=== PATIENT | male | born 1955 | race Caucasian/White ===

== ENCOUNTER 2020-11-16 10:09 | Outpatient (CLI) | payer OTHER, SELFPAY ==
--- NOTE | 2020-11-16 12:47 | ONC CON_ITS ---
Dr. Jane New Patient Note Patient: Jt Tate V Unit #: [id number]: 1955 Dicatated By: Andre Jane M.D.Date of Visit: Nov 16, 2020 Onc MED New Patient/Consult Referring Physician: YULIA Johnson Chief Complaint: Lymphoma. History of Present Illness: This is a 65 year-old man with low-grade non-Hodgkin's lymphoma. He had presented in February 2011 with a distal small bowel obstruction. He underwent exploratory laparotomy with segmental small bowel resection. Pathology showed follicular lymphoma which was involving the entire wall of the bowel and extending into the mesentery soft tissue and lymph nodes, but the margins were reported to be free. A PET CT at that time showed mild increased activity adjacent to the surgical site in the left lower abdomen which was felt to most likely represent postoperative change. There was slightly greater than usual activity at the anticipated level of the terminal ileum. There were just a few abdominal lymph nodes which showed no abnormal hypermetabolic activity. He received no further treatment. He had been seen here intermittently from June 2012 through January 2016. During that time, there have been no significant disease progression. He then continued his further follow-up with oncologist and [facility]. As of May 2019 there had been significant disease progression by CT scan, most significantly in a left iliac lymph node which had gradually increased to 8 cm. At that point he did complete a 4-week course of rituximab, which he tolerated well. His most recent follow-up CT scans, from 11/18/2019, showed indeterminant right paratracheal/precarinal lymph node measuring 15 x 12 mm. There is no other adenopathy in the chest. There is a 9 mm subpleural calcified granuloma in the posterior right lower lobe and a 1.5 mm lateral left lower lobe noncalcified nodule. The abdomen/pelvis showed 2 adjacent left upper mesenteric masses, one measuring 4.13 x 3.70 cm and the other located slightly anterior and inferior measuring 2.76 x 1.49 cm. A radha mass measuring 3.22 x 3.66 cm was noted slightly more inferior in the left paramedian mesentery. Scattered retroperitoneal lymph nodes were noted including a 1.6 x 1.0 cm aortocaval node and a 1.6 x 0.9 cm para-aortic node at the level of the renal chester. There were nodes at the left iliac bifurcation, the largest measuring 1.0 x 0.9 cm. A left external iliac node measured 2.50 x 1.63 cm and a left obturator/more proximal external iliac lymph node measured 2.06 x 1.65 cm. At that point he continued on observation/expectant management. His other medical illnesses include hypertension, type II diabetes, and obstructive sleep apnea. He has been able to manage the diabetes with diet. He has history of smoking 1 pack of cigarettes daily. INTERIM HISTORY: He is seen for a followup visit, as he had retired in June and he is now living back in the [facility]. He has been feeling good generally. He has good energy and activity tolerance. His ECOG score is 0. His appetite is good. He has had an intentional 30 pound weight loss for management of his diabetes. He does not have fever or night sweats. He has no shortness of breath, cough, or chest pain. Last year he underwent cholecystectomy for symptomatic cholelithiasis. He currently has no GI or complaints. He has developed some joint pain, mainly in the hands, right shoulder, and left knee. He sometimes has headache. He has no focal neurologic symptoms. Past Medical History: His medical history includes hypertension, low-grade lymphoma, obstructive sleep apnea, and type II diabetes. Past Surgical History: His surgical/procedural history includes arthroscopic right knee surgery x 2, tonsillectomy, cholecystectomy in 2019, Colonoscopy in 2011, and exploratory laparotomy with segmental small bowel resection in 2010. Medications: Sildenafil Citrate Tablet Oral Allergies: No Known Allergies. Social History: Mr. 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 He has a history of smoking 1 pack of cigarettes daily for 40 years. He currently does not drink alcohol. Family History: Father of lung cancer at age 68. Mother in her 70s of cancer, probably [employer] origin. A sister has lupus. Review Of Symptoms: Constitutional - He has been feeling good generally. He has good energy and activity tolerance. His appetite has been good. He has had an intentional weight loss of 30 pounds for management of diabetes. He does not have fever or night sweats. ECOG score is 0, Eyes - No change in vision, ENMT - No hearing loss or tinnitus. No sinus congestion/drainage. No mouth sores. No sore throat or difficulty swallowing, Hematologic/Lymphatic - No abnormal bruising or bleeding, Respiratory - No shortness of breath. He has nonproductive cough. No pleuritic pain or hemoptysis, Cardiovascular - No angina pain. No palpitations, Gastrointestinal - No nausea or vomiting. No heartburn or acid reflux. No diarrhea or constipation. No blood in the stool or black stools, Genitourinary (M) - No dysuria or hematuria. No urinary frequency. No urgency or incontinence, Musculoskeletal - He has little arthritis pain in his hands, and his left knee, and in his right shoulder, Integumentary - No skin rash or other skin problems, Neurologic - No headache or dizziness. No numbness or tingling. No other focal neurologic symptoms, Psychiatric - No anxiety or depression. No insomnia. Vital Signs: Performed on Nov 16, 2020 11:00: 0, 0, 30.38 (HIGH), 2.24 sq.m, 72.00 in, 98 %, 69 /min, 18 /min, 167/84 mm(hg) (HIGH), 98.6 F, and 224 lbs (LOW). Physical Examination: Constitutional - He appears to be in good general health, Eyes - Sclerae nonicteric. Conjunctivae clear, ENMT - No lesions noted in the oral cavity, Neck - No mass or thyromegaly, Hematologic/Lymphatic - No cervical, clavicular, or axillary adenopathy, Respiratory - Lungs are clear with some decrease in air movement bilaterally, Cardiovascular - Heart rhythm is regular. There is a II/ systolic murmur. There is no gallop or rub noted, Abdomen - Soft and non-tender. Liver and spleen are not enlarged. There is no abdominal mass or ascites noted and there is no inguinal adenopathy, Back/Spine - No spine or CVA tenderness noted, Extremities - No edema, Integumentary - No rashes. No suspicious skin lesions noted, Neurologic - No focal neurologic deficits noted. Lab/Imaging: His recent laboratory studies included comprehensive metabolic profile which showed BUN 14 and creatinine 1.28 mg/dL, total bilirubin 0.7 mg/dL, normal alkaline phosphatase and SGOT, and slightly elevated SGPT at 44/41 U/L. PSA was low at 0.4 ng/mL. His lipid profile showed total cholesterol 163 mg/dL, low HDL at 35 mg/dL, and calculated LDL 117 mg/dL. Problem List: 1. Low-grade non-Hodgkin's lymphoma (follicular B-cell lymphoma). 2. Hypertension. 3. Type 2 diabetes, diet controlled. 4. GERD. 5. Obstructive sleep apnea. Problems Addressed with this Encounter and Plan: Patient with low-grade non-Hodgkin's lymphoma (follicular B-cell lymphoma) involving the small intestine, for which he underwent exploratory laparotomy/segmental small bowel resection in February 2011. He was then followed expectantly. In May 2019 he began a 4-week course of rituximab for disease progression in the abdomen/pelvis region. He tolerated the treatment well, and he appears to have had a good response. His most recent CT scans, from October 2019, did show residual disease in the abdominal mesentery on the left side as well as some radha disease in the retroperitoneum and left iliac area. He has not been symptomatic with it. At this point I will review his October 2019 CT scans for comparison to prior studies done here, as he does have discs with him. It is my expectation that he will then be scheduled to have restaging CT scans done here, as it has been a year since his last studies. He will have further evaluation as indicated. However, in the absence of symptomatic disease progression, he will just remain on observation/expectant management. Signed By: Andre Jane M.D. <<Signature on File>>
== END 2020-11-16 10:10 | disposition home or self-care (01) ==
LOC: ONCMED 10:13
PROVIDERS: PCP Physician Assistant Medical; Visit Provider Internal Medicine Medical Oncology
DX: C82.88 Other types of follicular lymphoma, lymph nodes of multiple sites (principal); Z92.22 Personal history of monoclonal drug therapy
CPT/HCPCS: 99214

== ENCOUNTER 2020-12-17 15:53 | Outpatient (CLI) | payer OTHER, SELFPAY ==
--- NOTE | 2020-12-18 06:41 | ONC FU_ITS ---
Dr. Jane Patient Follow-Up Note Patient: Jt Tate V Unit #: [id number]: 1955 Dicatated By: Andre Jane M.D.Date of Visit:Dec 17, 2020 Onc Med Follow-up/Prog Note Chief Complaint: Lymphoma. History of Present Illness: This is a 65 year-old man with low-grade non-Hodgkin's lymphoma. He had presented in February 2011 with a distal small bowel obstruction. He underwent exploratory laparotomy with segmental small bowel resection. Pathology showed follicular lymphoma which was involving the entire wall of the bowel and extending into the mesentery soft tissue and lymph nodes, but the margins were reported to be free. A PET CT at that time showed mild increased activity adjacent to the surgical site in the left lower abdomen which was felt to most likely represent postoperative change. There was slightly greater than usual activity at the anticipated level of the terminal ileum. There were just a few abdominal lymph nodes which showed no abnormal hypermetabolic activity. He received no further treatment. He had been seen here intermittently from June 2012 through January 2016. During that time, there have been no significant disease progression. He then continued his further follow-up with oncologist and [place], [place]. As of May 2019 there had been significant disease progression by CT scan, most significantly in a left iliac lymph node which had gradually increased to 8 cm. At that point he did complete a 4-week course of rituximab, which he tolerated well. His most recent follow-up CT scans, from 11/18/2019, showed indeterminant right paratracheal/precarinal lymph node measuring 15 x 12 mm. There was no other adenopathy in the chest. There was a 9 mm subpleural calcified granuloma in the posterior right lower lobe and a 1.5 mm lateral left lower lobe noncalcified nodule. The abdomen/pelvis showed 2 adjacent left upper mesenteric masses, one measuring 4.13 x 3.70 cm and the other located slightly anterior and inferior measuring 2.76 x 1.49 cm. A radha mass measuring 3.22 x 3.66 cm was noted slightly more inferior in the left paramedian mesentery. Scattered retroperitoneal lymph nodes were noted including a 1.6 x 1.0 cm aortocaval node and a 1.6 x 0.9 cm para-aortic node at the level of the renal chester. There were nodes at the left iliac bifurcation, the largest measuring 1.0 x 0.9 cm. A left external iliac node measured 2.50 x 1.63 cm and a left obturator/more proximal external iliac lymph node measured 2.06 x 1.65 cm. At that point he continued on observation/expectant management. His other medical illnesses include hypertension, type II diabetes, and obstructive sleep apnea. He has been able to manage the diabetes with diet. He has history of smoking 1 pack of cigarettes daily. INTERIM HISTORY: He returned here for a follow-up visit on 11/16/2020. At that time he was not overtly symptomatic. He had a restaging CT scans of the chest, abdomen, and pelvis on 11/25/2020. There was no evidence for lymphadenopathy in the chest area. There was noted to be a calcified right hilar lymph node and calcified granulomas in the right lung. A noncalcified nodule in the left lower lobe measure 2 mm. The abdomen/pelvis showed multiple enlarged periaortic and aortocaval lymph nodes ranging from 1 to 2.5 cm. There were bilateral enlarged iliac lymph nodes ranging from 1 to 5 cm, more prominent on the left. A left mesenteric mass measuring 7.8 x 7.8 x 6.8 cm was noted to encase the mesenteric vessels that appeared contiguous with surrounding small bowel loops. A second irregular mass contiguous with the adjacent small bowel within the left lower hemiabdomen measured 5 cm. There was an additional mid lower mesentery mass or enlarged lymph nodes measuring 4.5 cm. There were multilevel level lumbar discogenic and facet degenerative changes contributing to severe spinal canal stenosis at L3/4. I reviewed those studies with the radiologist, and in comparison to the prior CT scans from 11/18/2019, there was significant disease progression. He is seen for a follow-up visit. He still feels good generally, though he notes that he does gets worn out quickly. His ECOG score is 1. He has good appetite. He has not had fever. He sometimes has sweating at night. He has had some cough. He does not complain of shortness of breath or chest pain. He occasionally has pain in his abdomen/left side. He has no other GI complaints with the exception that he has been passing smaller caliber stools. Bladder function has been okay. He has pain in his right shoulder and left knee. He has not been having any significant back pain, and he has no focal neurologic symptoms. Medications: Sildenafil Citrate Tablet Oral Allergies: No Known Allergies. Vital Signs: Performed on Dec 17, 2020 16:05 Height - 72.00 in Weight - 203.2 lbs (LOW) BSA - 2.14 sq.m BMI - 27.56 Temperature - 99.2 F (HIGH) Pulse - 75 /min Respiration - 18 /min BP - 171/86 mm(hg) (HIGH) O2 Sat - 97 % Pain - 0 Fatigue - 4 Physical Examination: Constitutional - He looks good generally, Eyes - Sclerae nonicteric. Conjunctivae clear, ENMT - No lesions noted in the oral cavity, Hematologic/Lymphatic - No cervical, clavicular, or axillary adenopathy noted, Respiratory - Lungs are clear with some decrease in air movement bilaterally, Cardiovascular - Heart rhythm is regular. There is a II/ systolic murmur. There is no gallop or rub noted, Abdomen - Soft. Liver and spleen are not enlarged. There is no abdominal mass or ascites noted and there is no inguinal adenopathy, Extremities - No edema, Neurologic - No focal neurologic deficits noted. Problem List: 1. Low-grade non-Hodgkin's lymphoma (follicular B-cell lymphoma). 2. Hypertension. 3. Type 2 diabetes, diet controlled. 4. GERD. 5. Obstructive sleep apnea. Problems Addressed with this Encounter and Plan: Patient with low-grade non-Hodgkin's lymphoma (follicular B-cell lymphoma) involving the small intestine, for which he underwent exploratory laparotomy/segmental small bowel resection in February 2011. He was then followed expectantly. In May 2019 he began a 4-week course of rituximab for disease progression in the abdomen/pelvis region. He tolerated the treatment well, and he appeared to have a good response. His repeat CT scans from October 2019 did show residual disease in the abdominal mesentery on the left side as well as some radha disease in the retroperitoneum and left iliac area. His restaging CT scans from 11/25/2020 showed significant disease progression including a left mesenteric mass measuring 7.8 x 7.8 x 6.8 cm. He appears to be only minimally symptomatic. However, with fairly rapid disease progression and with relatively bulky disease, he is recommended to proceed with second line treatment. I do have some concern about the possibility of transformation to high-grade lymphoma. As such, I am first going to schedule him for restaging PET/CT, subject to verification of insurance coverage. I will consider further evaluation with biopsy if there are areas of higher level FDG avidity. Otherwise, he will proceed to second line treatment with bendamustine a combination with obinutuzumab. Again, will be subject to verification of insurance coverage. Signed By: Andre Jane M.D. <<Signature on File>>
== END 2020-12-17 15:54 | disposition home or self-care (01) ==
LOC: ONCMED 15:56
PROVIDERS: PCP Physician Assistant Medical; Visit Provider Internal Medicine Medical Oncology
DX: C82.88 Other types of follicular lymphoma, lymph nodes of multiple sites (principal); I10 Essential (primary) hypertension; G47.33 Obstructive sleep apnea (adult) (pediatric); N52.9 Male erectile dysfunction, unspecified; E11.9 Type 2 diabetes mellitus without complications; K21.9 Gastro-esophageal reflux disease without esophagitis; Z79.899 Other long term (current) drug therapy
CPT/HCPCS: 99214

== ENCOUNTER 2021-01-19 06:56 | Outpatient (CLI) | payer OTHER, SELFPAY ==
--- NOTE | 2021-01-19 | US_ITS ---
WS: [id number] INDICATION: Ultrasound biopsy left obturator lymph node TECHNIQUE: The procedure including risks, benefits, and complications were discussed with the patient who agreed to proceed. Timeout was performed. Patient was prepped and draped in usual sterile fashio n. After 1% lidocaine, using ultrasound guidance, 5 18-gauge cores were obtained of the left obturato r lymph node. Patient remained in the ultrasound Suite 10 minutes postprocedure to assess for bleedin g with ultrasound guidance. No immediate complications. Patient was discharged in stable condition. US/US biopsy lymph node [id number] IMPRESSION: Uncomplicated biopsy left obturator lymph node.
[2021-01-22 09:35] LABS: Miscellaneous Test See Scanned Lab Rpt
== END 2021-01-19 06:57 | disposition home or self-care (01) ==
LOC: RAD 06:56
PROVIDERS: PCP Physician Assistant Medical; Visit Provider Internal Medicine Medical Oncology
DX: C85.90 Non-Hodgkin lymphoma, unspecified, unspecified site (principal)
CPT/HCPCS: 38505; 76942; 88184; 88185; 88271; 88275; 88305

== ENCOUNTER 2021-02-23 08:33 | Outpatient (CLI) | payer OTHER, SELFPAY ==
--- NOTE | 2021-02-23 19:53 | ONC FU_ITS ---
Dr. Jane Patient Follow-Up Note Patient: Jt Tate V Unit #: [id number]: 1955 Dicatated By: Andre Jane M.D.Date of Visit:Feb 23, 2021 Onc Med Follow-up/Prog Note Chief Complaint: Lymphoma. History of Present Illness: This is a 65 year-old man with low-grade non-Hodgkin's lymphoma. He had presented in February 2011 with a distal small bowel obstruction. He underwent exploratory laparotomy with segmental small bowel resection. Pathology showed follicular lymphoma which was involving the entire wall of the bowel and extending into the mesentery soft tissue and lymph nodes, but the margins were reported to be free. A PET CT at that time showed mild increased activity adjacent to the surgical site in the left lower abdomen which was felt to most likely represent postoperative change. There was slightly greater than usual activity at the anticipated level of the terminal ileum. There were just a few abdominal lymph nodes which showed no abnormal hypermetabolic activity. He received no further treatment. He had been seen here intermittently from June 2012 through January 2016. During that time, there have been no significant disease progression. He then continued his further follow-up with oncologist and [place], [place]. As of May 2019 there had been significant disease progression by CT scan, most significantly in a left iliac lymph node which had gradually increased to 8 cm. At that point he did complete a 4-week course of rituximab, which he tolerated well. His most recent follow-up CT scans, from 11/18/2019, showed indeterminant right paratracheal/precarinal lymph node measuring 15 x 12 mm. There was no other adenopathy in the chest. There was a 9 mm subpleural calcified granuloma in the posterior right lower lobe and a 1.5 mm lateral left lower lobe noncalcified nodule. The abdomen/pelvis showed 2 adjacent left upper mesenteric masses, one measuring 4.13 x 3.70 cm and the other located slightly anterior and inferior measuring 2.76 x 1.49 cm. A radha mass measuring 3.22 x 3.66 cm was noted slightly more inferior in the left paramedian mesentery. Scattered retroperitoneal lymph nodes were noted including a 1.6 x 1.0 cm aortocaval node and a 1.6 x 0.9 cm para-aortic node at the level of the renal chester. There were nodes at the left iliac bifurcation, the largest measuring 1.0 x 0.9 cm. A left external iliac node measured 2.50 x 1.63 cm and a left obturator/more proximal external iliac lymph node measured 2.06 x 1.65 cm. At that point he continued on observation/expectant management. His other medical illnesses include hypertension, type II diabetes, and obstructive sleep apnea. He has been able to manage the diabetes with diet. He has history of smoking 1 pack of cigarettes daily. INTERIM HISTORY: He returned here for a follow-up visit on 11/16/2020. At that time he was not overtly symptomatic. He had a restaging CT scans of the chest, abdomen, and pelvis on 11/25/2020. There was no evidence for lymphadenopathy in the chest area. There was noted to be a calcified right hilar lymph node and calcified granulomas in the right lung. A noncalcified nodule in the left lower lobe measure 2 mm. The abdomen/pelvis showed multiple enlarged periaortic and aortocaval lymph nodes ranging from 1 to 2.5 cm. There were bilateral enlarged iliac lymph nodes ranging from 1 to 5 cm, more prominent on the left. A left mesenteric mass measuring 7.8 x 7.8 x 6.8 cm was noted to encase the mesenteric vessels that appeared contiguous with surrounding small bowel loops. A second irregular mass contiguous with the adjacent small bowel within the left lower hemiabdomen measured 5 cm. There was an additional mid lower mesentery mass or enlarged lymph nodes measuring 4.5 cm. There were multilevel level lumbar discogenic and facet degenerative changes contributing to severe spinal canal stenosis at L3/4. I reviewed those studies with the radiologist, and in comparison to the prior CT scans from 11/18/2019, there was significant disease progression. Restaging PET/CT on 01/02/2021 showed small FDG positive left supraclavicular, posterior triangle, jugulodigastric, and thoracic inlet lymph nodes, likely involved with lymphoma. A left upper quadrant mesenteric mass measured 10.1 x 7.3 cm with SUV 12.3 and a secondary mesenteric mass measured 4.1 x 3.2 cm with SUV 11.6. Other smaller mesenteric nodes were also FDG positive and consistent with recurrent lymphoma. Also noted were bilateral retroperitoneal nodes, left common iliac node, and left pelvic nodes, consistent with lymphoma. An index left obturator node measured 4.1 x 3.7 cm with SUV 27.2. A superficial left inguinal node was also FDG positive. With the relatively high SUV in the left obturator lymph node I felt that biopsy was indicated to assess for possible transition to high-grade lymphoma. He then underwent ultrasound directed biopsy on 01/19/2021. Pathology was suspicious for involvement by follicular lymphoma, grade 1-2 of 3. With that finding, I had recommended that he proceed to 2nd line treatment with bendamustine in combination with obinutuzumab, and he is seen here today to initiate that treatment. He is still feeling good generally. He has good energy and is still has normal activity. ECOG score is 0. Appetite is good. He has no fever or night sweats. He does have some cough which he attributes to smoking, and he does have some shortness of breath with activity. He does not complain of chest pain. He reports that he belches a lot, his acid reflux symptoms actually have improved. He sometimes has pain in the abdominal area. He has no problems with bowel or bladder function. He has some joint pain, mainly in the knees and hands. He has just occasional headache. He has no focal neurologic symptoms. Medications: Sildenafil Citrate Tablet Oral Allergies: No Known Allergies. Vital Signs: Performed on Feb 23, 2021 11:58 Height - 72.00 in Weight - 222.6 lbs (HIGH) BSA - 2.23 sq.m BMI - 30.19 (HIGH) Temperature - 97.8 F (LOW) Pulse - 71 /min Respiration - 18 /min BP - 166/86 mm(hg) (HIGH) O2 Sat - 94 % (LOW) Pain - 0 Physical Examination: Constitutional - He looks good generally, Eyes - Sclerae nonicteric. Conjunctivae clear, ENMT - No lesions noted in the oral cavity, Hematologic/Lymphatic - No cervical, clavicular, or axillary adenopathy noted, Respiratory - Lungs are clear with some decrease in air movement bilaterally, Cardiovascular - Heart rhythm is regular. There is a II/ systolic murmur. There is no gallop or rub noted, Abdomen - Soft. Liver and spleen are not enlarged. There is no abdominal mass or ascites noted. There is a palpable left inguinal lymph node measuring the range of 1 to 2 cm, Extremities - No edema, Neurologic - No focal neurologic deficits noted. Lab/Imaging: Test performed on Feb 18, 2021 11:30 Glucose 127 mg/dL BUN 12 mg/dL Creatinine 1.02 mg/dL Cr Clearance (Est) 96.64 mL/min Sodium 139 mmol/L Potassium 4.3 mmol/L Chloride 106 mmol/L CO2 25 mmol/L Calcium 9.3 mg/dL Protein, Total 6.7 g/dL Albumin 4.0 g/dL Globulin 2.7 g/dL Bilirubin, Total 0.5 mg/dL Alkaline Phosphatase 56 IU/L AST (SGOT) 22 IU/L ALT (SGPT) 25 IU/L WBC 6.8 10^9/L RBC 5.05 10^12/L HGB 15.2 g/dL HCT 44.6 % MCV 88.3 fl MCH 30.1 pg MCHC 34.1 g/dL RDW 12.0 % Platelet Count 295 10^9/L MPV 10.4 fL Neutrophils (Gran) 4413 10^9/L Lymphocytes 1421 10^9/L Monocytes 653 10^9/L Eosinophils 211 10^9/L Basophils 102 10^9/L Manual Lymphocytes 20.9 % Manual Monocytes 9.6 % Manual Eosinophils 3.1 % Manual Basophils 1.5 % Problem List: 1. Low-grade non-Hodgkin's lymphoma (follicular B-cell lymphoma). 2. Hypertension. 3. Type 2 diabetes, diet controlled. 4. GERD. 5. Obstructive sleep apnea. Problems Addressed with this Encounter and Plan: Patient with low-grade non-Hodgkin's lymphoma (follicular B-cell lymphoma) involving the small intestine, for which he underwent exploratory laparotomy/segmental small bowel resection in February 2011. He was then followed expectantly. In May 2019 he began a 4-week course of rituximab for disease progression in the abdomen/pelvis region. He tolerated the treatment well, and he appeared to have a good response. His repeat CT scans from October 2019 did show residual disease in the abdominal mesentery on the left side as well as some radha disease in the retroperitoneum and left iliac area. His restaging CT scans from 11/25/2020 showed significant disease progression including a left mesenteric mass measuring 7.8 x 7.8 x 6.8 cm. He appears to be only minimally symptomatic. However, with fairly rapid disease progression I was concerned about the possibility of transformation to high-grade lymphoma. His restaging PET/CT on 01/02/2021 did show extensive involvement in the abdomen and pelvis, including a left obturator lymph node with a relatively high SUV at 27.2. With that finding, he underwent ultrasound directed biopsy of the left obturator lymph node on 01/19/2021. Pathology was suspicious for involvement by follicular lymphoma, grade 1-2 of 3. With significant progression of low-grade lymphoma, he was recommended to proceed to second line treatment with bendamustine and combination with obinutuzumab, and he has been scheduled to begin that treatment today. However, he had opted not to be vaccinated for the COVID-19 virus. As such, this treatment would increase his risk of having severe illness if he were to contract the COVID-19 virus infection and it would also impair his ability to respond to the Covid 19 virus vaccination for at least 6 to 12 months. Because of that I am going to confer with one of the lymphoma specialist at [facility] before initiating any treatment. Signed By: Andre Jane M.D. <<Signature on File>>
== END 2021-02-23 08:34 | disposition home or self-care (01) ==
LOC: ONCMED 08:35
PROVIDERS: PCP Physician Assistant Medical; Visit Provider Internal Medicine Medical Oncology
DX: C82.93 Follicular lymphoma, unspecified, intra-abdominal lymph nodes (principal); I10 Essential (primary) hypertension; E11.9 Type 2 diabetes mellitus without complications; K21.9 Gastro-esophageal reflux disease without esophagitis; G47.33 Obstructive sleep apnea (adult) (pediatric); Z79.899 Other long term (current) drug therapy
CPT/HCPCS: 99214

== ENCOUNTER 2021-04-19 05:33 | Outpatient (RCR) | payer OTHER, SELFPAY ==
[2021-04-05 08:58] LABS: Basophils # 0.1 10^3/uL (0.0-0.1); Basophils % 1.4 %; Eosinophils # 0.3 10^3/uL (0.0-0.8); Eosinophils % 3.7 %; Hematocrit 45.9 % (42.0-52.0); Hemoglobin 15.4 g/dL (11.7-16.6); Lymphocytes # 1.1 10^3/uL (0.8-4.8); Lymphocytes % 14.9 %; Mean Corpuscular HGB Conc 33.6 g/dL (30.0-36.0); Mean Corpuscular Hemoglobin 29.6 pg (28.0-34.0); Mean Corpuscular Volume 88.3 fl (80-94); Mean Platelet Volume 10.1 fL (7.4-10.4); Monocytes # 0.7 10^3/uL (0.2-0.9); Monocytes % 9.2 %; Neutrophils # 5.14 10^3/uL (1.8-7.7); Neutrophils % 70.4 %; Nucleated Red Blood Cells % 0 %; Platelet Count 255 10^3/cmm (130-400); Red Cell Distribution Width 12.6 % (12.1-15.1); White Blood Count 7.3 10^3/uL (4.0-10.0)
[2021-04-05 09:27] LABS: Alanine Aminotransferase 22 U/L (0-41); Albumin Level 3.9 g/dL (3.5-5.2); Alkaline Phosphatase 60 IU/L (40-130); Anion Gap 13.4 (5-19); Aspartate Amino Transferase 17 U/L (0-40); Blood Urea Nitrogen 13 mg/dL (8-23); Carbon Dioxide 24 mmol/L (22-29); Chloride 105 mmol/L (98-107); Globulin 2.7 g/dL (1.3-4.6); Glomerular Filtration Rate 85.2 mL/min (90-130); Glucose 159 mg/dL (65-115); Osmolality Calculated 289 mOsm/kg (285-295); Potassium 4.4 mmol/L (3.5-5.1); Sodium 138 mmol/L (136-145); Total Bilirubin 0.7 mg/dL (0.15-1.2); Total Protein 6.6 g/dL (6.6-8.7)
[2021-04-05] MEDS: sodium chloride 0.9% 500 ML 999 ML IV (10:05)
[2021-04-05] MEDS: acetaminophen 325 mg Tablet 650 MG PO (10:05)
[2021-04-05] MEDS: diphenhydrAMINE 50 mg/mL SDV 1mL IVP (10:05)
[2021-04-05 10:30] LABS: Lactate Dehydrogenase 225 U/L (135-225)
[2021-04-05] MEDS: dexamethasone 20 MG in sodium chloride 0.9% 50 ML 187 MG IV (10:50)
[2021-04-05] MEDS: diphenhydrAMINE 50 mg/mL SDV 1mL 25 MG IVP (13:20)
--- NOTE | 2021-04-05 17:15 | ONC FU_ITS ---
Dr. Jane Patient Follow-Up Note Patient: Jt Tate V Unit #: [id number]: 1955 Dicatated By: Andre Jane M.D.Date of Visit:Apr 05, 2021 Onc Med Follow-up/Prog Note Chief Complaint: Lymphoma. History of Present Illness: This is a 65 year-old man with low-grade non-Hodgkin's lymphoma. He had presented in February 2011 with a distal small bowel obstruction. He underwent exploratory laparotomy with segmental small bowel resection. Pathology showed follicular lymphoma which was involving the entire wall of the bowel and extending into the mesentery soft tissue and lymph nodes, but the margins were reported to be free. A PET CT at that time showed mild increased activity adjacent to the surgical site in the left lower abdomen which was felt to most likely represent postoperative change. There was slightly greater than usual activity at the anticipated level of the terminal ileum. There were just a few abdominal lymph nodes which showed no abnormal hypermetabolic activity. He received no further treatment. He had been seen here intermittently from June 2012 through January 2016. During that time, there have been no significant disease progression. He then continued his further follow-up with oncologist and [place], [place]. As of May 2019 there had been significant disease progression by CT scan, most significantly in a left iliac lymph node which had gradually increased to 8 cm. At that point he did complete a 4-week course of rituximab, which he tolerated well. His most recent follow-up CT scans, from 11/18/2019, showed indeterminant right paratracheal/precarinal lymph node measuring 15 x 12 mm. There was no other adenopathy in the chest. There was a 9 mm subpleural calcified granuloma in the posterior right lower lobe and a 1.5 mm lateral left lower lobe noncalcified nodule. The abdomen/pelvis showed 2 adjacent left upper mesenteric masses, one measuring 4.13 x 3.70 cm and the other located slightly anterior and inferior measuring 2.76 x 1.49 cm. A radha mass measuring 3.22 x 3.66 cm was noted slightly more inferior in the left paramedian mesentery. Scattered retroperitoneal lymph nodes were noted including a 1.6 x 1.0 cm aortocaval node and a 1.6 x 0.9 cm para-aortic node at the level of the renal chester. There were nodes at the left iliac bifurcation, the largest measuring 1.0 x 0.9 cm. A left external iliac node measured 2.50 x 1.63 cm and a left obturator/more proximal external iliac lymph node measured 2.06 x 1.65 cm. At that point he continued on observation/expectant management. His other medical illnesses include hypertension, type II diabetes, and obstructive sleep apnea. He has been able to manage the diabetes with diet. He has history of smoking 1 pack of cigarettes daily. INTERIM HISTORY: He returned here for a follow-up visit on 11/16/2020. At that time he was not overtly symptomatic. He had a restaging CT scans of the chest, abdomen, and pelvis on 11/25/2020. There was no evidence for lymphadenopathy in the chest area. There was noted to be a calcified right hilar lymph node and calcified granulomas in the right lung. A noncalcified nodule in the left lower lobe measure 2 mm. The abdomen/pelvis showed multiple enlarged periaortic and aortocaval lymph nodes ranging from 1 to 2.5 cm. There were bilateral enlarged iliac lymph nodes ranging from 1 to 5 cm, more prominent on the left. A left mesenteric mass measuring 7.8 x 7.8 x 6.8 cm was noted to encase the mesenteric vessels that appeared contiguous with surrounding small bowel loops. A second irregular mass contiguous with the adjacent small bowel within the left lower hemiabdomen measured 5 cm. There was an additional mid lower mesentery mass or enlarged lymph nodes measuring 4.5 cm. There were multilevel level lumbar discogenic and facet degenerative changes contributing to severe spinal canal stenosis at L3/4. I reviewed those studies with the radiologist, and in comparison to the prior CT scans from 11/18/2019, there was significant disease progression. Restaging PET/CT on 01/02/2021 showed small FDG positive left supraclavicular, posterior triangle, jugulodigastric, and thoracic inlet lymph nodes, likely involved with lymphoma. A left upper quadrant mesenteric mass measured 10.1 x 7.3 cm with SUV 12.3 and a secondary mesenteric mass measured 4.1 x 3.2 cm with SUV 11.6. Other smaller mesenteric nodes were also FDG positive and consistent with recurrent lymphoma. Also noted were bilateral retroperitoneal nodes, left common iliac node, and left pelvic nodes, consistent with lymphoma. An index left obturator node measured 4.1 x 3.7 cm with SUV 27.2. A superficial left inguinal node was also FDG positive. With the relatively high SUV in the left obturator lymph node I felt that biopsy was indicated to assess for possible transition to high-grade lymphoma. He then underwent ultrasound directed biopsy on 01/19/2021. Pathology was suspicious for involvement by follicular lymphoma, grade 1-2 of 3. With that finding, I had recommended that he proceed to 2nd line treatment with bendamustine in combination with obinutuzumab. I had seen him for initiation of treatment on 02/23/2021. At that point he had not been vaccinated for COVID-19 and given the potential immunosuppression that would be associated anti-CD20 therapy and also with bendamustine, I had strongly recommended that he be vaccinated prior to starting treatment. He did agree, and he is now 6 weeks out from receiving the [employer] Covid vaccine. He is still feeling good generally. Energy is pretty good. He is able to do light work. ECOG score is 1. Appetite is also good. He has not had fever. He has a little bit of night sweating. He does not complain of shortness of breath, cough, or chest pain. He has no GI or complaints. He has some joint pain, which is chronic. He does not complain of headache or dizziness, and he has no focal neurologic symptoms. Medications: Sildenafil Citrate Tablet Oral Allergies: No Known Allergies. Vital Signs: Performed on Apr 05, 2021 15:53 Height - 72.00 in Temperature - 98.8 F Pulse - 94 /min Respiration - 18 /min BP - 136/86 mm(hg) O2 Sat - 94 % (LOW) Performed on Apr 05, 2021 10:05 Height - 72.00 in Weight - 226.4 lbs (HIGH) BSA - 2.25 sq.m BMI - 30.71 (HIGH) Temperature - 98.6 F Pulse - 74 /min Respiration - 18 /min BP - 154/87 mm(hg) (HIGH) O2 Sat - 96 % Pain - 0 Fatigue - 0 Physical Examination: Constitutional - He looks good generally, Eyes - Sclerae nonicteric. Conjunctivae clear, ENMT - No lesions noted in the oral cavity, Hematologic/Lymphatic - No cervical, clavicular, or axillary adenopathy noted, Respiratory - Lungs are clear with some decrease in air movement bilaterally, Cardiovascular - Heart rhythm is regular. There is a II/ systolic murmur. There is no gallop or rub noted, Abdomen - Soft. Liver and spleen are not enlarged. There is no abdominal mass or ascites noted. There is a palpable left inguinal lymph node measuring the range of 2 cm, Extremities - No edema, Neurologic - No focal neurologic deficits noted. Lab/Imaging: Test performed on Apr 05, 2021 08:15 LDH (Total) 225 U/L Sodium 138 mmol/L Potassium 4.4 mmol/L Chloride 105 mmol/L CO2 24 mmol/L Anion Gap 13.4 BUN 13 mg/dL Creatinine 0.9 mg/dL Cr Clearance (Est) 122.03 mL/min eGFR 85.2 mL/min Glucose 159 mg/dL Osmolality - Calculated 289 mOsm/kg Calcium 9.0 mg/dL Protein, Total 6.6 g/dL Albumin 3.9 g/dL Globulin 2.7 g/dL Bilirubin, Total 0.7 mg/dL ALT (SGPT) 22 U/L AST (SGOT) 17 U/L Alkaline Phosphatase 60 IU/L WBC 7.3 10 3/uL RBC 5.20 10 6/uL HGB 15.4 g/dL HCT 45.9 % MCV 88.3 fl MCH 29.6 pg MCHC 33.6 g/dL RDW 12.6 % Platelet Count 255 10 3/cmm MPV 10.1 fL Neutrophils 5.14 10 3/uL Lymphocytes 1.1 10 3/uL Monocytes 0.7 10 3/uL Eosinophils 0.3 10 3/uL Basophils 0.1 10 3/uL Neutrophil % 70.4 % Lymphocyte % 14.9 % Monocyte % 9.2 % Eosinophil % 3.7 % Basophils % 1.4 % NRBC % 0 % Problem List: 1. Low-grade non-Hodgkin's lymphoma (follicular B-cell lymphoma). 2. Hypertension. 3. Type 2 diabetes, diet controlled. 4. GERD. 5. Obstructive sleep apnea. Problems Addressed with this Encounter and Plan: Patient with low-grade non-Hodgkin's lymphoma (follicular B-cell lymphoma) involving the small intestine, for which he underwent exploratory laparotomy/segmental small bowel resection in February 2011. He was then followed expectantly. In May 2019 he began a 4-week course of rituximab for disease progression in the abdomen/pelvis region. He tolerated the treatment well, and he appeared to have a good response. His repeat CT scans from October 2019 did show residual disease in the abdominal mesentery on the left side as well as some radha disease in the retroperitoneum and left iliac area. His restaging CT scans from 11/25/2020 showed significant disease progression including a left mesenteric mass measuring 7.8 x 7.8 x 6.8 cm. He appears to be only minimally symptomatic. However, with fairly rapid disease progression I was concerned about the possibility of transformation to high-grade lymphoma. His restaging PET/CT on 01/02/2021 did show extensive involvement in the abdomen and pelvis, including a left obturator lymph node with a relatively high SUV at 27.2. With that finding, he underwent ultrasound directed biopsy of the left obturator lymph node on 01/19/2021. Pathology was suspicious for involvement by follicular lymphoma, grade 1-2 of 3. With significant progression of low-grade lymphoma, he was recommended to proceed to second line treatment with bendamustine and combination with obinutuzumab. His treatment was initially deferred pending completion of his COVID-19 vaccination. He will now begin cycle 1 of bendamustine/obinutuzumab with the bendamustine administered on days 1 and 2 and with the obinutuzumab administered on days 1, 8, and 15 with the first cycle. His blood counts will be monitored weekly. He will be scheduled for a follow-up visit in 4 weeks. Signed By: Andre Jane M.D. <<Signature on File>>
[2021-04-06] MEDS: sodium chloride 0.9% 500 ML 999 ML IV (08:52)
[2021-04-06] MEDS: dexamethasone 20 MG in sodium chloride 0.9% 50 ML 187 MG IV (08:52)
[2021-04-06] MEDS: acetaminophen 325 mg Tablet 650 MG PO (08:52)
[2021-04-06] MEDS: diphenhydrAMINE 50 mg/mL SDV 1mL IVP (09:24)
[2021-04-06] MEDS: sodium chloride 0.9% (100 ml) 100 ML 500 ML (09:24)
[2021-04-12 08:52] LABS: Basophils # 0.1 10^3/uL (0.0-0.1); Basophils % 0.9 %; Eosinophils # 0.4 10^3/uL (0.0-0.8); Eosinophils % 5.8 %; Hematocrit 44.7 % (42.0-52.0); Hemoglobin 15.2 g/dL (11.7-16.6); Lymphocytes # 0.2 10^3/uL (0.8-4.8); Mean Corpuscular Hemoglobin 29.7 pg (28.0-34.0); Mean Corpuscular Volume 87.5 fl (80-94); Mean Platelet Volume 10.5 fL (7.4-10.4); Monocytes % 12.9 %; Neutrophils # 5.89 10^3/uL (1.8-7.7); Nucleated Red Blood Cells % 0 %; Platelet Count 257 10^3/cmm (130-400); Red Blood Count 5.11 10^6/uL (4.1-5.3); Red Cell Distribution Width 12.5 % (12.1-15.1); White Blood Count 7.7 10^3/uL (4.0-10.0)
[2021-04-12 09:13] LABS: Alanine Aminotransferase 28 U/L (0-41); Albumin Level 3.8 g/dL (3.5-5.2); Alkaline Phosphatase 59 IU/L (40-130); Anion Gap 14.2 (5-19); Aspartate Amino Transferase 17 U/L (0-40); Blood Urea Nitrogen 14 mg/dL (8-23); Calcium 8.8 mg/dL (8.5-10.5); Carbon Dioxide 24 mmol/L (22-29); Chloride 104 mmol/L (98-107); Globulin 2.6 g/dL (1.3-4.6); Glomerular Filtration Rate 97.6 mL/min (90-130); Glucose 128 mg/dL (65-115); Osmolality Calculated 288 mOsm/kg (285-295); Potassium 4.2 mmol/L (3.5-5.1); Sodium 138 mmol/L (136-145); Total Bilirubin 0.9 mg/dL (0.15-1.2); Total Protein 6.4 g/dL (6.6-8.7)
[2021-04-12] MEDS: acetaminophen 325 mg Tablet 650 MG PO (09:30)
[2021-04-12] MEDS: diphenhydrAMINE 50 mg/mL SDV 1mL 25 MG IV (09:32)
[2021-04-12] MEDS: dexamethasone 20 MG in sodium chloride 0.9% 50 ML 187 MG IV (09:35)
[2021-04-12] MEDS: sodium chloride 0.9% 500 ML 999 ML IV (10:00)
[2021-04-19 10:46] LABS: Basophils # 0.1 10^3/uL (0.0-0.1); Basophils % 1.3 %; Eosinophils # 0.2 10^3/uL (0.0-0.8); Eosinophils % 3.2 %; Hematocrit 44.5 % (42.0-52.0); Hemoglobin 14.8 g/dL (11.7-16.6); Lymphocytes # 0.6 10^3/uL (0.8-4.8); Lymphocytes % 7.7 %; Mean Corpuscular HGB Conc 33.3 g/dL (30.0-36.0); Mean Corpuscular Hemoglobin 29.5 pg (28.0-34.0); Mean Corpuscular Volume 88.8 fl (80-94); Mean Platelet Volume 10.2 fL (7.4-10.4); Monocytes # 1.3 10^3/uL (0.2-0.9); Monocytes % 16.9 %; Neutrophils # 5.22 10^3/uL (1.8-7.7); Neutrophils % 70.2 %; Nucleated Red Blood Cells % 0 %; Platelet Count 255 10^3/cmm (130-400); Red Blood Count 5.01 10^6/uL (4.1-5.3); Red Cell Distribution Width 12.8 % (12.1-15.1); White Blood Count 7.4 10^3/uL (4.0-10.0)
[2021-04-19] MEDS: sodium chloride 0.9% (100 ml) 100 ML 300 ML (11:18)
[2021-04-19] MEDS: acetaminophen 325 mg Tablet 650 MG PO (11:18)
[2021-04-19] MEDS: diphenhydrAMINE 50 mg/mL SDV 1mL IVP (11:18)
[2021-04-19] MEDS: sodium chloride 0.9% 500 ML 999 ML IV (11:18)
[2021-04-19] MEDS: dexamethasone 20 MG in sodium chloride 0.9% 50 ML 187 MG IV (11:39)
== END 2021-04-20 23:59 | disposition home or self-care (01) ==
LOC: ONCMED 05:33
PROVIDERS: PCP Physician Assistant Medical; Visit Provider Internal Medicine Medical Oncology
DX: Z51.11 Encounter for antineoplastic chemotherapy (principal); C81.70 Other Hodgkin lymphoma, unspecified site; I10 Essential (primary) hypertension; E11.9 Type 2 diabetes mellitus without complications; K21.9 Gastro-esophageal reflux disease without esophagitis; G47.33 Obstructive sleep apnea (adult) (pediatric); Z79.899 Other long term (current) drug therapy
CPT/HCPCS: 36415; 80053; 83615; 85025; 96367; 96375; 96413; 96415; 96417; 99214; J1100; J1200; J7040; J7050; J9034; J9301

== ENCOUNTER 2021-05-04 08:45 | Outpatient (RCR) | payer OTHER, SELFPAY ==
[2021-04-27 16:42] LABS: Basophils # 0.1 10^3/uL (0.0-0.1); Basophils % 1.6 %; Eosinophils # 0.2 10^3/uL (0.0-0.8); Eosinophils % 2.9 %; Hematocrit 43.6 % (42.0-52.0); Hemoglobin 14.3 g/dL (11.7-16.6); Lymphocytes # 0.9 10^3/uL (0.8-4.8); Lymphocytes % 12.3 %; Mean Corpuscular HGB Conc 32.8 g/dL (30.0-36.0); Mean Corpuscular Hemoglobin 29.2 pg (28.0-34.0); Mean Platelet Volume 9.9 fL (7.4-10.4); Monocytes # 1.5 10^3/uL (0.2-0.9); Monocytes % 19.6 %; Neutrophils # 4.78 10^3/uL (1.8-7.7); Neutrophils % 62.6 %; Nucleated Red Blood Cells % 0 %; Platelet Count 264 10^3/cmm (130-400); Red Cell Distribution Width 12.8 % (12.1-15.1); White Blood Count 7.6 10^3/uL (4.0-10.0)
[2021-05-03 09:42] LABS: Basophils # 0.1 10^3/uL (0.0-0.1); Basophils % 1.3 %; Eosinophils # 0.2 10^3/uL (0.0-0.8); Eosinophils % 2.9 %; Hemoglobin 14.6 g/dL (11.7-16.6); Lymphocytes # 0.6 10^3/uL (0.8-4.8); Lymphocytes % 9.5 %; Mean Corpuscular Hemoglobin 30.4 pg (28.0-34.0); Mean Corpuscular Volume 89.6 fl (80-94); Mean Platelet Volume 10.2 fL (7.4-10.4); Monocytes # 0.8 10^3/uL (0.2-0.9); Monocytes % 12.7 %; Neutrophils # 4.54 10^3/uL (1.8-7.7); Neutrophils % 73.3 %; Nucleated Red Blood Cells % 0 %; Platelet Count 196 10^3/cmm (130-400); Red Cell Distribution Width 12.7 % (12.1-15.1); White Blood Count 6.2 10^3/uL (4.0-10.0)
[2021-05-03 10:28] LABS: Alanine Aminotransferase 34 U/L (0-41); Albumin Level 3.7 g/dL (3.5-5.2); Alkaline Phosphatase 58 IU/L (40-130); Aspartate Amino Transferase 30 U/L (0-40); Blood Urea Nitrogen 10 mg/dL (8-23); Calcium 8.7 mg/dL (8.5-10.5); Carbon Dioxide 24 mmol/L (22-29); Chloride 105 mmol/L (98-107); Globulin 2.6 g/dL (1.3-4.6); Glomerular Filtration Rate 97.6 mL/min (90-130); Glucose 156 mg/dL (65-115); Osmolality Calculated 292 mOsm/kg (285-295); Sodium 140 mmol/L (136-145); Total Bilirubin 0.6 mg/dL (0.15-1.2); Total Protein 6.3 g/dL (6.6-8.7)
[2021-05-03 10:29] LABS: Anion Gap 15.5 (5-19); Potassium 4.5 mmol/L (3.5-5.1)
[2021-05-03] MEDS: sodium chloride 0.9% 500 ML 999 ML IV (10:40)
[2021-05-03] MEDS: acetaminophen 325 mg Tablet 650 MG PO (10:40)
[2021-05-03] MEDS: diphenhydrAMINE 50 mg/mL SDV 1mL IVP (10:40)
[2021-05-03] MEDS: dexamethasone 20 MG in sodium chloride 0.9% 50 ML 187 MG IV (10:45)
--- NOTE | 2021-05-03 16:06 | ONC FU_ITS ---
Dr. Jane Patient Follow-Up Note Patient: Jt Tate V Unit #: [id number]: 1955 Dicatated By: Andre Jane M.D.Date of Visit:May 03, 2021 Onc Med Follow-up/Prog Note Chief Complaint: Lymphoma. History of Present Illness: This is a 65 year-old man with low-grade non-Hodgkin's lymphoma. He had presented in February 2011 with a distal small bowel obstruction. He underwent exploratory laparotomy with segmental small bowel resection. Pathology showed follicular lymphoma which was involving the entire wall of the bowel and extending into the mesentery soft tissue and lymph nodes, but the margins were reported to be free. A PET CT at that time showed mild increased activity adjacent to the surgical site in the left lower abdomen which was felt to most likely represent postoperative change. There was slightly greater than usual activity at the anticipated level of the terminal ileum. There were just a few abdominal lymph nodes which showed no abnormal hypermetabolic activity. He received no further treatment. He had been seen here intermittently from June 2012 through January 2016. During that time, there have been no significant disease progression. He then continued his further follow-up with oncologist and [place], [place]. As of May 2019 there had been significant disease progression by CT scan, most significantly in a left iliac lymph node which had gradually increased to 8 cm. At that point he did complete a 4-week course of rituximab, which he tolerated well. His most recent follow-up CT scans, from 11/18/2019, showed indeterminant right paratracheal/precarinal lymph node measuring 15 x 12 mm. There was no other adenopathy in the chest. There was a 9 mm subpleural calcified granuloma in the posterior right lower lobe and a 1.5 mm lateral left lower lobe noncalcified nodule. The abdomen/pelvis showed 2 adjacent left upper mesenteric masses, one measuring 4.13 x 3.70 cm and the other located slightly anterior and inferior measuring 2.76 x 1.49 cm. A radha mass measuring 3.22 x 3.66 cm was noted slightly more inferior in the left paramedian mesentery. Scattered retroperitoneal lymph nodes were noted including a 1.6 x 1.0 cm aortocaval node and a 1.6 x 0.9 cm para-aortic node at the level of the renal chester. There were nodes at the left iliac bifurcation, the largest measuring 1.0 x 0.9 cm. A left external iliac node measured 2.50 x 1.63 cm and a left obturator/more proximal external iliac lymph node measured 2.06 x 1.65 cm. At that point he continued on observation/expectant management. He returned here for a follow-up visit on 11/16/2020. At that time he was not overtly symptomatic. He had a restaging CT scans of the chest, abdomen, and pelvis on 11/25/2020. There was no evidence for lymphadenopathy in the chest area. There was noted to be a calcified right hilar lymph node and calcified granulomas in the right lung. A noncalcified nodule in the left lower lobe measure 2 mm. The abdomen/pelvis showed multiple enlarged periaortic and aortocaval lymph nodes ranging from 1 to 2.5 cm. There were bilateral enlarged iliac lymph nodes ranging from 1 to 5 cm, more prominent on the left. A left mesenteric mass measuring 7.8 x 7.8 x 6.8 cm was noted to encase the mesenteric vessels that appeared contiguous with surrounding small bowel loops. A second irregular mass contiguous with the adjacent small bowel within the left lower hemiabdomen measured 5 cm. There was an additional mid lower mesentery mass or enlarged lymph nodes measuring 4.5 cm. There were multilevel level lumbar discogenic and facet degenerative changes contributing to severe spinal canal stenosis at L3/4. I reviewed those studies with the radiologist, and in comparison to the prior CT scans from 11/18/2019, there was significant disease progression. Restaging PET/CT on 01/02/2021 showed small FDG positive left supraclavicular, posterior triangle, jugulodigastric, and thoracic inlet lymph nodes, likely involved with lymphoma. A left upper quadrant mesenteric mass measured 10.1 x 7.3 cm with SUV 12.3 and a secondary mesenteric mass measured 4.1 x 3.2 cm with SUV 11.6. Other smaller mesenteric nodes were also FDG positive and consistent with recurrent lymphoma. Also noted were bilateral retroperitoneal nodes, left common iliac node, and left pelvic nodes, consistent with lymphoma. An index left obturator node measured 4.1 x 3.7 cm with SUV 27.2. A superficial left inguinal node was also FDG positive. With the relatively high SUV in the left obturator lymph node I felt that biopsy was indicated to assess for possible transition to high-grade lymphoma. He then underwent ultrasound directed biopsy on 01/19/2021. Pathology was suspicious for involvement by follicular lymphoma, grade 1-2 of 3. With those findings he was recommended to proceed with a course of chemotherapy with bendamustine and combination with obinutuzumab. His treatment was delayed pending completion of COVID-19 vaccination. His other medical illnesses include hypertension, type II diabetes, and obstructive sleep apnea. He has been able to manage the diabetes with diet. He has history of smoking 1 pack of cigarettes daily. INTERIM HISTORY: He began cycle 1 of bendamustine/obinutuzumab on 04/05/2021. The obinutuzumab was administered in a dose escalating fashion with bendamustine on days 1 and 2 of a 28-day cycle. He had just mild symptoms of infusion reaction with the initial infusion of obinutuzumab. He tolerated it well thereafter. He is seen for a follow-up visit. He has been feeling pretty good generally previous has energy was down during the first week of his treatment cycle, and since then it has been up and down. He has normal activity, though. ECOG score is 0. He has good appetite. He has no fever or night sweats. He has not had sore mouth or throat. He had a little bit of cough last night, but he thinks it was just due to dust. He does not complain of shortness of breath or chest pain. He has no GI/ complaints other than occasional acid reflux. He has no significant joint or bone pain. He does not complain of headache or dizziness. He has no focal neurologic symptoms. Medications: Sildenafil Citrate Tablet Oral Allergies: No Known Allergies. Vital Signs: Performed on May 03, 2021 10:23 Height - 72.00 in Weight - 221.2 lbs (HIGH) BSA - 2.22 sq.m BMI - 30.00 Temperature - 97.5 F (LOW) Pulse - 68 /min Respiration - 18 /min BP - 160/85 mm(hg) (HIGH) O2 Sat - 98 % Pain - 0 Fatigue - 3 Physical Examination: Constitutional - He looks good generally, Eyes - Sclerae nonicteric. Conjunctivae clear, ENMT - No lesions noted in the oral cavity, Hematologic/Lymphatic - No cervical, clavicular, or axillary adenopathy noted, Respiratory - Lungs are clear with some decrease in air movement bilaterally, Cardiovascular - Heart rhythm is regular. There is a II/ systolic murmur. There is no gallop or rub noted, Abdomen - Soft. Liver and spleen are not enlarged. There is no abdominal mass or ascites noted. The left inguinal adenopathy appears to have resolved, Extremities - No edema, Neurologic - No focal neurologic deficits noted. Lab/Imaging: Test performed on May 03, 2021 09:00 Sodium 140 mmol/L Potassium 4.5 mmol/L Chloride 105 mmol/L CO2 24 mmol/L Anion Gap 15.5 BUN 10 mg/dL Creatinine 0.8 mg/dL Cr Clearance (Est) 137.2800 mL/min eGFR 97.6 mL/min Glucose 156 mg/dL Osmolality - Calculated 292 mOsm/kg Calcium 8.7 mg/dL Protein, Total 6.3 g/dL Albumin 3.7 g/dL Globulin 2.6 g/dL Bilirubin, Total 0.6 mg/dL ALT (SGPT) 34 U/L AST (SGOT) 30 U/L Alkaline Phosphatase 58 IU/L WBC 6.2 10 3/uL RBC 4.80 10 6/uL HGB 14.6 g/dL HCT 43.0 % MCV 89.6 fl MCH 30.4 pg MCHC 34.0 g/dL RDW 12.7 % Platelet Count 196 10 3/cmm MPV 10.2 fL Neutrophils 4.54 10 3/uL Lymphocytes 0.6 10 3/uL Monocytes 0.8 10 3/uL Eosinophils 0.2 10 3/uL Basophils 0.1 10 3/uL Neutrophil % 73.3 % Lymphocyte % 9.5 % Monocyte % 12.7 % Eosinophil % 2.9 % Basophils % 1.3 % NRBC % 0 % Problem List: 1. Low-grade non-Hodgkin's lymphoma (follicular B-cell lymphoma). 2. Hypertension. 3. Type 2 diabetes, diet controlled. 4. GERD. 5. Obstructive sleep apnea. Problems Addressed with this Encounter and Plan: Patient with low-grade non-Hodgkin's lymphoma (follicular B-cell lymphoma) involving the small intestine, for which he underwent exploratory laparotomy/segmental small bowel resection in February 2011. He was then followed expectantly. In May 2019 he began a 4-week course of rituximab for disease progression in the abdomen/pelvis region. He tolerated the treatment well, and he appeared to have a good response. His repeat CT scans from October 2019 did show residual disease in the abdominal mesentery on the left side as well as some radha disease in the retroperitoneum and left iliac area. His restaging CT scans from 11/25/2020 showed significant disease progression including a left mesenteric mass measuring 7.8 x 7.8 x 6.8 cm. He appears to be only minimally symptomatic. However, with fairly rapid disease progression I was concerned about the possibility of transformation to high-grade lymphoma. His restaging PET/CT on 01/02/2021 did show extensive involvement in the abdomen and pelvis, including a left obturator lymph node with a relatively high SUV at 27.2. With that finding, he underwent ultrasound directed biopsy of the left obturator lymph node on 01/19/2021. Pathology was suspicious for involvement by follicular lymphoma, grade 1-2 of 3. With significant progression of low-grade lymphoma, he was recommended to proceed to 2nd line treatment with bendamustine in combination with obinutuzumab. His treatment was initially deferred pending completion of his COVID-19 vaccination. He then began cycle 1 of bendamustine/obinutuzumab on 04/05/2021. He has tolerated the treatment very well, and he does appear to be showing evidence of response with resolution of palpable left inguinal lymphadenopathy. He will proceed now with cycle 2 of bendamustine/obinutuzumab. The bendamustine dosage remains the same. The obinutuzumab will now be administered at 4-week intervals. He will have a follow-up visit in 4 weeks. Signed By: Andre Jane M.D. <<Signature on File>>
[2021-05-04] MEDS: sodium chloride 0.9% 250 ML 75 ML IV (09:41)
== END 2021-05-20 23:59 | disposition home or self-care (01) ==
LOC: ONCMED 08:45
PROVIDERS: PCP Physician Assistant Medical; Visit Provider Internal Medicine Medical Oncology
DX: Z51.11 Encounter for antineoplastic chemotherapy (principal); C82.50 Diffuse follicle center lymphoma, unspecified site; I10 Essential (primary) hypertension; E11.9 Type 2 diabetes mellitus without complications; K21.9 Gastro-esophageal reflux disease without esophagitis; G47.33 Obstructive sleep apnea (adult) (pediatric); Z79.899 Other long term (current) drug therapy
CPT/HCPCS: 36415; 80053; 85025; 96367; 96375; 96411; 96413; 96415; 99215; J1100; J1200; J7040; J7050; J9034; J9301

== ENCOUNTER 2021-06-01 07:41 | Outpatient (RCR) | payer OTHER, SELFPAY ==
[2021-05-31 09:49] LABS: Basophils # 0.1 10^3/uL (0.0-0.1); Basophils % 1.6 %; Eosinophils # 0.3 10^3/uL (0.0-0.8); Eosinophils % 3.7 %; Hematocrit 43.6 % (42.0-52.0); Hemoglobin 14.4 g/dL (11.7-16.6); Lymphocytes # 0.5 10^3/uL (0.8-4.8); Lymphocytes % 7.7 %; Mean Corpuscular Hemoglobin 29.4 pg (28.0-34.0); Mean Platelet Volume 9.8 fL (7.4-10.4); Monocytes # 1.1 10^3/uL (0.2-0.9); Neutrophils # 5.02 10^3/uL (1.8-7.7); Neutrophils % 71.4 %; Nucleated Red Blood Cells % 0 %; Platelet Count 241 10^3/cmm (130-400); Red Cell Distribution Width 12.8 % (12.1-15.1)
[2021-05-31 10:19] LABS: Alanine Aminotransferase 25 U/L (0-41); Albumin Level 3.9 g/dL (3.5-5.2); Alkaline Phosphatase 58 IU/L (40-130); Aspartate Amino Transferase 18 U/L (0-40); Blood Urea Nitrogen 10 mg/dL (8-23); Calcium 9.1 mg/dL (8.5-10.5); Carbon Dioxide 24 mmol/L (22-29); Chloride 104 mmol/L (98-107); Globulin 2.7 g/dL (1.3-4.6); Glomerular Filtration Rate 97.6 mL/min (90-130); Glucose 131 mg/dL (65-115); Lactate Dehydrogenase 167 U/L (135-225); Osmolality Calculated 289 mOsm/kg (285-295); Sodium 139 mmol/L (136-145); Total Bilirubin 0.5 mg/dL (0.15-1.2); Total Protein 6.6 g/dL (6.6-8.7)
[2021-05-31] MEDS: acetaminophen 325 mg Tablet 650 MG PO (12:05)
[2021-05-31] MEDS: sodium chloride 0.9% 250 ML 75 ML IV (12:05)
[2021-05-31] MEDS: dexamethasone 20 MG in sodium chloride 0.9% 50 ML 300 MG IV (12:05)
[2021-05-31] MEDS: sodium chloride 0.9% 500 ML 999 ML IV (12:05)
[2021-05-31] MEDS: diphenhydrAMINE 50 mg/mL SDV 1mL IVP (12:25)
--- NOTE | 2021-05-31 15:01 | ONC FU_ITS ---
[facility] Patient Note Patient: Jt Tate V Unit #: [id number]: 1955 Dictated By: Michoacano AcevedoDate of Visit: May 31, 2021 Onc MED Follow-Up/Prog Note Chief Complaint: Lymphoma. History of Present Illness: Mr Campuzano is a 65 year-old man with low-grade non-Hodgkin's lymphoma. He had presented in February 2011 with a distal small bowel obstruction. He underwent exploratory laparotomy with segmental small bowel resection. Pathology showed follicular lymphoma which was involving the entire wall of the bowel and extending into the mesentery soft tissue and lymph nodes, but the margins were reported to be free. A PET CT at that time showed mild increased activity adjacent to the surgical site in the left lower abdomen which was felt to most likely represent postoperative change. There was slightly greater than usual activity at the anticipated level of the terminal ileum. There were just a few abdominal lymph nodes which showed no abnormal hypermetabolic activity. He received no further treatment. He had been seen here intermittently from June 2012 through January 2016. During that time, there have been no significant disease progression. He then continued his further follow-up with oncologist and [place], [place]. As of May 2019 there had been significant disease progression by CT scan, most significantly in a left iliac lymph node which had gradually increased to 8 cm. At that point he did complete a 4-week course of rituximab, which he tolerated well. His most recent follow-up CT scans, from 11/18/2019, showed indeterminant right paratracheal/precarinal lymph node measuring 15 x 12 mm. There was no other adenopathy in the chest. There was a 9 mm subpleural calcified granuloma in the posterior right lower lobe and a 1.5 mm lateral left lower lobe noncalcified nodule. The abdomen/pelvis showed 2 adjacent left upper mesenteric masses, one measuring 4.13 x 3.70 cm and the other located slightly anterior and inferior measuring 2.76 x 1.49 cm. A radha mass measuring 3.22 x 3.66 cm was noted slightly more inferior in the left paramedian mesentery. Scattered retroperitoneal lymph nodes were noted including a 1.6 x 1.0 cm aortocaval node and a 1.6 x 0.9 cm para-aortic node at the level of the renal chester. There were nodes at the left iliac bifurcation, the largest measuring 1.0 x 0.9 cm. A left external iliac node measured 2.50 x 1.63 cm and a left obturator/more proximal external iliac lymph node measured 2.06 x 1.65 cm. At that point he continued on observation/expectant management. He returned here for a follow-up visit on 11/16/2020. At that time he was not overtly symptomatic. He had a restaging CT scans of the chest, abdomen, and pelvis on 11/25/2020. There was no evidence for lymphadenopathy in the chest area. There was noted to be a calcified right hilar lymph node and calcified granulomas in the right lung. A noncalcified nodule in the left lower lobe measure 2 mm. The abdomen/pelvis showed multiple enlarged periaortic and aortocaval lymph nodes ranging from 1 to 2.5 cm. There were bilateral enlarged iliac lymph nodes ranging from 1 to 5 cm, more prominent on the left. A left mesenteric mass measuring 7.8 x 7.8 x 6.8 cm was noted to encase the mesenteric vessels that appeared contiguous with surrounding small bowel loops. A second irregular mass contiguous with the adjacent small bowel within the left lower hemiabdomen measured 5 cm. There was an additional mid lower mesentery mass or enlarged lymph nodes measuring 4.5 cm. There were multilevel level lumbar discogenic and facet degenerative changes contributing to severe spinal canal stenosis at L3/4. Dr Jane reviewed those studies with the radiologist, and in comparison to the prior CT scans from 11/18/2019, there was significant disease progression. Restaging PET/CT on 01/02/2021 showed small FDG positive left supraclavicular, posterior triangle, jugulodigastric, and thoracic inlet lymph nodes, likely involved with lymphoma. A left upper quadrant mesenteric mass measured 10.1 x 7.3 cm with SUV 12.3 and a secondary mesenteric mass measured 4.1 x 3.2 cm with SUV 11.6. Other smaller mesenteric nodes were also FDG positive and consistent with recurrent lymphoma. Also noted were bilateral retroperitoneal nodes, left common iliac node, and left pelvic nodes, consistent with lymphoma. An index left obturator node measured 4.1 x 3.7 cm with SUV 27.2. A superficial left inguinal node was also FDG positive. With the relatively high SUV in the left obturator lymph node Dr Jane felt that biopsy was indicated to assess for possible transition to high-grade lymphoma. He then underwent ultrasound directed biopsy on 01/19/2021. Pathology was suspicious for involvement by follicular lymphoma, grade 1-2 of 3. With those findings he was recommended to proceed with a course of chemotherapy with bendamustine and combination with obinutuzumab. His treatment was delayed pending completion of COVID-19 vaccination. His other medical illnesses include hypertension, type II diabetes, and obstructive sleep apnea. He has been able to manage the diabetes with diet. He has history of smoking 1 pack of cigarettes daily. INTERIM HISTORY: He began cycle 1 of bendamustine/obinutuzumab on 04/05/2021. The obinutuzumab was administered in a dose escalating fashion with bendamustine on days 1 and 2 of a 28-day cycle. He had just mild symptoms of infusion reaction with the initial infusion of obinutuzumab. He tolerated it well thereafter. Mr Campuzano is here today for followup. Overall he is doing well. He denies any nausea or vomiting. He does states he has not had any fever or chills. His activity is to really good. His ECOG is 0. 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 He states he has had a little bit of nausea but not enough to even speak of . He states that he sleeps really good some months as he does not sleep at all. He has not tried anything for sleep assistance at this point. We did discuss that he has lorazepam that he could try as needed for insomnia. I did tell him that it may make him very drowsy and to make sure he does not need to be anywhere the next day to in case it causes oversedation. I did advise him to start with a half a tablet to try and then can work up to 1 tablet at bedtime if needed. He was encouraged last office not working. He denies any diarrhea or constipation. He denies any neuropathy symptoms. He states overall he feels that he is doing well. He states his whole little bit more cough however it is been unproductive. He denies any orthopnea. He denies any chest pain or palpitations. He states overall he thinks that the nodules are better . He denies any lower extremity edema. He has had no urinary symptoms or problems. He is due for cycle 3 treatment today. CHEMO TREATMENT HISTORY: 1. February 2011 distal small bowel obstruction pathology showed follicular lymphoma???he underwent exploratory lap with segmental small bowel resection no further treatment at that time. 2. June 2012 through January 2016 observation with no significant disease progression. He had follow-up from January 2016 to May 2019 in [place], [place]. 3. May [address] with a left iliac node measuring 8 cm. He completed a 4-week course of rituximab and tolerated it well. 4. November 18, 2019 follow-up CT scan revealed further disease progression with multiple lymph nodes noted that he elected to remain on observation expectant management at that time. 5. March 18, 2021 he returned here for follow-up and was not overtly symptomatic but did have follow-up CT of the chest abdomen pelvis on November 25, 2020 there is no evidence for lymphadenopathy in chest area but calcified right hilar lymph node and calcified granulomas in the right lung however there was bilateral enlarged iliac lymph nodes ranging from 1 to 5 cm more prominent on the left. He has a mesenteric mass of 7.8 x 7.8 x 6.8 cm which encased the mesenteric vessels that appeared continuous with surrounding small bowel loops. There was a second irregular mass adjacent to the small bowel within the left lower samantha abdomen measuring 5 cm. He also had mid lower mesenteric enlarged lymph nodes measuring 4.5 cm he had multilevel lumbar discogenic and facet degenerative changes contributing to severe spinal cord stenosis at L3-L4. Follow-up PET CT imaging revealed elevated SUVs and was recommended that he pursue treatment at that time however he was delayed pending COVID-19 vaccines. He finally started his first cycle of bendamustine obinutuzumab on 04/05/2021. Past Medical History: Hypertension Low-grade lymphoma Obstructive sleep apnea Type II diabetes Past Surgical History: Arthroscopic right knee surgery x 2 Tonsillectomy Covid vaccine [employer] and minerva in 2020 Cholecystectomy in 2019 Colonoscopy in 2011 Exploratory laparotomy with segmental small bowel resection in 2010 Allergies: No Known Allergies. Medications: Sildenafil Citrate Tablet Oral Family History: Mr. Tate's mother at age 73: cancer history consists of cancer (cause of ). Mr. Tate's father at age 68: Lung Cancer. Mr. Tate has 1 brother who is alive. He has 1 sister who is alive: medical history includes Lupus. Father of lung cancer at age 68. Mother in her 70s of cancer, probably [employer] origin. A sister has lupus. 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 He is an active drinker.He consumes 2 days/week. He has indicated exposure to the following products: cigarettes. He retired in June 2020. He has a history of smoking 1 pack of cigarettes daily for 40 years. He currently does not drink alcohol. Review Of Symptoms: <See Above> Vital Signs: Performed on May 31, 2021 11:19 Height - 72.00 in Weight - 224.6 lbs (HIGH) BSA - 2.24 sq.m BMI - 30.46 (HIGH) Temperature - 97.4 F (LOW) Pulse - 72 /min Respiration - 18 /min BP - 165/88 mm(hg) (HIGH) O2 Sat - 98 % Pain - 0 Fatigue - 6,0 - Fully active, able to carry on all predisease activities without restrictions. (ECOG) Physical Examination: Constitutional Alert, oriented, no acute distress. Skin pink, warm and dry. Head Normocephalic; atraumatic. Eyes Conjunctivae and sclerae are clear and without icterus. Pupils are reactive and equal. ENMT Sinuses are nontender. No oral exudates, ulcers, masses, thrush or mucositis. Oropharynx clear. Tongue normal. Neck Supple without masses or thyromegaly. No jugular venous distension. Hematologic/Lymphatic No petechiae or purpura. No tender or palpable lymph nodes in the cervical, supraclavicular, or axillary area. Respiratory Lungs are clear to auscultation without rhonchi or wheezing. Cardiovascular Regular rate and rhythm of heart without murmurs,clicks, gallops or rubs. Abdomen Non-tender, non-distended, no masses, ascites. Good bowel sounds noted in all quads. No guarding or rebound tenderness. No pulsatile masses. Back/Spine Non-tender to palpation. Extremities No visible deformities, no cyanosis, clubbing or edema. Musculoskeletal No tenderness or swelling, normal range of motion without obvious weakness. Integumentary No rashes or lesions. Neurologic No sensory or motor deficits, normal cerebellar function, normal gait. Psychiatric Alert and oriented times three. Coherent speech. Verbalizes understanding of our discussions today. Laboratory:Test performed on May 31, 2021 09:20 LDH (Total) 167 U/L Sodium 139 mmol/L Potassium 4.0 mmol/L Chloride 104 mmol/L CO2 24 mmol/L Anion Gap 15.0 BUN 10 mg/dL Creatinine 0.8 mg/dL Cr Clearance (Est) 137.2800 mL/min eGFR 97.6 mL/min Glucose 131 mg/dL Osmolality - Calculated 289 mOsm/kg Calcium 9.1 mg/dL Protein, Total 6.6 g/dL Albumin 3.9 g/dL Globulin 2.7 g/dL Bilirubin, Total 0.5 mg/dL ALT (SGPT) 25 U/L AST (SGOT) 18 U/L Alkaline Phosphatase 58 IU/L WBC 7.0 10 3/uL RBC 4.90 10 6/uL HGB 14.4 g/dL HCT 43.6 % MCV 89.0 fl MCH 29.4 pg MCHC 33.0 g/dL RDW 12.8 % Platelet Count 241 10 3/cmm MPV 9.8 fL Neutrophils 5.02 10 3/uL Lymphocytes 0.5 10 3/uL Monocytes 1.1 10 3/uL Eosinophils 0.3 10 3/uL Basophils 0.1 10 3/uL Neutrophil % 71.4 % Lymphocyte % 7.7 % Monocyte % 15.0 % Eosinophil % 3.7 % Basophils % 1.6 % NRBC % 0 % Impression: 1. Low-grade non-Hodgkin's lymphoma (follicular B-cell lymphoma). 2. Hypertension. 3. Type 2 diabetes, diet controlled. 4. GERD. 5. Obstructive sleep apnea. Plan/Problems Addressed at this Visit: Patient with low-grade non-Hodgkin's lymphoma (follicular B-cell lymphoma) involving the small intestine, for which he underwent exploratory laparotomy/segmental small bowel resection in February 2011. He was then followed expectantly. In May 2019 he began a 4-week course of rituximab for disease progression in the abdomen/pelvis region. He tolerated the treatment well, and he appeared to have a good response. His repeat CT scans from October 2019 did show residual disease in the abdominal mesentery on the left side as well as some radha disease in the retroperitoneum and left iliac area. His restaging CT scans from 11/25/2020 showed significant disease progression including a left mesenteric mass measuring 7.8 x 7.8 x 6.8 cm. He appears to be only minimally symptomatic. However, with fairly rapid disease progression I was concerned about the possibility of transformation to high-grade lymphoma. His restaging PET/CT on 01/02/2021 did show extensive involvement in the abdomen and pelvis, including a left obturator lymph node with a relatively high SUV at 27.2. With that finding, he underwent ultrasound directed biopsy of the left obturator lymph node on 01/19/2021. Pathology was suspicious for involvement by follicular lymphoma, grade 1-2 of 3. With significant progression of low-grade lymphoma, he was recommended to proceed to 2nd line treatment with bendamustine in combination with obinutuzumab. His treatment was initially deferred pending completion of his COVID-19 vaccination. He then began cycle 1 of bendamustine/obinutuzumab on 04/05/2021. He has tolerated the treatment very well, and he does appear to be showing evidence of response with resolution of palpable left inguinal lymphadenopathy. He completed cycle 2 of bendamustine/obinutuzumab on 05-04-2021. 1. Proceed with cycle 3 obinutuzumab bendamustine. This is day 1 of cycle 3. He is due for the obinutuzumab today. He will receive the bendamustine today and tomorrow. 2. Continue current antiemetics as they are are working well for him. 3. Today's labs reviewed in detail discussed with Mr. Tate and a copy was given to him. WBC 7.0, hemoglobin 14.4, platelets 241,000 ANC is 5000. Potassium 4.0 creatinine 0.8 and LFTs are normal. His LDH is 167 today. His weight is stable to 24.6. A copy of the flow sheet was given to him. 4. Continue prophylactic meds with famcyclovir and Bactrim DS. 5. We will plan to see him back again in 4 weeks with CBC CMP, LDH. 6. Mr. Tate was instructed to contact us in the interim if questions or problems arise or if his lorazepam is not helping his insomnia. 7. His last PET/CT imaging was on January 02, 2021 per [facility]. His last CT of the chest abdomen with contrast was November 25, 2020. Signed By: Michoacano Acevedo-, [facility] Andre Jane MD <<Signature on File>>
[2021-06-01] MEDS: sodium chloride 0.9% 250 ML 75 ML IV (10:41)
== END 2021-06-20 23:59 | disposition home or self-care (01) ==
LOC: ONCMED 07:41
PROVIDERS: Nurse Practitioner; PCP Physician Assistant Medical; Visit Provider Internal Medicine Medical Oncology
DX: Z51.11 Encounter for antineoplastic chemotherapy (principal); C82.00 Follicular lymphoma grade I, unspecified site; I10 Essential (primary) hypertension; E11.9 Type 2 diabetes mellitus without complications; K21.9 Gastro-esophageal reflux disease without esophagitis; G47.33 Obstructive sleep apnea (adult) (pediatric); Z79.899 Other long term (current) drug therapy
CPT/HCPCS: 80053; 83615; 85025; 96367; 96375; 96413; 96415; 96417; 99215; J1100; J1200; J7040; J7050; J9034; J9301

== ENCOUNTER 2021-06-29 08:51 | Outpatient (RCR) | payer OTHER, SELFPAY ==
[2021-06-28 09:28] LABS: Basophils # 0.1 10^3/uL (0.0-0.1); Eosinophils # 0.2 10^3/uL (0.0-0.8); Eosinophils % 3.6 %; Hematocrit 43.8 % (42.0-52.0); Hemoglobin 14.7 g/dL (11.7-16.6); Lymphocytes # 0.4 10^3/uL (0.8-4.8); Lymphocytes % 5.9 %; Mean Corpuscular HGB Conc 33.6 g/dL (30.0-36.0); Mean Corpuscular Hemoglobin 30.5 pg (28.0-34.0); Mean Corpuscular Volume 90.9 fl (80-94); Mean Platelet Volume 9.9 fL (7.4-10.4); Monocytes % 16.3 %; Neutrophils # 4.36 10^3/uL (1.8-7.7); Neutrophils % 71.5 %; Nucleated Red Blood Cells % 0 %; Platelet Count 223 10^3/cmm (130-400); Red Blood Count 4.82 10^6/uL (4.1-5.3); Red Cell Distribution Width 12.7 % (12.1-15.1); White Blood Count 6.1 10^3/uL (4.0-10.0)
[2021-06-28 12:35] LABS: Alanine Aminotransferase 24 U/L (0-41); Alkaline Phosphatase 57 IU/L (40-130); Anion Gap 14.4 (5-19); Aspartate Amino Transferase 20 U/L (0-40); Blood Urea Nitrogen 10 mg/dL (8-23); Calcium 9.2 mg/dL (8.5-10.5); Carbon Dioxide 26 mmol/L (22-29); Chloride 104 mmol/L (98-107); Globulin 2.8 g/dL (1.3-4.6); Glomerular Filtration Rate 85.2 mL/min (90-130); Glucose 89 mg/dL (65-115); Osmolality Calculated 289 mOsm/kg (285-295); Potassium 4.4 mmol/L (3.5-5.1); Sodium 140 mmol/L (136-145); Total Bilirubin 0.7 mg/dL (0.15-1.2); Total Protein 6.8 g/dL (6.6-8.7)
[2021-06-29] MEDS: sodium chloride 0.9% (100 ml) 100 ML 75 ML (10:18)
== END 2021-07-20 23:59 | disposition home or self-care (01) ==
LOC: ONCMED 08:51
PROVIDERS: PCP Physician Assistant Medical; Visit Provider Internal Medicine Medical Oncology
DX: Z51.11 Encounter for antineoplastic chemotherapy (principal); C82.88 Other types of follicular lymphoma, lymph nodes of multiple sites; I10 Essential (primary) hypertension; G47.33 Obstructive sleep apnea (adult) (pediatric); Z79.899 Other long term (current) drug therapy
CPT/HCPCS: 80053; 85025; 96367; 96375; 96409; 96413; 96415; 96417; J9034

== ENCOUNTER → 2021-07-26 11:33 | Outpatient (BNVA) | payer OTHER, SELFPAY | PROVIDERS: PCP Physician Assistant Medical; Visit Provider Internal Medicine Medical Oncology | DX: C82.88 Other types of follicular lymphoma, lymph nodes of multiple sites (principal); C82.89 Other types of follicular lymphoma, extranodal and solid organ sites; G47.33 Obstructive sleep apnea (adult) (pediatric); I10 Essential (primary) hypertension; N52.9 Male erectile dysfunction, unspecified | CPT/HCPCS: 80053; 83615; 85025 ==

== ENCOUNTER 2021-07-27 06:28 | Outpatient (RCR) | payer OTHER, SELFPAY ==
[2021-07-27 10:09] LABS: Estmated Average Glucose 128; Hemoglobin A1C 6.1 % (4.0-6.0)
--- NOTE | 2021-07-28 07:44 | ONC FU_ITS ---
Dr. Jane Patient Follow-Up Note Patient: Jt Tate V Unit #: [id number]: 1955 Dicatated By: Andre Jane M.D.Date of Visit:Jul 27, 2021 Onc Med Follow-up/Prog Note Chief Complaint: Lymphoma. History of Present Illness: This is a 65 year-old man with low-grade non-Hodgkin's lymphoma. He had presented in February 2011 with a distal small bowel obstruction. He underwent exploratory laparotomy with segmental small bowel resection. Pathology showed follicular lymphoma which was involving the entire wall of the bowel and extending into the mesentery soft tissue and lymph nodes, but the margins were reported to be free. A PET CT at that time showed mild increased activity adjacent to the surgical site in the left lower abdomen which was felt to most likely represent postoperative change. There was slightly greater than usual activity at the anticipated level of the terminal ileum. There were just a few abdominal lymph nodes which showed no abnormal hypermetabolic activity. He received no further treatment. He had been seen here intermittently from June 2012 through January 2016. During that time, there have been no significant disease progression. He then continued his further follow-up with oncologist and [place], [place]. As of May 2019 there had been significant disease progression by CT scan, most significantly in a left iliac lymph node which had gradually increased to 8 cm. At that point he did complete a 4-week course of rituximab, which he tolerated well. His most recent follow-up CT scans, from 11/18/2019, showed indeterminant right paratracheal/precarinal lymph node measuring 15 x 12 mm. There was no other adenopathy in the chest. There was a 9 mm subpleural calcified granuloma in the posterior right lower lobe and a 1.5 mm lateral left lower lobe noncalcified nodule. The abdomen/pelvis showed 2 adjacent left upper mesenteric masses, one measuring 4.13 x 3.70 cm and the other located slightly anterior and inferior measuring 2.76 x 1.49 cm. A radha mass measuring 3.22 x 3.66 cm was noted slightly more inferior in the left paramedian mesentery. Scattered retroperitoneal lymph nodes were noted including a 1.6 x 1.0 cm aortocaval node and a 1.6 x 0.9 cm para-aortic node at the level of the renal chester. There were nodes at the left iliac bifurcation, the largest measuring 1.0 x 0.9 cm. A left external iliac node measured 2.50 x 1.63 cm and a left obturator/more proximal external iliac lymph node measured 2.06 x 1.65 cm. At that point he continued on observation/expectant management. He returned here for a follow-up visit on 11/16/2020. At that time he was not overtly symptomatic. He had a restaging CT scans of the chest, abdomen, and pelvis on 11/25/2020. There was no evidence for lymphadenopathy in the chest area. There was noted to be a calcified right hilar lymph node and calcified granulomas in the right lung. A noncalcified nodule in the left lower lobe measure 2 mm. The abdomen/pelvis showed multiple enlarged periaortic and aortocaval lymph nodes ranging from 1 to 2.5 cm. There were bilateral enlarged iliac lymph nodes ranging from 1 to 5 cm, more prominent on the left. A left mesenteric mass measuring 7.8 x 7.8 x 6.8 cm was noted to encase the mesenteric vessels that appeared contiguous with surrounding small bowel loops. A second irregular mass contiguous with the adjacent small bowel within the left lower hemiabdomen measured 5 cm. There was an additional mid lower mesentery mass or enlarged lymph nodes measuring 4.5 cm. There were multilevel level lumbar discogenic and facet degenerative changes contributing to severe spinal canal stenosis at L3/4. I reviewed those studies with the radiologist, and in comparison to the prior CT scans from 11/18/2019, there was significant disease progression. Restaging PET/CT on 01/02/2021 showed small FDG positive left supraclavicular, posterior triangle, jugulodigastric, and thoracic inlet lymph nodes, likely involved with lymphoma. A left upper quadrant mesenteric mass measured 10.1 x 7.3 cm with SUV 12.3 and a secondary mesenteric mass measured 4.1 x 3.2 cm with SUV 11.6. Other smaller mesenteric nodes were also FDG positive and consistent with recurrent lymphoma. Also noted were bilateral retroperitoneal nodes, left common iliac node, and left pelvic nodes, consistent with lymphoma. An index left obturator node measured 4.1 x 3.7 cm with SUV 27.2. A superficial left inguinal node was also FDG positive. With the relatively high SUV in the left obturator lymph node I felt that biopsy was indicated to assess for possible transition to high-grade lymphoma. He then underwent ultrasound directed biopsy on 01/19/2021. Pathology was suspicious for involvement by follicular lymphoma, grade 1-2 of 3. With those findings he was recommended to proceed with a course of chemotherapy with bendamustine and combination with obinutuzumab. His treatment was delayed pending completion of COVID-19 vaccination. His other medical illnesses include hypertension, type II diabetes, and obstructive sleep apnea. He has been able to manage the diabetes with diet. He has history of smoking 1 pack of cigarettes daily. INTERIM HISTORY: He began cycle 1 of bendamustine/obinutuzumab on 04/05/2021. The obinutuzumab was administered in a dose escalating fashion with bendamustine on days 1 and 2 of a 28-day cycle. He had just mild symptoms of infusion reaction with the initial infusion of obinutuzumab. He tolerated it well thereafter. He then continued with cycle 2 on 05/03/2021, with cycle 3 on 05/31/2021, and was cycle 4 on 06/28/2021. Restaging CT scan of the chest on 07/23/2021 showed no hilar, mediastinal, axillary or supraclavicular adenopathy. The abdomen/pelvis CT showed changes of distal pancreatectomy. The previously noted mesenteric mass decreased in size to 4.7 x 4.3 cm compared to 6.7 x 7.7 cm. Adjacent mesenteric fat stranding was noted to persist. The smaller mass just to the right of the midline near the level of the umbilicus had decreased from 4.4 cm to 2.9 x 2.2 cm. Also noted was diminished periaortic and pericaval retroperitoneal adenopathy and significantly diminished left iliac chain adenopathy. There was no evidence of new or progressed adenopathy. He is seen for a follow-up visit. He says he has been feeling okay, though he says his energy is lousy. He does normal activities, but less of them. His ECOG score is 1. He has good appetite. He has not had fever or night sweats. He says that last week was pretty rough, in part due to dental infection, for which he has been on antibiotic therapy with amoxicillin. He also developed chest congestion and cough. He has been bringing up some brownish sputum with it. His breathing has been a little worse. He sometimes has chest pain with more strenuous activity. He has noticed a significant decrease in his visual acuity since he started this treatment. He has not yet seen an eye doctor. He had some nausea and diarrhea after his CT scans, but that has resolved. He has no other GI or complaints. He has some joint pain, which is the same. He has had some headaches. He does not complain of dizziness. He has no numbness/paresthesia or other focal neurologic symptoms. Medications: Sildenafil Citrate Tablet Oral Allergies: No Known Allergies. Vital Signs: Performed on Jul 27, 2021 08:23 Height - 72.00 in Weight - 226.4 lbs (HIGH) BSA - 2.25 sq.m BMI - 30.71 (HIGH) Temperature - 97.0 F (LOW) Pulse - 79 /min Respiration - 18 /min BP - 164/88 mm(hg) (HIGH) O2 Sat - 99 % Pain - 0 Fatigue - 5 Physical Examination: Constitutional - He looks good generally, Eyes - Sclerae nonicteric. Conjunctivae clear, ENMT - No lesions noted in the oral cavity, Hematologic/Lymphatic - No cervical, clavicular, or axillary adenopathy noted, Respiratory - Lungs are clear with some decrease in air movement bilaterally, Cardiovascular - Heart rhythm is regular. There is a II/ systolic murmur. There is no gallop or rub noted, Abdomen - Soft. Liver and spleen are not enlarged. There is no abdominal mass or ascites noted. The left inguinal adenopathy has resolved, Extremities - No edema, Neurologic - No focal neurologic deficits noted. Lab/Imaging: CBC shows hemoglobin 14.4 g, white blood cell count 4700, and platelet count 209,000. Comprehensive metabolic profile shows normal renal function with BUN 9 and creatinine 0.8 mg/dL. Bilirubin and liver enzymes are normal. LDH is normal 164 U/L. Hemoglobin A1c is 6.1%. Problem List: 1. Low-grade non-Hodgkin's lymphoma (follicular B-cell lymphoma). 2. Hypertension. 3. Type 2 diabetes, diet controlled. 4. GERD. 5. Obstructive sleep apnea. Problems Addressed with this Encounter and Plan: Patient with low-grade non-Hodgkin's lymphoma (follicular B-cell lymphoma) involving the small intestine, for which he underwent exploratory laparotomy/segmental small bowel resection in February 2011. He was then followed expectantly. In May 2019 he began a 4-week course of rituximab for disease progression in the abdomen/pelvis region. He tolerated the treatment well, and he appeared to have a good response. His repeat CT scans from October 2019 did show residual disease in the abdominal mesentery on the left side as well as some radha disease in the retroperitoneum and left iliac area. His restaging CT scans from 11/25/2020 showed significant disease progression including a left mesenteric mass measuring 7.8 x 7.8 x 6.8 cm. He appears to be only minimally symptomatic. However, with fairly rapid disease progression I was concerned about the possibility of transformation to high-grade lymphoma. His restaging PET/CT on 01/02/2021 did show extensive involvement in the abdomen and pelvis, including a left obturator lymph node with a relatively high SUV at 27.2. With that finding, he underwent ultrasound directed biopsy of the left obturator lymph node on 01/19/2021. Pathology was suspicious for involvement by follicular lymphoma, grade 1-2 of 3. With significant progression of low-grade lymphoma, he was recommended to proceed to 2nd line treatment with bendamustine in combination with obinutuzumab. His treatment was initially deferred pending completion of his COVID-19 vaccination. He then began cycle 1 of bendamustine/obinutuzumab on 04/05/2021. He has tolerated the treatment very well, and he does appear to be showing evidence of response with resolution of palpable left inguinal lymphadenopathy. He will proceed now with cycle 2 of bendamustine/obinutuzumab. The bendamustine dosage remains the same. The obinutuzumab will now be administered at 4-week intervals. He will have a follow-up visit in 4 weeks. He had a mild infusion reaction with the initial dose of obinutuzumab, but he tolerated it well thereafter. He then continued his treatments at 4-week intervals. He began cycle 4 on 06/28/2021. His restaging CT scans on 07/23/2021 showed significant improvement, but there were residual mesenteric masses measuring 4.7 x 4.3 cm and 2.9 x 2.2 cm. At this point he still has significant residual fatigue following the chemotherapy. He also has reported a significant decrease in visual acuity, though it is uncertain to what extent the latter may be treatment related. I discussed options for further management, one of which would be to complete 2 additional cycles of chemotherapy deceiving get some additional shrinkage in the residual disease. Another option is to proceed now to maintenance therapy with obinutuzumab infusions at 2-month intervals, but with some associated risk of immunosuppression. The third option, which is his preference, is to stop treatment and just follow with expectant management. As he is quite adamant that he does not want any additional treatment now, he will be scheduled for a follow-up visit in 3 months, and I will plan to recheck CT scans at a 6-month interval. In the meantime, he is strongly encouraged to see an nuclear plant construction worker or an psychiatry resident to evaluate his visual changes. Signed By: Andre Jane M.D. <<Signature on File>>
== END 2021-08-20 23:59 | disposition home or self-care (01) ==
LOC: ONCMED 06:28
PROVIDERS: PCP Physician Assistant Medical; Visit Provider Internal Medicine Medical Oncology
DX: Z08 Encounter for follow-up examination after completed treatment for malignant neoplasm (principal); Z85.72 Personal history of non-Hodgkin lymphomas; I10 Essential (primary) hypertension; E11.9 Type 2 diabetes mellitus without complications; K21.9 Gastro-esophageal reflux disease without esophagitis; G47.33 Obstructive sleep apnea (adult) (pediatric); Z92.25 Personal history of immunosuppression therapy; Z92.21 Personal history of antineoplastic chemotherapy
CPT/HCPCS: 83036; 99214

== ENCOUNTER 2021-09-06 11:31 | Emergency (ER) | payer SELFPAY ==
[2021-09-06 11:52] VITALS: BP 152/80; PULSE 81; RESP 16; TEMP 37.2; O2SAT 98
--- NOTE | 2021-09-06 12:06 | XR_ITS ---
WS: [id number] Exam: XR chest 1V portable [id number] Date/Time of Exam: 09/06/2021 12:06 PM Reason For Exam: cough Comparison 08/10/2015. Findings: The lungs are clear and fully expanded. Costophrenic angles are sharp. No infiltrates. Bronchovascula r relief appears normal. Cardiac silhouette is unremarkable. Bony elements are intact. XR/XR chest 1V portable [id number] IMPRESSION: Unremarkable chest radiograph.
--- NOTE | 2021-09-06 12:45 | ED_ITS ---
Documented by User: [email or web address] Balderas 09/07/21 07:15 HPI - COVID General: Chief Complaint: COVID symptoms Stated Complaint: Flu like symptoms Time Seen by Provider: 09/06/21 12:43 Triage information: Has fever, cough or shortness of breath . No known COVID + exposure last 14 days History of Present Illness: HPI Narrative: Patient presents with COVID-like symptoms. Was seen last week Dr. Jane and placed on antibiotics. Patient states that is having drainage, cough, muscle aches, nasal congestion and headache sometimes symptom onset was more than a week ago. Patient has completed a round of antibiotics MD complaint: has COVID symptoms COVID 19 common symptoms: positive non-productive cough, body aches, headache(s), nasal congestion and diarrhea Onset (ago): day(s) Severity: mild COVID Results: No Data to Display Review of Systems Const: Reports: body aches ENMT: Reports: nasal congestion Resp: Reports: non-productive cough GI: Reports: diarrhea Neuro: Reports: headache(s) Physical Exam Narrative: EXAM NARRATIVE: Appears stable- does not have any shortness of breath. Patient appears well Const: COMMON NORMALS: no acute distress, average body habitus and patient oriented x3 HENMT: COMMON NORMALS: normocephalic HEAD & SCALP: normal to inspection and normocephalic FACE & SINUS: normal facial exam Eye: COMMON NORMALS: conjunctivae normal GENERAL EYE: appearance normal, both eyes and all related structures CONJUNCTIVA: Yes conjunctivae normal Neck/C-Spine: COMMON NORMALS: no JVD Chest: COMMONS NORMALS: normal inspection of the chest Resp: COMMON NORMALS: normal respiratory effort EFFORT & INSPECTION: Yes able to speak in complete sentences Cardio: COMMON NORMALS: no JVD GI: INSPECTION: Yes normal to inspection Extremity: COMMON NORMALS: normal to inspection and full ROM Neuro: COMMON NORMALS: patient oriented x3 Course Vital Signs: Vital signs: Vital Signs Temperature 99 F 09/06/21 11:52 Pulse Rate 81 09/06/21 11:52 Respiratory Rate 16 09/06/21 11:52 Blood Pressure 152/80 09/06/21 11:52 Pulse Oximetry 98 09/06/21 11:52 MDM - COVID MDM Narrative: Medical decision making narrative: Patient sent here by Dr. Jane's office. Patient just finished antibiotics as per his provider. Patient started with COVID symptoms but more than a week ago. Was tested for flu but not COVID. Flu is negative. Patient finished chemotherapy in July. Patient denies fevers does have other COVID symptoms consistent with recent omicron variant. Patient sent here for chest x-ray and COVID test. Chest x-ray was clear -COVID swab was ordered and patient will be notified results later patient was asked to quarantine until he finds out test results. I visit with the patient and his multiple times and reassessed patient frequently .patient chose to leave the waiting room and not wait for test to be done due to extended wait. Patient was encouraged to go down a local clinic and get testing done. Patient encouraged to follow-up primary care provider tomorrow. Also encouraged to come to the ER if any worsening symptoms. COVID Results: No Data to Display Discharge Plan Discharge Patient Disposition: Home Clinical Impression: Suspected severe acute respiratory syndrome coronavirus 2 (SARS-CoV-2) infection Condition: Stable Discharge Orders: Discharge ED (Routine); Ordered 09/06/21 Ordered By: Michael Bee Referrals: Rohan Shin [Primary Care Provider] - Discharge Diet: Usual diet Discharge Activity: Increase activity as tolerated Patient Instructions: COVID-19 (Coronavirus Disease 2019) (ED) Activity Restrictions/Additional Instructions: Quarantine at home. Hospital will contact you with lab results. Follow-up Dr. Jane as needed. Coding Level of Care Code ED Nursing Specialist for [facility] Fwd Exam Comprehensive Documented by User: Alejandro Faust DO 09/08/21 05:32 HPI - COVID General: Chief Complaint: COVID symptoms Stated Complaint: Flu like symptoms Time Seen by Provider: 09/06/21 12:43 COVID Results: No Data to Display Course Vital Signs: Vital signs: Vital Signs Temperature 99 F 09/06/21 11:52 Pulse Rate 81 09/06/21 11:52 Respiratory Rate 16 09/06/21 11:52 Blood Pressure 152/80 09/06/21 11:52 Pulse Oximetry 98 09/06/21 11:52 MDM - COVID MDM Narrative: Medical decision making narrative: Chart reviewed and patient discussed with midlevel. Agree with assessment and plan. COVID Results: No Data to Display Discharge Plan Discharge Patient Disposition: Home Clinical Impression: Suspected severe acute respiratory syndrome coronavirus 2 (SARS-CoV-2) infection Condition: Stable Discharge Orders: Discharge ED (Routine); Ordered 09/06/21 Ordered By: Michael Bee Referrals: Rohan Shin [Primary Care Provider] - Discharge Diet: Usual diet Discharge Activity: Increase activity as tolerated Patient Instructions: COVID-19 (Coronavirus Disease 2019) (ED) Activity Restrictions/Additional Instructions: Quarantine at home. Hospital will contact you with lab results. Follow-up Dr. Jane as needed. Coding Level of Care Code ED Nursing Specialist for [facility] Exam Comprehensive
== END 2021-09-06 15:20 | disposition home or self-care (01) ==
PROVIDERS: Emergency Provider Nurse Practitioner Family; PCP Physician Assistant Medical
DX: Z20.822 Contact with and (suspected) exposure to COVID-19 (principal)
CPT/HCPCS: 71045

== ENCOUNTER 2021-10-28 14:29 | Outpatient (CLI) | payer OTHER, SELFPAY ==
[2021-10-28 15:45] LABS: Erythrocyte Sedimentation Rate 7 mm/hr (0-10)
[2021-10-28 16:19] LABS: C Reactive Protein 15.3 mg/L (0.0-4.9); Thyroid Stimulating Hormone 3.38 uIU/mL (0.27-4.20); Vitamin B12 623 pg/mL (232-1245)
[2021-10-28 16:38] LABS: Hepatitis A Antibody IgM Non-Reactive (Nonreactive); Hepatitis B Core AB, Total Non-Reactive (Nonreactive); Hepatitis B Surface AB 26.5 (11.5-1000); Hepatitis B Surface Antigen Non-Reactive (Nonreactive); Hepatitis C Virus Antibody Non-Reactive (Nonreactive)
--- NOTE | 2021-11-01 07:35 | ONC FU_ITS ---
Dr. Jane Patient Follow-Up Note Patient: Jt Tate V Unit #: [id number]: 1955 Dicatated By: Andre Jane M.D.Date of Visit:Oct 28, 2021 Onc Med Follow-up/Prog Note Chief Complaint: Lymphoma. History of Present Illness: This is a 65 year-old man with low-grade non-Hodgkin's lymphoma. He had presented in February 2011 with a distal small bowel obstruction. He underwent exploratory laparotomy with segmental small bowel resection. Pathology showed follicular lymphoma which was involving the entire wall of the bowel and extending into the mesentery soft tissue and lymph nodes, but the margins were reported to be free. A PET CT at that time showed mild increased activity adjacent to the surgical site in the left lower abdomen which was felt to most likely represent postoperative change. There was slightly greater than usual activity at the anticipated level of the terminal ileum. There were just a few abdominal lymph nodes which showed no abnormal hypermetabolic activity. He received no further treatment. He had been seen here intermittently from June 2012 through January 2016. During that time, there have been no significant disease progression. He then continued his further follow-up with oncologist and [place], [place]. As of May 2019 there had been significant disease progression by CT scan, most significantly in a left iliac lymph node which had gradually increased to 8 cm. At that point he did complete a 4-week course of rituximab, which he tolerated well. His most recent follow-up CT scans, from 11/18/2019, showed indeterminant right paratracheal/precarinal lymph node measuring 15 x 12 mm. There was no other adenopathy in the chest. There was a 9 mm subpleural calcified granuloma in the posterior right lower lobe and a 1.5 mm lateral left lower lobe noncalcified nodule. The abdomen/pelvis showed 2 adjacent left upper mesenteric masses, one measuring 4.13 x 3.70 cm and the other located slightly anterior and inferior measuring 2.76 x 1.49 cm. A radha mass measuring 3.22 x 3.66 cm was noted slightly more inferior in the left paramedian mesentery. Scattered retroperitoneal lymph nodes were noted including a 1.6 x 1.0 cm aortocaval node and a 1.6 x 0.9 cm para-aortic node at the level of the renal chester. There were nodes at the left iliac bifurcation, the largest measuring 1.0 x 0.9 cm. A left external iliac node measured 2.50 x 1.63 cm and a left obturator/more proximal external iliac lymph node measured 2.06 x 1.65 cm. At that point he continued on observation/expectant management. He returned here for a follow-up visit on 11/16/2020. At that time he was not overtly symptomatic. He had a restaging CT scans of the chest, abdomen, and pelvis on 11/25/2020. There was no evidence for lymphadenopathy in the chest area. There was noted to be a calcified right hilar lymph node and calcified granulomas in the right lung. A noncalcified nodule in the left lower lobe measure 2 mm. The abdomen/pelvis showed multiple enlarged periaortic and aortocaval lymph nodes ranging from 1 to 2.5 cm. There were bilateral enlarged iliac lymph nodes ranging from 1 to 5 cm, more prominent on the left. A left mesenteric mass measuring 7.8 x 7.8 x 6.8 cm was noted to encase the mesenteric vessels that appeared contiguous with surrounding small bowel loops. A second irregular mass contiguous with the adjacent small bowel within the left lower hemiabdomen measured 5 cm. There was an additional mid lower mesentery mass or enlarged lymph nodes measuring 4.5 cm. There were multilevel level lumbar discogenic and facet degenerative changes contributing to severe spinal canal stenosis at L3/4. I reviewed those studies with the radiologist, and in comparison to the prior CT scans from 11/18/2019, there was significant disease progression. Restaging PET/CT on 01/02/2021 showed small FDG positive left supraclavicular, posterior triangle, jugulodigastric, and thoracic inlet lymph nodes, likely involved with lymphoma. A left upper quadrant mesenteric mass measured 10.1 x 7.3 cm with SUV 12.3 and a secondary mesenteric mass measured 4.1 x 3.2 cm with SUV 11.6. Other smaller mesenteric nodes were also FDG positive and consistent with recurrent lymphoma. Also noted were bilateral retroperitoneal nodes, left common iliac node, and left pelvic nodes, consistent with lymphoma. An index left obturator node measured 4.1 x 3.7 cm with SUV 27.2. A superficial left inguinal node was also FDG positive. With the relatively high SUV in the left obturator lymph node I felt that biopsy was indicated to assess for possible transition to high-grade lymphoma. He then underwent ultrasound directed biopsy on 01/19/2021. Pathology was suspicious for involvement by follicular lymphoma, grade 1-2 of 3. With those findings he was recommended to proceed with a course of chemotherapy with bendamustine and combination with obinutuzumab. His treatment was delayed pending completion of COVID-19 vaccination. His other medical illnesses include hypertension, type II diabetes, and obstructive sleep apnea. He has been able to manage the diabetes with diet. He has history of smoking 1 pack of cigarettes daily. INTERIM HISTORY: He began cycle 1 of bendamustine/obinutuzumab on 04/05/2021. The obinutuzumab was administered in a dose escalating fashion with bendamustine on days 1 and 2 of a 28-day cycle. He had just mild symptoms of infusion reaction with the initial infusion of obinutuzumab. He tolerated it well thereafter. He then continued with cycle 2 on 05/03/2021, with cycle 3 on 05/31/2021, and was cycle 4 on 06/28/2021. Restaging CT scan of the chest on 07/23/2021 showed no hilar, mediastinal, axillary or supraclavicular adenopathy. The abdomen/pelvis CT showed changes of distal pancreatectomy. The previously noted mesenteric mass decreased in size to 4.7 x 4.3 cm compared to 6.7 x 7.7 cm. Adjacent mesenteric fat stranding was noted to persist. The smaller mass just to the right of the midline near the level of the umbilicus had decreased from 4.4 cm to 2.9 x 2.2 cm. Also noted was diminished periaortic and pericaval retroperitoneal adenopathy and significantly diminished left iliac chain adenopathy. There was no evidence of new or progressed adenopathy. He was seen for a follow-up visit on 07/27/2021. At that point he was still having significant fatigue. He opted not to have maintenance obinutuzumab. He is seen for a follow-up visit. He continues to complain that he feels wore out. He describes his last 2 weeks as pitiful. He is still able to do some light work. ECOG score is 1. His appetite has diminished. Weight is down just a couple of pounds. He does not have fever. He occasionally has sweating at night. He mostly feels cold. He had developed an itchy rash on his back, but he says it is calming down now. He complains that he has an infected tooth. He has some nonproductive cough, mainly in the evening. He is short of breath with activity. He does not complain of chest pain. Few weeks ago he developed pain on his right side which lasted for about a week. He has had no other associated GI or complaints. He complains that his back hurts a lot. He does not complain of headache or dizziness, and he has no focal neurologic symptoms. Medications: He is currently not on any prescription medication. Allergies: No Known Allergies. Vital Signs: Performed on Oct 28, 2021 14:55 Height - 72.00 in Weight - 223.4 lbs (LOW) BSA - 2.23 sq.m BMI - 30.30 (HIGH) Temperature - 99.2 F (HIGH) Pulse - 89 /min Respiration - 16 /min BP - 161/93 mm(hg) (HIGH) O2 Sat - 97 % Pain - 5 Fatigue - 5 Physical Examination: Constitutional - He looks pretty good generally, Eyes - Sclerae nonicteric. Conjunctivae clear, ENMT - No lesions noted in the oral cavity, Hematologic/Lymphatic - No cervical, clavicular, or axillary adenopathy noted, Respiratory - Lungs are clear with some decrease in air movement bilaterally, Cardiovascular - Heart rhythm is regular. There is a III/ systolic murmur. There is no gallop or rub noted, Abdomen - Mildly distended but soft. Liver and spleen are not enlarged. There is no abdominal mass or ascites noted and there is no inguinal adenopathy, Extremities - No edema, Neurologic - No focal neurologic deficits noted. Lab/Imaging: CBC shows hemoglobin 14.4 g, white blood cell count 4700, and platelet count 209,000. Sed rate is normal at 7 mm/h. CRP is mildly elevated at 15.3 mg/L. Comprehensive metabolic profile shows normal renal function with BUN 9 and creatinine 0.8 mg/dL. The bilirubin and liver enzymes are normal. LDH is normal at 164 U/L. TSH is normal at 3.38 IUl/mL. Problem List: 1. Low-grade non-Hodgkin's lymphoma (follicular B-cell lymphoma). 2. Hypertension. 3. Type 2 diabetes, diet controlled. 4. GERD. 5. Obstructive sleep apnea. Problems Addressed with this Encounter and Plan: Patient with low-grade non-Hodgkin's lymphoma (follicular B-cell lymphoma) involving the small intestine, for which he underwent exploratory laparotomy/segmental small bowel resection in February 2011. He was then followed expectantly. In May 2019 he began a 4-week course of rituximab for disease progression in the abdomen/pelvis region. He tolerated the treatment well, and he appeared to have a good response. His repeat CT scans from October 2019 did show residual disease in the abdominal mesentery on the left side as well as some radha disease in the retroperitoneum and left iliac area. His restaging CT scans from 11/25/2020 showed significant disease progression including a left mesenteric mass measuring 7.8 x 7.8 x 6.8 cm. He appears to be only minimally symptomatic. However, with fairly rapid disease progression I was concerned about the possibility of transformation to high-grade lymphoma. His restaging PET/CT on 01/02/2021 did show extensive involvement in the abdomen and pelvis, including a left obturator lymph node with a relatively high SUV at 27.2. With that finding, he underwent ultrasound directed biopsy of the left obturator lymph node on 01/19/2021. Pathology was suspicious for involvement by follicular lymphoma, grade 1-2 of 3. With significant progression of low-grade lymphoma, he was recommended to proceed to 2nd line treatment with bendamustine in combination with obinutuzumab. His treatment was initially deferred pending completion of his COVID-19 vaccination. He then began cycle 1 of bendamustine/obinutuzumab on 04/05/2021. He had a mild infusion reaction with the initial dose of obinutuzumab, but he tolerated it well thereafter. He then continued his treatments at 4-week intervals. He began cycle 4 on 06/28/2021. His restaging CT scans on 07/23/2021 showed significant improvement, but there were residual mesenteric masses measuring 4.7 x 4.3 cm and 2.9 x 2.2 cm. At that point he still had significant residual fatigue following the chemotherapy. He also has reported a significant decrease in visual acuity. He opted not to take adjuvant obinutuzumab. Since then he has continued to complain of profound fatigue. He recently developed an itchy skin eruption on his back, though it does appear to be resolving. The cause for this is uncertain, but I would ordinarily not expect this to be treatment related at this interval from completion of his chemotherapy. As such, I will schedule him for restaging CT scans, I also want to check an echocardiogram. In the meantime, he will be given a prescription for Augmentin for his infected tooth. Signed By: Andre Jane M.D. <<Signature on File>>
== END 2021-10-28 14:30 | disposition home or self-care (01) ==
PROVIDERS: Visit Provider Internal Medicine Medical Oncology
DX: C82.88 Other types of follicular lymphoma, lymph nodes of multiple sites (principal); I10 Essential (primary) hypertension; E11.9 Type 2 diabetes mellitus without complications; K21.9 Gastro-esophageal reflux disease without esophagitis; G47.33 Obstructive sleep apnea (adult) (pediatric); R53.83 Other fatigue
CPT/HCPCS: 36415; 82607; 84443; 85651; 86140; 86705; 86706; 86709; 86803; 87340; 99214

== ENCOUNTER 2022-01-25 07:53 | Emergency (ER) | payer OTHER, SELFPAY ==
[2022-01-25 08:22] VITALS: BP 164/91; PULSE 89; RESP 18; TEMP 37.1; O2SAT 96; BMI 27.8
[2022-01-25 08:26] VITALS: BP 158/90; PULSE 89; RESP 18; TEMP 37.2; O2SAT 95
--- NOTE | 2022-01-25 08:26 | XRR_ITS ---
PROCEDURE INFORMATION: Exam: XR Chest Exam date and time: 01/25/2022 8:35 AM Age: 66 years old Clinical indication: Cough and fever and shortness of breath; Prior surgery; Surgery type: Gallbladder, intestines; Additional info: Fever, cough TECHNIQUE: Imaging protocol: XR of the chest. Views: 1 view. COMPARISON: CT chest abd pel w con* 11/18/2021 8:34 AM FINDINGS: Lungs: Unremarkable. No consolidation. Pleural spaces: Unremarkable. No pleural effusion. No pneumothorax. Heart/Mediastinum: Unremarkable. No cardiomegaly. Bones/joints: Degenerative change of the spine. XR/XR chest 1V portable [id number] IMPRESSION: No acute findings.
--- NOTE | 2022-01-25 08:51 | W.ED.GENADLT ---
Documented by User: CAITY Hagan 01/25/22 11:03 HPI - General Adult General: Chief complaint: Fever Stated complaint: fever x 1 week, cough Time Seen by Provider: 01/25/22 08:03 Source: patient and family () Mode of arrival: ambulatory Limitations: no limitations History of Present Illness: Patient is a nice 66-year-old male with a history of non-Hodgkin's lymphoma here along with his for concerns of fatigue, fevers, shortness of breath, cough/congestion, and diarrhea. Patient has underwent chemotherapy for his lymphoma with bendamustine in Mar-Jul 2021. Following that he did have restaging CT which showed significant improvement but still had a few residual mesenteric masses. Patient follows up with Dr. Jane for this. He is not undergoing any form of chemo/radiation. His next follow up appointment with Dr. Jane is scheduled for 02/16. Patient states many of his complaints today have been present over the past 3 months or so. He states he continually runs low-grade fevers (roughly 100.0) but states last night it was higher than normal at 102. Patient states he continually feels short of breath worse with any form of exertion. He states he will cough up some brown-colored sputum in the mornings but does feel sputum production increases during the day. He is an every day smoker. Patient states he is very fatigued requiring him to nap frequently throughout the day. He is reporting continued weight loss and a decreased appetite. Patient states diarrhea has been an intermittent chronic issue for several months. He is not complaining of bloody or melanotic stools. He does not complain of pain anywhere currently. Onset (ago): month(s) Associated symptoms: Reports dyspnea; Deny chest pain, headache(s), nausea, rash, palpitations, syncope or vomiting Review of Systems Const: Reports: fever(s), chills, change in appetite, change in weight and fatigue; Denies: body aches Eyes: Denies: change in vision ENMT: Denies: throat pain, odynophagia, ear or mastoid pain, nasal discharge, nasal congestion, post nasal drip or sinus pain Card: Reports: dyspnea on exertion; Denies: chest pain, palpitations, irregular heart rhythm, edema, swelling of feet/ankles, lightheadedness, syncope, pre-syncope, orthopnea, leg pain with exertion or acrocyanosis Resp: Reports: dyspnea, productive cough and chest congestion; Denies: wheezing, stridor or pain on inspiration GI: Reports: diarrhea; Denies: abdominal pain, nausea, vomiting, hematochezia or melena : Denies: flank pain, dysuria or hematuria Musc: Denies: neck pain, back pain, extremity pain or joint pain Skin/Breast: Denies: rash Neuro: Denies: headache(s), numbness in extremities, weakness in extremities, sensory changes or dizziness PFSH ED PFSH: Social History Smoking and tobacco status: current every day smoker Physical Exam Const: COMMON NORMALS: no acute distress, average body habitus, patient oriented x3, no limitations, healthy appearing, alert and well nourished HENMT: COMMON NORMALS: normocephalic and atraumatic HEAD & SCALP: normocephalic and atraumatic Chest: COMMONS NORMALS: normal inspection of the chest and normal palpation of entire chest wall Resp: COMMON NORMALS: normal respiratory effort and clear to auscultation bilaterally AUSCULTATION: clear to auscultation bilaterally Cardio: COMMON NORMALS: regular rate and regular rhythm RATE: regular rate RHYTHM: regular rhythm GI: COMMON NORMALS: Normal to inspection, nondistended, normoactive bowel sounds present, Soft to palpation and non-tender PALPATION: Yes Soft to palpation Extremity: COMMON NORMALS: normal to inspection, capillary refill normal, no joint enlargement, no clubbing, cyanosis or edema, no calf tenderness and no pedal edema GENERAL: Yes normal exam except as noted Neuro: GHISLAINE COMA SCALE: document GCS findings Ghislaine coma scale eye opening: Spontaneous Ghislaine coma scale verbal response: Orientated Ghislaine coma scale motor response: Obey commands Ghislaine coma scale total score: 15 COMMON NORMALS: patient oriented x3, moves all extremities, no focal motor deficits, no sensory deficits noted and gait normal SENSORIUM/ORIENTATION: Yes alert Skin: COMMON NORMALS: no rashes or lesions noted GENERAL SKIN EXAM: no rashes or lesions noted Course Vital Signs: Vital signs: Vital Signs Temperature 98.9 F 01/25/22 08:26 Pulse Rate 84 01/25/22 09:46 Respiratory Rate 18 01/25/22 09:46 Blood Pressure 130/80 01/25/22 09:46 Pulse Oximetry 94 01/25/22 09:46 MDM - General Adult Medical Decision Making Patient is a very nice 66-year-old male here with his for concerns of fatigue, shortness of breath, cough/congestion, intermittent fevers, weight loss, and diarrhea. He states his symptoms have been present at least over the past 3 months concerned as they do not seem to be improving. Patient's vitals have been stable throughout his stay. He is not tachycardic or febrile here. He clinically appears well. Work-up here shows fairly normal CBC, chemistry shows a magnesium of 1.5, potassium of 3.0, calcium of 6.9 (corrected to 7.9), and minor elevations to his LFTs. He was given magnesium and potassium prior to discharge. He does not complain of muscle spasms or seizures. EKG showing no prolonged QT. Patient's procalcitonin, lactate, and D-dimer were all within normal limits. His CXR was normal. Coronavirus PCR pending. He did have an appointment scheduled with Dr. Jane for 02/16. Case management was able to call over and get him an appointment for this at 10:30 for further evaluation. Discussed case with Dr. Faust who felt this was an appropriate plan for this patient. Of note he is a 50-year smoker. There certainly could be a COPD baseline component to his shortness of breath/cough/congestion. I did place a referral to pulmonology for PFTs and evaluation/treatment for COPD based on these results. Lab Data : 01/25/22 09:00 01/25/22 09:00 Radiology Impressions Chest X-Ray 01/25/22 08:26 IMPRESSION: No acute findings. Laboratory Results WBC 4.3 10^3/uL (4.0-10.0) 01/25/22 09:00 Corrected WBC Cancelled 01/25/22 08:30 RBC 5.17 10^6/uL (4.1-5.3) 01/25/22 09:00 Hgb 15.0 g/dL (11.7-16.6) 01/25/22 09:00 Hct 44.9 % (42.0-52.0) 01/25/22 09:00 MCV 86.8 fl (80-94) 01/25/22 09:00 MCH 29.0 pg (28.0-34.0) 01/25/22 09:00 MCHC 33.4 g/dL (30.0-36.0) 01/25/22 09:00 RDW 13.3 % (12.1-15.1) 01/25/22 09:00 Plt Count 217 10^3/cmm (130-400) 01/25/22 09:00 MPV 10.3 fL (7.4-10.4) 01/25/22 09:00 Gran % Cancelled 01/25/22 08:30 Neut % (Auto) 69.8 % 01/25/22 09:00 Lymph % (Auto) 9.0 % 01/25/22 09:00 [place] % (Auto) 17.1 % 01/25/22 09:00 Eos % (Auto) 2.5 % 01/25/22 09:00 Baso % (Auto) 0.7 % 01/25/22 09:00 Neut # (Auto) 3.02 10^3/uL (1.8-7.7) 01/25/22 09:00 Lymph # (Auto) 0.4 10^3/uL (0.8-4.8) L 01/25/22 09:00 [place] # (Auto) 0.7 10^3/uL (0.2-0.9) 01/25/22 09:00 Eos # (Auto) 0.1 10^3/uL (0.0-0.8) 01/25/22 09:00 Baso # (Auto) 0.0 10^3/uL (0.0-0.1) 01/25/22 09:00 Absolute Gran (auto) Cancelled 01/25/22 08:30 Nucleated RBC % (auto) 0 % 01/25/22 09:00 Nucleated RBCs # 0.0 /100WBC 01/25/22 09:00 D-Dimer 0.41 ug/mIFEU (0-0.59) 01/25/22 09:00 Sodium 138 mmol/L (136-145) 01/25/22 09:00 Potassium 3.0 mmol/L (3.5-5.1) L 01/25/22 09:00 Chloride 110 mmol/L (98-107) H 01/25/22 09:00 Carbon Dioxide 19 mmol/L (22-29) L 01/25/22 09:00 Anion Gap 12.0 (5-19) 01/25/22 09:00 BUN 8 mg/dL (8-23) 01/25/22 09:00 Creatinine 0.6 mg/dL (0.7-1.2) L 01/25/22 09:00 GFR Calculation 135.6 mL/min (90-130) H 01/25/22 09:00 Glucose 120 mg/dL (65-115) H 01/25/22 09:00 Calculated Osmolality 286 mOsm/kg (285-295) 01/25/22 09:00 Lactic Acid 1.8 mmol/L (0.5-2.2) 01/25/22 09:00 Calcium 6.9 mg/dL (8.5-10.5) L 01/25/22 09:00 Magnesium 1.5 mg/dL (1.7-2.3) L 01/25/22 09:00 Total Bilirubin 0.4 mg/dL (0.15-1.2) 01/25/22 09:00 AST 41 U/L (0-40) H 01/25/22 09:00 ALT 58 U/L (0-41) H 01/25/22 09:00 Alkaline Phosphatase 62 IU/L (40-130) 01/25/22 09:00 Total Protein 5.1 g/dL (6.6-8.7) L 01/25/22 09:00 Albumin 2.7 g/dL (3.5-5.2) L 01/25/22 09:00 Globulin 2.4 g/dL (1.3-4.6) 01/25/22 09:00 Procalcitonin 0.07 ng/mL (0-0.5) 01/25/22 09:00 Coronavirus 229E (PCR) Not detected (NOT DETECT) 01/25/22 09:15 SARS-CoV-2 (PCR) Not detected (NOT DETECT) 01/25/22 09:15 Discharge Plan Discharge Patient Disposition: Home Clinical Impression: Fatigue, Hypocalcemia, Dyspnea Condition: Stable Prescriptions: No Action sildenafil (pulm.hypertension) 20 mg tablet 20 mg PO TID 0RF Rx Instructions: administer doses at least 4-6 hours apart Take 2 or 3 tabs 30-60 min prior to activity Discharge Orders: Discharge ED (Routine); Ordered 01/25/22 Ordered By: Marianne Christopher Activity Restrictions/Additional Instructions: As we discussed you have an appointment to see Dr. Jane on 01/27 at 10:30. Coding Level of Care Code ED Primary Grade Teacher for Chg Fwd Exam Comprehensive Documented by User: Alejandro Faust DO 01/26/22 21:39 HPI - General Adult General: Chief complaint: Fever Stated complaint: fever x 1 week, cough Time Seen by Provider: 01/25/22 08:03 [facility] ED PFSH: Social History Smoking and tobacco status: current every day smoker Physical Exam Neuro: GHISLAINE COMA SCALE: document GCS findings Ghislaine coma scale total score: 15 Course Vital Signs: Vital signs: Vital Signs Temperature 98.9 F 01/25/22 08:26 Pulse Rate 84 01/25/22 09:46 Respiratory Rate 18 01/25/22 09:46 Blood Pressure 130/80 01/25/22 09:46 Pulse Oximetry 94 01/25/22 09:46 MDM - General Adult Medical Decision Making Patient is a very nice 66-year-old male here with his for concerns of fatigue, shortness of breath, cough/congestion, intermittent fevers, weight loss, and diarrhea. He states his symptoms have been present at least over the past 3 months concerned as they do not seem to be improving. Patient's vitals have been stable throughout his stay. He is not tachycardic or febrile here. He clinically appears well. Work-up here shows fairly normal CBC, chemistry shows a magnesium of 1.5, potassium of 3.0, calcium of 6.9 (corrected to 7.9), and minor elevations to his LFTs. He was given magnesium and potassium prior to discharge. He does not complain of muscle spasms or seizures. EKG showing no prolonged QT. Patient's procalcitonin, lactate, and D-dimer were all within normal limits. His CXR was normal. Coronavirus PCR pending. He did have an appointment scheduled with Dr. Jane for 02/16. Case management was able to call over and get him an appointment for this at 10:30 for further evaluation. Discussed case with Dr. Faust who felt this was an appropriate plan for this patient. Of note he is a 50-year smoker. There certainly could be a COPD baseline component to his shortness of breath/cough/congestion. I did place a referral to pulmonology for PFTs and evaluation/treatment for COPD based on these results. Chart reviewed and patient discussed with midlevel. Agree with assessment and plan. Lab Data : 01/25/22 09:00 01/25/22 09:00 Radiology Impressions Chest X-Ray 01/25/22 08:26 IMPRESSION: No acute findings. Laboratory Results WBC 4.3 10^3/uL (4.0-10.0) 01/25/22 09:00 Corrected WBC Cancelled 01/25/22 08:30 RBC 5.17 10^6/uL (4.1-5.3) 01/25/22 09:00 Hgb 15.0 g/dL (11.7-16.6) 01/25/22 09:00 Hct 44.9 % (42.0-52.0) 01/25/22 09:00 MCV 86.8 fl (80-94) 01/25/22 09:00 MCH 29.0 pg (28.0-34.0) 01/25/22 09:00 MCHC 33.4 g/dL (30.0-36.0) 01/25/22 09:00 RDW 13.3 % (12.1-15.1) 01/25/22 09:00 Plt Count 217 10^3/cmm (130-400) 01/25/22 09:00 MPV 10.3 fL (7.4-10.4) 01/25/22 09:00 Gran % Cancelled 01/25/22 08:30 Neut % (Auto) 69.8 % 01/25/22 09:00 Lymph % (Auto) 9.0 % 01/25/22 09:00 [place] % (Auto) 17.1 % 01/25/22 09:00 Eos % (Auto) 2.5 % 01/25/22 09:00 Baso % (Auto) 0.7 % 01/25/22 09:00 Neut # (Auto) 3.02 10^3/uL (1.8-7.7) 01/25/22 09:00 Lymph # (Auto) 0.4 10^3/uL (0.8-4.8) L 01/25/22 09:00 [place] # (Auto) 0.7 10^3/uL (0.2-0.9) 01/25/22 09:00 Eos # (Auto) 0.1 10^3/uL (0.0-0.8) 01/25/22 09:00 Baso # (Auto) 0.0 10^3/uL (0.0-0.1) 01/25/22 09:00 Absolute Gran (auto) Cancelled 01/25/22 08:30 Nucleated RBC % (auto) 0 % 01/25/22 09:00 Nucleated RBCs # 0.0 /100WBC 01/25/22 09:00 D-Dimer 0.41 ug/mIFEU (0-0.59) 01/25/22 09:00 Sodium 138 mmol/L (136-145) 01/25/22 09:00 Potassium 3.0 mmol/L (3.5-5.1) L 01/25/22 09:00 Chloride 110 mmol/L (98-107) H 01/25/22 09:00 Carbon Dioxide 19 mmol/L (22-29) L 01/25/22 09:00 Anion Gap 12.0 (5-19) 01/25/22 09:00 BUN 8 mg/dL (8-23) 01/25/22 09:00 Creatinine 0.6 mg/dL (0.7-1.2) L 01/25/22 09:00 GFR Calculation 135.6 mL/min (90-130) H 01/25/22 09:00 Glucose 120 mg/dL (65-115) H 01/25/22 09:00 Calculated Osmolality 286 mOsm/kg (285-295) 01/25/22 09:00 Lactic Acid 1.8 mmol/L (0.5-2.2) 01/25/22 09:00 Calcium 6.9 mg/dL (8.5-10.5) L 01/25/22 09:00 Magnesium 1.5 mg/dL (1.7-2.3) L 01/25/22 09:00 Total Bilirubin 0.4 mg/dL (0.15-1.2) 01/25/22 09:00 AST 41 U/L (0-40) H 01/25/22 09:00 ALT 58 U/L (0-41) H 01/25/22 09:00 Alkaline Phosphatase 62 IU/L (40-130) 01/25/22 09:00 Total Protein 5.1 g/dL (6.6-8.7) L 01/25/22 09:00 Albumin 2.7 g/dL (3.5-5.2) L 01/25/22 09:00 Globulin 2.4 g/dL (1.3-4.6) 01/25/22 09:00 Procalcitonin 0.07 ng/mL (0-0.5) 01/25/22 09:00 Coronavirus 229E (PCR) Not detected (NOT DETECT) 01/25/22 09:15 SARS-CoV-2 (PCR) Not detected (NOT DETECT) 01/25/22 09:15 Discharge Plan Discharge Patient Disposition: Home Clinical Impression: Fatigue, Hypocalcemia, Dyspnea Condition: Stable Prescriptions: No Action sildenafil (pulm.hypertension) 20 mg tablet 20 mg PO TID 0RF Rx Instructions: administer doses at least 4-6 hours apart Take 2 or 3 tabs 30-60 min prior to activity Discharge Orders: Discharge ED (Routine); Ordered 01/25/22 Ordered By: Marianne Christopher Activity Restrictions/Additional Instructions: As we discussed you have an appointment to see Dr. Jane on 01/27 at 10:30. Coding Level of Care Code ED Primary Grade Teacher for Grace Fwd Exam Comprehensive
[2022-01-25 09:15] LABS: Basophils % 0.7 %; Eosinophils # 0.1 10^3/uL (0.0-0.8); Eosinophils % 2.5 %; Hematocrit 44.9 % (42.0-52.0); Lymphocytes # 0.4 10^3/uL (0.8-4.8); Mean Corpuscular HGB Conc 33.4 g/dL (30.0-36.0); Mean Corpuscular Volume 86.8 fl (80-94); Mean Platelet Volume 10.3 fL (7.4-10.4); Monocytes # 0.7 10^3/uL (0.2-0.9); Monocytes % 17.1 %; Neutrophils # 3.02 10^3/uL (1.8-7.7); Neutrophils % 69.8 %; Nucleated Red Blood Cells % 0 %; Platelet Count 217 10^3/cmm (130-400); Red Blood Count 5.17 10^6/uL (4.1-5.3); Red Cell Distribution Width 13.3 % (12.1-15.1); White Blood Count 4.3 10^3/uL (4.0-10.0)
[2022-01-25 09:26] LABS: D Dimer 0.41 ug/mIFEU (0-0.59)
[2022-01-25 09:27] LABS: Lactic Sepsis W/Reflex 1.8 mmol/L (0.5-2.2)
[2022-01-25 09:29] LABS: Alanine Aminotransferase 58 U/L (0-41); Albumin Level 2.7 g/dL (3.5-5.2); Alkaline Phosphatase 62 IU/L (40-130); Aspartate Amino Transferase 41 U/L (0-40); Blood Urea Nitrogen 8 mg/dL (8-23); Calcium 6.9 mg/dL (8.5-10.5); Carbon Dioxide 19 mmol/L (22-29); Chloride 110 mmol/L (98-107); Globulin 2.4 g/dL (1.3-4.6); Glomerular Filtration Rate 135.6 mL/min (90-130); Glucose 120 mg/dL (65-115); Osmolality Calculated 286 mOsm/kg (285-295); Sodium 138 mmol/L (136-145); Total Bilirubin 0.4 mg/dL (0.15-1.2); Total Protein 5.1 g/dL (6.6-8.7)
[2022-01-25 09:36] LABS: Procalcitonin 0.07 ng/mL (0-0.5)
--- NOTE | 2022-01-25 09:41 | ECG_ITS ---
[facility] Test Date: 2022-01-25 Pat Name: Jt Tate Department: Room: Gender: Male Industrial Engineer: : 1955 Requested By: Marianne Chritsopher Order Number: [id number] Tammy MD: Mynor Donaldson M.D. Measurements Intervals [place] Rate: 75 P: 66 MS: 185 QRS: -63 QRSD: 109 T: 61 QT: 379 QTc: 425 Interpretive Statements SINUS RHYTHM INCOMPLETE RIGHT BUNDLE BRANCH BLOCK [90+ ms QRS DURATION, TERMINAL R IN V1/V2, 40+ ms S IN I/aVL/V4/V5/V6] LEFT ANTERIOR FASCICULAR BLOCK [QRS AXIS <= -45, QR IN I, RS IN II] SEPTAL MYOCARDIAL INFARCTION , PROBABLY OLD [40+ ms Q WAVE IN V1/V2] No previous ECG available for comparison Electronically Signed On 01-25-2022 17:59:22 CDT by Mynor Donaldson M.D. [id number]
[2022-01-25] MEDS: potassium chloride ER 20 mEq Tablet 40 MEQ PO (09:44)
[2022-01-25 09:46] VITALS: BP 130/80; PULSE 84; RESP 18; O2SAT 94
[2022-01-25 09:59] LABS: Magnesium 1.5 mg/dL (1.7-2.3)
--- NOTE | 2022-01-25 10:49 | DCPLANNER ---
Addendum entered by Amira Thornton 04/12/22 17:07: patient had a follow up appointment scheduled with Dr. Jane - patient did attend appointment. Original Note: social work manager was asked to see if patients appointment with Dr. Jane could be moved up any sooner. social work manager [facility], patients appointment was rescheduled for , January 27, 2022 at 10:30. social work manager informed ER physician, and patient of the appointment.
[2022-01-25 11:22] LABS: Adenovirus Not Detected (NOT DETECT); Chlamydia Pneumoniae Not Detected (NOT DETECT); Coronavirus 229E,HKU1,NL63,OC4 Not Detected (NOT DETECT); Human Metapneumovirus Not Detected (NOT DETECT); Human Rhinovirus/Enterovirus Not Detected (NOT DETECT); Influenza A Not Detected (NOT DETECT); Influenza A H1 Not Detected (NOT DETECT); Influenza A H1-2009 Not Detected (NOT DETECT); Influenza A H3 Not Detected (NOT DETECT); Influenza B Not Detected (NOT DETECT); Mycoplasma Pneumoniae Not Detected (NOT DETECT); Parainfluenza Virus Type 1 Not Detected (NOT DETECT); Parainfluenza Virus Type 2 Not Detected (NOT DETECT); Parainfluenza Virus Type 3 Not Detected (NOT DETECT); Parainfluenza Virus Type 4 Not Detected (NOT DETECT); Respiratory Syncytial Virus A Not Detected (NOT DETECT); Respiratory Syncytial Virus B Not Detected (NOT DETECT); SARS-COV-2 Not Detected (NOT DETECT)
[2022-01-26 06:51] LABS: Bacillus cereus group Not Detected (NOT DETECT); Bacillus subtillis group Not Detected (NOT DETECT); Corynebacterium Not Detected (NOT DETECT); Cutibacterium acnes (P.acnes) Not Detected (NOT DETECT); Enterococcus Not Detected (NOT DETECT); Enterococcus faecalis Not Detected (NOT DETECT); Enterococcus faecium Not Detected (NOT DETECT); Lactobacillus species Not Detected (NOT DETECT); Listeria Not Detected (NOT DETECT); Listeria monocytogenes Not Detected (NOT DETECT); Micrococcus Not Detected (NOT DETECT); Pan Candida Not Detected (NOT DETECT); Pan Gram-Negative Not Detected (NOT DETECT); Staphylococcus epidermidis Detected (NOT DETECT); Staphylococcus lugdunensis Not Detected (NOT DETECT); Staphylococcus species Detected (NOT DETECT); Streptococcus agalactiae Not Detected (NOT DETECT); Streptococcus anginosus group Not Detected (NOT DETECT); Streptococcus pneumoniae Not Detected (NOT DETECT); Streptococcus pyogenes Not Detected (NOT DETECT); Streptococcus species Not Detected (NOT DETECT); mecA Detected (NOT DETECT); mecC Not Detected (NOT DETECT)
--- NOTE | 2022-01-26 09:27 | DCPLANNER ---
Addendum entered by Amira Thornton 04/13/22 12:27: Patients appointment was cancelled Addendum entered by Amira Thornton 01/27/22 14:05: Patient has a follow up appointment scheduled for January at 2:[address] Omalley at [facility]. Clinic will call patient with appointment information. Original Note: manager package had message to schedule a follow up appointment for patient with pulmonology. manager package sent patients information to the front office staff at [facility]. Patients information will be printed and reviewed. Clinic will call patient with appointment information.
== END 2022-01-25 11:21 | disposition home or self-care (01) ==
PROVIDERS: Emergency Provider Physician Assistant
DX: R53.83 Other fatigue (principal); E83.51 Hypocalcemia; R06.00 Dyspnea, unspecified; F17.200 Nicotine dependence, unspecified, uncomplicated
CPT/HCPCS: 71045; 80053; 83605; 83735; 84145; 85025; 85378; 87040; 87150; 87205; 87635; 93005; 96365; 99284; J3475

== ENCOUNTER 2022-02-16 15:48 | Oncology outpatient (recurring) (ONCR) | payer OTHER, SELFPAY | END 2022-02-17 23:59 | disposition home or self-care (01) | PROVIDERS: Visit Provider Internal Medicine Medical Oncology | DX: C82.19 Follicular lymphoma grade II, extranodal and solid organ sites (principal); R53.82 Chronic fatigue, unspecified; R61 Generalized hyperhidrosis; R63.4 Abnormal weight loss; Z68.28 Body mass index [BMI] 28.0-28.9, adult; R19.7 Diarrhea, unspecified; Z79.52 Long term (current) use of systemic steroids; Z79.899 Other long term (current) drug therapy; Z92.21 Personal history of antineoplastic chemotherapy | CPT/HCPCS: 80053; 83615; 85025; 85651; 86038; 86140; 86431; 87040; 87493 ==

== ENCOUNTER 2022-07-19 14:30 | Oncology outpatient (recurring) (ONCR) | payer MEDICARE, OTHER, SELFPAY ==
[2022-07-11 08:49] LABS: Basophils # 0.1 10^3/uL (0.0-0.1); Basophils % 1.5 %; Eosinophils # 0.2 10^3/uL (0.0-0.8); Eosinophils % 3.7 %; Hematocrit 47.7 % (42.0-52.0); Hemoglobin 15.5 g/dL (11.7-16.6); Lymphocytes % 19.4 %; Mean Corpuscular HGB Conc 32.5 g/dL (30.0-36.0); Mean Corpuscular Hemoglobin 29.3 pg (28.0-34.0); Mean Corpuscular Volume 90.2 fl (80-94); Mean Platelet Volume 9.9 fL (7.4-10.4); Monocytes # 0.7 10^3/uL (0.2-0.9); Monocytes % 12.9 %; Neutrophils # 3.34 10^3/uL (1.8-7.7); Neutrophils % 62.3 %; Nucleated Red Blood Cells % 0 %; Platelet Count 220 10^3/cmm (130-400); Red Blood Count 5.29 10^6/uL (4.1-5.3); Red Cell Distribution Width 13.2 % (12.1-15.1); White Blood Count 5.4 10^3/uL (4.0-10.0)
[2022-07-11 09:25] LABS: Alanine Aminotransferase 199 U/L (0-41); Albumin Level 4.2 g/dL (3.5-5.2); Alkaline Phosphatase 84 U/L (40-130); Anion Gap 15.6 (5-19); Aspartate Amino Transferase 88 U/L (0-40); Blood Urea Nitrogen 12 mg/dL (8-23); Calcium 9.9 mg/dL (8.5-10.5); Carbon Dioxide 24 mmol/L (22-29); Chloride 102 mmol/L (98-107); Chol HDL Ratio 3.88 mg/dL (1.0-5.00); Cholesterol 163 mg/dL (0-200); Globulin 2.9 g/dL (1.3-4.6); Glomerular Filtration Rate 113.2 mL/min (90-130); Glucose 104 mg/dL (65-115); HDL Cholesterol 42 mg/dL (60-100); LDL Cholesterol Calculated 107 mg/dL (50-129); LDL HDL Ratio 2.55 RATIO (0.00-3.22); Lactate Dehydrogenase 191 U/L (135-225); Osmolality Calculated 284 mOsm/kg (285-295); Potassium 4.6 mmol/L (3.5-5.1); Sodium 137 mmol/L (136-145); Total Bilirubin 0.5 mg/dL (0.15-1.2); Total Protein 7.1 g/dL (6.6-8.7); Triglycerides 70 mg/dL (0-150)
[2022-07-11 15:55] LABS: Estmated Average Glucose 146; Hemoglobin A1C 6.7 % (4.0-6.0)
[2022-07-13 02:57] LABS: C-Peptide 2.46 ng/mL (0.80-3.85)
[2022-07-21 18:20] LABS: GAD 65 IA-2 Antibody <5.4 U/mL (<5.4); GAD Insulin Autoantibody <0.4 U/mL (<0.4); Glutamic Acid Decarboxylase 65 <5 IU/mL (<5)
== END 2022-07-20 23:59 | disposition home or self-care (01) ==
PROVIDERS: Internal Medicine; Visit Provider Internal Medicine Medical Oncology
DX: C82.18 Follicular lymphoma grade II, lymph nodes of multiple sites; R53.0 Neoplastic (malignant) related fatigue; R63.0 Anorexia; Z68.25 Body mass index [BMI] 25.0-25.9, adult; F17.210 Nicotine dependence, cigarettes, uncomplicated; E11.9 Type 2 diabetes mellitus without complications; I10 Essential (primary) hypertension; Z79.899 Other long term (current) drug therapy
CPT/HCPCS: 36415; 80053; 80061; 83036; 83615; 84681; 85025; 86337; 86341; 99214

== ENCOUNTER → 2022-08-09 13:00 | Outpatient (BNVA) | payer MEDICARE, OTHER, SELFPAY | PROVIDERS: Visit Provider Internal Medicine | DX: E11.9 Type 2 diabetes mellitus without complications (principal); E78.2 Mixed hyperlipidemia; Z79.84 Long term (current) use of oral hypoglycemic drugs | CPT/HCPCS: 99214 ==

== ENCOUNTER 2022-09-10 10:30 | Outpatient (CLI) | payer MEDICARE, OTHER, SELFPAY ==
--- NOTE | 2022-09-10 | PETR_ITS ---
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 . In May 2019 he began a 4-week course of rituximab for disease progression in the abdomen/pelvis region. . His restaging CT scans from 11/25/2020 showed significant disease progression including a left mesenteric mass measuring 7.8 x 7.8 x 6.8 cm. . He then began cycle 1 of bendamustine/obinutuzumab on 04/05/2021. he had a mild infusion reaction with the initial dose of obinutuzumab, but he tolerated it well thereafter. ; Additional info: Follicular lymphoma grade ii, ln multiple sites LABS AND CLINICAL REPORTS: Glucose: 97 mg/dl Treatment strategy for malignancy (PET staging): Restaging (PS) TECHNIQUE: Imaging protocol: Following at least four-hour fasting and following the injection of F-18-FDG, low dose CT images were obtained. Then, PET images were obtained. Attenuation corrected images were constructed using the CT scan. Fused images of PET and CT were reviewed. The standardized uptake values (SUV) reported below are maximum values within a region of interest, expressed in gm/ml. Exam includes orbital meatal line to mid-thigh. Radiopharmaceutical: 13.8 mCi F-18 FDG (Fluorodeoxyglucose), IV. Time of imaging post radiopharmaceutical administration: 1 hour Injection site: Right AC COMPARISON: PT PET Scan 01/02/2021 12:[address] chest abdomen pelvis from 11/18/2021 FINDINGS: Brain: Visualized brain has normal physiologic uptake. Pharynx: No abnormal uptake. Larynx: No abnormal uptake. Lungs, pleura and trachea: No abnormal uptake. Heart: Normal physiologic uptake. Mediastinal space: No abnormal uptake. Liver: No abnormal uptake. Gallbladder and bile ducts: No abnormal uptake. Pancreas: No abnormal uptake. Spleen: No abnormal uptake. Adrenal glands: No abnormal uptake. Kidneys and ureters: Tiny nonobstructing left renal calculus. Stomach and bowel: No abnormal uptake. Appendix: Similar mild enlargement and thickening of the appendix, which appears unchanged since at least 11/25/2020. There is no associated increased FDG uptake. Intraperitoneal and retroperitoneal spaces: Increased FDG uptake within a solid ovoid mesenteric mass with SUV max 12.8. This measures 2.3 x 3.1 cm. A smaller adjacent mesenteric nodule measures 1.9 x 2.5 cm with SUV max 4.6. These appear more masslike and have increased in bulk compared to CT from 11/18/2021 but have decreased in size compared to PET from 01/02/2021. Some more ill-defined stranding and soft tissue density in the mesentery does not have increased FDG uptake. Vasculature: No abnormal uptake. Lymph nodes: No abnormal uptake. No lymphadenopathy in the head, neck, chest, abdomen, pelvis, and extremities. Bones/joints: No abnormal uptake in the visualized axial and appendicular skeleton. Soft tissues: No abnormal uptake in the visualized head, neck, chest, abdomen, pelvis, and extremities. [id number] IMPRESSION: Ovoid hypermetabolic mesenteric mass appears increased in size compared to CT from 11/18/2021 but decreased in size from PET dated 01/02/2021.
== END 2022-09-10 10:31 | disposition home or self-care (01) ==
LOC: RAD 09-12 06:02
PROVIDERS: Visit Provider Internal Medicine Medical Oncology
DX: C82.18 Follicular lymphoma grade II, lymph nodes of multiple sites (principal)
CPT/HCPCS: 78815; A9552

== ENCOUNTER 2022-10-14 08:55 | Oncology outpatient (recurring) (ONCR) | payer MEDICARE, OTHER, SELFPAY ==
[2022-10-14 09:23] LABS: Basophils # 0.1 10^3/uL (0.0-0.1); Basophils % 1.7 %; Eosinophils # 0.1 10^3/uL (0.0-0.8); Eosinophils % 2.2 %; Hematocrit 49.8 % (42.0-52.0); Hemoglobin 16.2 g/dL (11.7-16.6); Lymphocytes # 1.1 10^3/uL (0.8-4.8); Lymphocytes % 17.3 %; Mean Corpuscular HGB Conc 32.5 g/dL (30.0-36.0); Mean Corpuscular Hemoglobin 29.3 pg (28.0-34.0); Mean Corpuscular Volume 90.1 fl (80-94); Mean Platelet Volume 9.4 fL (7.4-10.4); Monocytes # 0.6 10^3/uL (0.2-0.9); Monocytes % 8.8 %; Neutrophils # 4.53 10^3/uL (1.8-7.7); Neutrophils % 69.7 %; Nucleated Red Blood Cells % 0 %; Platelet Count 196 10^3/cmm (130-400); Red Blood Count 5.53 10^6/uL (4.1-5.3); Red Cell Distribution Width 13.2 % (12.1-15.1); White Blood Count 6.5 10^3/uL (4.0-10.0)
[2022-10-14 09:45] LABS: Alanine Aminotransferase 40 U/L (0-41); Albumin Level 4.2 g/dL (3.5-5.2); Alkaline Phosphatase 79 U/L (40-130); Anion Gap 12.6 (5-19); Aspartate Amino Transferase 32 U/L (0-40); Blood Urea Nitrogen 13 mg/dL (8-23); Calcium 9.9 mg/dL (8.5-10.5); Carbon Dioxide 27 mmol/L (22-29); Chloride 104 mmol/L (98-107); Globulin 2.7 g/dL (1.3-4.6); Glomerular Filtration Rate 84.7 mL/min (90-130); Glucose 109 mg/dL (65-115); Lactate Dehydrogenase 233 U/L (135-225); Osmolality Calculated 289 mOsm/kg (285-295); Potassium 4.6 mmol/L (3.5-5.1); Sodium 139 mmol/L (136-145); Total Bilirubin 0.7 mg/dL (0.15-1.2); Total Protein 6.9 g/dL (6.6-8.7)
== END 2022-10-18 23:59 | disposition home or self-care (01) ==
PROVIDERS: Visit Provider Internal Medicine Medical Oncology
DX: C82.18 Follicular lymphoma grade II, lymph nodes of multiple sites (principal); Z90.49 Acquired absence of other specified parts of digestive tract; E11.9 Type 2 diabetes mellitus without complications; Z92.21 Personal history of antineoplastic chemotherapy
CPT/HCPCS: 36415; 80053; 83615; 85025; 99214

== ENCOUNTER → 2022-12-05 13:24 | Outpatient (BNVA) | payer MEDICARE, OTHER, SELFPAY | PROVIDERS: Visit Provider Internal Medicine | DX: E11.9 Type 2 diabetes mellitus without complications (principal); E78.2 Mixed hyperlipidemia; Z79.84 Long term (current) use of oral hypoglycemic drugs | CPT/HCPCS: 99214 ==

== ENCOUNTER 2023-01-19 09:08 | Oncology outpatient (recurring) (ONCR) | payer MEDICARE, OTHER, SELFPAY ==
[2023-01-19] MEDS: iohexol 350 mg/mL 500 mL Btl (per mL) IV (09:18)
[2023-01-19] MEDS: iohexol 350 mg/mL 500 mL Btl (per mL) PO (09:19)
[2023-01-19 09:23] LABS: Basophils # 0.1 10^3/uL (0.0-0.1); Basophils % 1.6 %; Eosinophils # 0.2 10^3/uL (0.0-0.8); Eosinophils % 2.6 %; Hematocrit 49.2 % (42.0-52.0); Hemoglobin 16.6 g/dL (11.7-16.6); Lymphocytes # 1.4 10^3/uL (0.8-4.8); Lymphocytes % 20.3 %; Mean Corpuscular HGB Conc 33.7 g/dL (30.0-36.0); Mean Platelet Volume 8.9 fL (7.4-10.4); Monocytes # 0.6 10^3/uL (0.2-0.9); Monocytes % 8.7 %; Neutrophils # 4.65 10^3/uL (1.8-7.7); Neutrophils % 66.5 %; Nucleated Red Blood Cells % 0 %; Platelet Count 217 10^3/cmm (130-400); Red Blood Count 5.53 10^6/uL (4.1-5.3); Red Cell Distribution Width 12.2 % (12.1-15.1)
[2023-01-19 09:40] LABS: Alanine Aminotransferase 34 U/L (0-41); Albumin Level 4.4 g/dL (3.5-5.2); Alkaline Phosphatase 67 U/L (40-130); Blood Urea Nitrogen 12 mg/dL (8-23); Calcium 9.2 mg/dL (8.5-10.5); Carbon Dioxide 25 mmol/L (22-29); Chloride 103 mmol/L (98-107); Globulin 2.7 g/dL (1.3-4.6); Glucose 101 mg/dL (65-115); Osmolality Calculated 286 mOsm/kg (285-295); Sodium 138 mmol/L (136-145); Total Bilirubin 0.8 mg/dL (0.15-1.2); Total Protein 7.1 g/dL (6.6-8.7)
[2023-01-19 09:50] LABS: Anion Gap 14.6 (5-19); Potassium 4.6 mmol/L (3.5-5.1)
[2023-01-19 09:51] LABS: Aspartate Amino Transferase 27 U/L (0-40); Lactate Dehydrogenase 202 U/L (135-225)
--- NOTE | 2023-01-19 10:30 | CT_ITS ---
WS: [id number] CT CHEST, ABDOMEN AND PELVIS WITH CONTRAST. HISTORY: Follow up lymphoma. New palpable area near the umbilicus. TECHNIQUE: Contiguous 5 mm axial imaging performed through the chest, abdomen and pelvis with IV cont rast, oral contrast has been provided. Coronal and sagittal reformats chest. Coronal and sagittal ref ormats through the abdomen and pelvis. All CT scans at [facility] use at least one of these d ose optimization techniques: automated exposure control; mA and/or kV adjustment per patient size (in cludes targeted exams where dose is matched to clinical indication); or iterative reconstruction. CONTRAST: Omnipaque 350; 100 mL IV. DLP: 1066.99 mGy.cm COMPARISON: 11/18/2021, 11/25/[address]: Lungs are clear. No metastatic nodules. Stable benign granuloma RIGHT lung base. No enlargi ng axillary mediastinal lymph nodes. There are several mediastinal and hilar lymph nodes. The largest lymph node is paraesophageal measuring 10 mm at the level of the arnoldo. Mild enlargement of the LEF T heart. No pericardial or pleural effusions. Small hiatal hernia. Mild atherosclerosis aorta. No brian picious bone lesions identified. Abdomen CT: Subtle area of decreased enhancement in the RIGHT lobe of the liver measures 1.8 cm. The remaining liver is negative. Normal portal vein. Prior cholecystectomy. Normal spleen. Normal adrenal glands and pancreas. No renal obstruction. Nonobstructing calcification lower pole LEFT kidney. Well-distended stomach with oral contrast. No GI tract obstruction. Small bowel wall thickening with mesenteric soft tissue mass in the LEFT abdomen at the site of the previously described infiltrate me senteric tumor. Small bowel wall thickening up to 6 mm. The lumen is narrowed over a short segment. T here may be slight improvement since the prior study. There is a new soft tissue mass in the central abdomen just to the LEFT of the umbilicus measuring 4.7 x 3.4 cm. Inseparable from the adjacent small bowel loops with wall thickening. No obstruction. Appendix is thickened with mild enhancement. Diame ter of the appendix is 8.7 mm. No adjacent inflammation. This does represent a new finding since 11/17. There is marked fluid distention of the cecum. On several images there is increased soft tissu e at the base of the cecum which should be further evaluated. There is also a change in caliber of th e colon near the hepatic flexure. Mild constipation. Scattered diverticular disease. There are small retroperitoneal lymph nodes which are more prominent in size and number as compared t o 11/18/2021. Aortocaval lymph node measures 12 mm. Majority of the lymph nodes are less than a centim eter. Pelvic CT: Normal urinary bladder. Prostate is enlarged and heterogeneous encroaching upon the bladde r. No free fluid in the pelvis. No enlarged lymph nodes. No destructive bone lesions. L3 anterolisthesis by [address]/CT chest abdpel w/*[id number] IMPRESSION: 1. New mesenteric soft tissue mass involving the small bowel at the level of t he umbilicus and just to the LEFT of midline measures 4.7 x 3.3 cm. Suspicious for recurrent lymphoma. 2. Previously described infiltrative mesenteric mass with small bowel involvem ent in the LEFT abdomen is reidentified and has not increased in size. 3. Mild progressive widening and thickening of the appendix since 11/18/2019. T here is adjacent increased soft tissue in the cecum. Lymphomatous involvement s hould be excluded. There is also changing caliber of the colon near the hepatic flexure for which underlying neoplasm is not excluded. Recommend colonoscopy. 4. Retroperitoneal lymph nodes have increased in size and number with the larg est measuring 12 mm in the aortocaval region. 5. No metastatic pulmonary nodules.
[2023-01-19 13:00] LABS: Estmated Average Glucose 126
== END 2023-01-19 23:59 | disposition home or self-care (01) ==
LOC: RAD 09:10 → ONCMED 03-14 12:01
PROVIDERS: Visit Provider Internal Medicine Medical Oncology
DX: E78.2 Mixed hyperlipidemia (principal); C82.90 Follicular lymphoma, unspecified, unspecified site; C82.18 Follicular lymphoma grade II, lymph nodes of multiple sites; R53.82 Chronic fatigue, unspecified; R50.9 Fever, unspecified; R63.0 Anorexia; Z68.1 Body mass index [BMI] 19.9 or less, adult; E11.9 Type 2 diabetes mellitus without complications; Z79.4 Long term (current) use of insulin; Z79.899 Other long term (current) drug therapy
CPT/HCPCS: 71260; 74177; 80053; 83036; 83615; 85025; 99214; Q9967

== ENCOUNTER → 2023-02-07 08:50 | Outpatient (BNVA) | payer MEDICARE, OTHER, SELFPAY | PROVIDERS: Visit Provider Surgery | DX: C82.90 Follicular lymphoma, unspecified, unspecified site (principal); K43.2 Incisional hernia without obstruction or gangrene; R19.00 Intra-abdominal and pelvic swelling, mass and lump, unspecified site | CPT/HCPCS: 99203 ==

== ENCOUNTER 2023-03-08 08:28 | Day surgery (SDC) | payer MEDICARE, OTHER, SELFPAY ==
[2023-03-06 10:58] VITALS: BMI 29.1
[2023-03-08 08:57] VITALS: BP 121/71; PULSE 67; RESP 18; TEMP 36.6; O2SAT 98
[2023-03-08] MEDS: sodium chloride 0.9% 1,000 ML 30 ML IV (09:10)
[2023-03-08 09:21] LABS: Glucose Point of Care 102 mg/dL (70-110)
--- NOTE | 2023-03-08 09:24 | P.ANESASSM_ITS ---
Pre-Anesthetic Assessment Height/Weight: Height 1.83 m Weight 97.522 kg Temp Pulse Resp BP Pulse Ox O2 Del Method 97.9 F 67 18 121/71 98 Room Air 03/08/23 08:57 03/08/23 08:57 03/08/23 08:57 03/08/23 08:57 03/08/23 08:57 03/08/23 08:57 Preop Diagnosis: screening Operation Date: 03/08/23 09:45 Proposed Procedures p Colonoscopy 85161,Z12.11(Not Applicable) - Julio Orozco DO Familial anesthetic complications: none Was Beta Isaac taken within 24 hours: N/A Last intake: Intake Last Liquid Date 03/07/23 Last Liquid Time 20:00 Last Solid Date 03/06/23 Last Solid Time 18:00 Social Tobacco 1ppd pack(s) per day Exam alert, oriented x 3, clear to auscultation bilaterally and regular rate & rhythm Airway Submandibular: within normal limits Cervical ROM: within normal limits Mallampati: Class II Dentition: full Pulmonary None reported CV/HEM Hypertension None reported Hepatic None reported GI None reported Metabolic Diabetes [place] [facility] [place] None reported Neuropsych None reported Anesthetic Plan ASA status: 2 Anesthesia: MAC Medications/Allergies Home Medications Medication Instructions Recorded Confirmed Last Taken Type cholecalciferol (vitamin D3) 25 25 mcg PO DAILY 04/19/22 03/08/23 03/07/23 History mcg (1,000 unit) capsule blood sugar diagnostic (ReliOn #200 ea 04/28/22 02/07/23 Unknown Rx Prime Test Strips) blood-glucose meter (ReliOn #1 ea 04/28/22 02/07/23 Unknown Rx All-In-One Meter kit) empagliflozin 25 mg tablet 25 mg PO DAILY #90 tabs 04/28/22 03/08/23 03/07/23 Rx (Jardiance) lancing device with lancets kit #1 ea 04/28/22 02/07/23 Unknown Rx (Accu-Chek FastClix Lancing Device kit) ubidecarenone-omega 3-vit E 25 1 cap PO DAILY 01/19/23 03/08/23 03/07/23 History mg-150 (90-60) mg-200 unit capsule (Co [id number] E-Fish Oil) amlodipine 5 mg tablet See Rx Instructions .Route 01/24/23 03/08/23 03/07/23 Rx .COMPLEX #90 tabs Fish Oil 1 cap PO DAILY 03/08/23 03/08/23 03/07/23 History Allergies Allergy/AdvReac Type Severity Reaction Status Date / Time No Known Allergies Allergy Verified 03/08/23 08:54 Current Medications Generic Name Dose Route Start Last Admin Trade Name Howardq PRN Reason Stop Dose Admin Sodium Chloride 1,000 mls @ 30 mls/hr 03/08/23 09:00 03/08/23 09:10 Sodium Chloride 0.9% IV 03/09/23 08:59 30 mls/hr .Q24H ROYCE Administration PFSH Anesthesia Medical History Follicular lymphoma History of COVID-19 Hyperlipemia, mixed Hypertension Obstructive sleep apnea Type 2 diabetes mellitus Surgical History History of cholecystectomy (09/2019) History of resection of small bowel (02/2011) Exploratory laparotomy with segmental small bowel resection Hx of colonoscopy (2011) Hx of tonsillectomy S/P arthroscopic surgery of right knee x 2 Family History Sister Lupus Other Cancer Lung disease Denies family history of Diabetes CAD (coronary artery disease) Clotting disorder Dementia Hyperlipidemia Psychiatric illness Chronic kidney disease (CKD) Suicide Anesthesia complication Bleeding disorder Hypertension Stroke Social History Smoking and tobacco status: current every day smoker cigarettes Packs smoked per day: 1 Years cigarettes smoked: 50 Alcohol intake: never Data Anesthesia Cardiac Studies: No Data to Display
--- NOTE | 2023-03-08 10:01 | W.PM.OPSUD ---
Surgery/Procedure H&P Update DATE OF PROCEDURE: March 08, 2023 DATE H&P PERFORMED: 02/07/23 H&P UPDATE INFORMATION: I have reviewed H&P completed within last 30 days, I have examined patient prior to procedure and No changes to prior documentation PREOP DIAGNOSIS: screening PLANNED PROCEDURE: Operation Date: 03/08/23 09:45 Proposed Procedures p Colonoscopy 89331,Z12.11(Not Applicable) - Julio Orozco, DO
[2023-03-08 10:40] VITALS: BP 140/69; PULSE 72; RESP 14; TEMP 36.3; O2SAT 97
[2023-03-08 10:51] VITALS: BP 139/74; PULSE 88; RESP 16; O2SAT 99
[2023-03-08] MEDS: ondansetron 2 mg/ML SDV 2 mL 4 MG IVP (10:58)
[2023-03-08 11:04] VITALS: BP 123/68; PULSE 73; RESP 16; O2SAT 95
--- NOTE | 2023-03-08 14:57 | ANE.PACU2 ---
Inpatient post-anesthesia follow up: Airway intact: Yes Vital signs: Temperature 97.4 F Pulse Rate 73 Respiratory Rate 16 Blood Pressure 123/68 Pulse Oximetry 95 Oxygen Delivery Me thod Room Air Oxygen Flow Rate Fraction of Inspir ed Oxygen Hydration adequate: Yes Nausea and vomiting: No Pain level: 2 Mental status: Baseline
== END 2023-03-08 11:50 | disposition home or self-care (01) ==
PROVIDERS: Visit Provider Surgery
PROC: 0DJD8ZZ Inspection of Lower Intestinal Tract, Via Natural or Artificial Opening Endoscopic (ICD-10-PCS; CPT 45378; principal; 2023-03-08 09:45)
DX: Z12.11 Encounter for screening for malignant neoplasm of colon (principal); D12.5 Benign neoplasm of sigmoid colon; K57.30 Diverticulosis of large intestine without perforation or abscess without bleeding; K64.8 Other hemorrhoids; E11.9 Type 2 diabetes mellitus without complications; Z79.84 Long term (current) use of oral hypoglycemic drugs; E78.5 Hyperlipidemia, unspecified; I10 Essential (primary) hypertension; F17.210 Nicotine dependence, cigarettes, uncomplicated
CPT/HCPCS: 36416; 45385; 82962; 88305; J2405; J2704; J3490; J7030

== ENCOUNTER → 2023-04-04 16:10 | Outpatient (BNVA) | payer MEDICARE, OTHER, SELFPAY | PROVIDERS: Visit Provider Surgery | DX: Z09 Encounter for follow-up examination after completed treatment for conditions other than malignant neoplasm (principal) | CPT/HCPCS: 99212 ==

== ENCOUNTER 2023-04-17 11:27 | Oncology outpatient (recurring) (ONCR) | payer MEDICARE, OTHER, SELFPAY ==
[2023-04-17 11:44] LABS: Basophils # 0.1 10^3/uL (0.0-0.1); Basophils % 1.1 %; Eosinophils # 0.2 10^3/uL (0.0-0.8); Eosinophils % 1.9 %; Hematocrit 49.9 % (37-53); Lymphocytes # 2.2 10^3/uL (0.8-4.8); Lymphocytes % 23.5 %; Mean Corpuscular HGB Conc 33.9 g/dL (30-55); Mean Corpuscular Volume 88.6 fl (82-101); Monocytes % 10.5 %; Neutrophils # 5.79 10^3/uL (1.8-7.7); Neutrophils % 62.7 %; Nucleated Red Blood Cells % 0 %; Platelet Count 244 10^3/cmm (157-399); Red Blood Count 5.63 10^6/uL (3.85-5.65); Red Cell Distribution Width 12.2 % (12.1-15.1); White Blood Count 9.24 10^3/uL (3.29-11.43)
[2023-04-17 12:06] LABS: Alanine Aminotransferase 44 U/L (0-41); Albumin Level 4.5 g/dL (3.5-5.2); Alkaline Phosphatase 70 U/L (40-130); Anion Gap 17.2 (5-19); Aspartate Amino Transferase 29 U/L (0-40); Blood Urea Nitrogen 13 mg/dL (8-23); Calcium 9.3 mg/dL (8.5-10.5); Carbon Dioxide 21 mmol/L (22-29); Chloride 104 mmol/L (98-107); Glomerular Filtration Rate 67.2 mL/min (90-130); Glucose 91 mg/dL (65-115); Lactate Dehydrogenase 189 U/L (135-225); Osmolality Calculated 286 mOsm/kg (285-295); Potassium 4.2 mmol/L (3.5-5.1); Sodium 138 mmol/L (136-145); Total Bilirubin 0.7 mg/dL (0.15-1.2); Total Protein 7.5 g/dL (6.6-8.7)
== END 2023-04-20 23:59 | disposition home or self-care (01) ==
PROVIDERS: Visit Provider Internal Medicine Medical Oncology
DX: C82.18 Follicular lymphoma grade II, lymph nodes of multiple sites; R53.0 Neoplastic (malignant) related fatigue; Z79.899 Other long term (current) drug therapy; Z92.21 Personal history of antineoplastic chemotherapy; Z92.3 Personal history of irradiation
CPT/HCPCS: 80053; 83615; 85025; 99213

== ENCOUNTER → 2023-04-27 10:05 | Outpatient (BNVA) | payer MEDICARE, OTHER, SELFPAY | PROVIDERS: Visit Provider Surgery | DX: C82.18 Follicular lymphoma grade II, lymph nodes of multiple sites (principal); R19.00 Intra-abdominal and pelvic swelling, mass and lump, unspecified site | CPT/HCPCS: 99213 ==

== ENCOUNTER 2023-05-16 13:55 | Oncology outpatient (recurring) (ONCR) | payer MEDICARE, OTHER, SELFPAY ==
[2023-05-16 15:27] LABS: Basophils # 0.1 10^3/uL (0.0-0.1); Basophils % 1.1 %; Eosinophils # 0.2 10^3/uL (0.0-0.8); Eosinophils % 2.4 %; Hematocrit 46.4 % (37-53); Lymphocytes # 1.7 10^3/uL (0.8-4.8); Mean Corpuscular HGB Conc 34.1 g/dL (30-55); Mean Corpuscular Hemoglobin 30.3 pg (27-33); Mean Corpuscular Volume 88.9 fl (82-101); Mean Platelet Volume 9.5 fL (7.4-10.4); Monocytes # 0.7 10^3/uL (0.2-0.9); Monocytes % 8.3 %; Neutrophils # 5.61 10^3/uL (1.8-7.7); Neutrophils % 67.8 %; Nucleated Red Blood Cells % 0 %; Platelet Count 233 10^3/cmm (157-399); Red Blood Count 5.22 10^6/uL (3.85-5.65); Red Cell Distribution Width 12.3 % (12.1-15.1); White Blood Count 8.27 10^3/uL (3.29-11.43)
[2023-05-16 15:47] LABS: Alanine Aminotransferase 30 U/L (0-41); Albumin Level 4.3 g/dL (3.5-5.2); Alkaline Phosphatase 68 U/L (40-130); Anion Gap 14.8 (5-19); Aspartate Amino Transferase 19 U/L (0-40); Blood Urea Nitrogen 17 mg/dL (8-23); Calcium 9.3 mg/dL (8.5-10.5); Carbon Dioxide 24 mmol/L (22-29); Chloride 105 mmol/L (98-107); Globulin 2.5 g/dL (1.3-4.6); Glucose 154 mg/dL (65-115); Lactate Dehydrogenase 159 U/L (135-225); Osmolality Calculated 295 mOsm/kg (285-295); Potassium 3.8 mmol/L (3.5-5.1); Sodium 140 mmol/L (136-145); Total Bilirubin 0.6 mg/dL (0.15-1.2); Total Protein 6.8 g/dL (6.6-8.7)
== END 2023-05-20 23:59 | disposition home or self-care (01) ==
PROVIDERS: Nurse Practitioner Family; Visit Provider Internal Medicine Medical Oncology
DX: C82.18 Follicular lymphoma grade II, lymph nodes of multiple sites (principal)
CPT/HCPCS: 36415; 80053; 83615; 85025; 99214

== ENCOUNTER 2023-08-01 10:46 | Outpatient (CLI) | payer MEDICARE, OTHER, SELFPAY ==
--- NOTE | 2023-08-01 12:00 | CT_ITS ---
WS: [id number] CT CHEST, ABDOMEN, AND PELVIS TECHNIQUE: Contrast-enhanced CT of the chest, abdomen, and pelvis with coronal and sagittal reformatt ed images. CLINICAL INFORMATION: follow-up COMPARISON: CT 01/19/2023 and 11/18/2021 DLP: 1130.[address] scans at [facility] use at least one of these dose optimization techniques: automated e xposure control; mA and/or kV adjustment per patient size (includes targeted exams where dose is matc hed to clinical indication); or iterative reconstruction. CT CHEST: Lungs are well aerated. No acute pulmonary infiltrates. No suspicious pulmonary parenchymal opacities . No evidence of metastatic disease in the chest. Calcified granuloma RIGHT lower lobe. Normal calibe r thoracic aorta. No mediastinal or hilar lymphadenopathy. Proximal main pulmonary arteries appear no rmal. No axillary lymphadenopathy. Hypertrophic changes thoracic spine. CT ABDOMEN AND PELVIS: Previously described mesenteric soft tissue mass with small bowel involvement in the LEFT central abd omen near the umbilicus has progressed compared to previous today measuring 6.2 x 3.3 cm compared to 4.7 x 3.3 cm previous. Associated tethering of the adjacent small bowel similar in appearance to prev ious. Diffuse fatty filtration of the liver. A few small low-attenuation lesions in the liver are stable. N ormal portal vein and splenic vein. Normal spleen. Normal GE junction. Subtle infiltrative mesenteric mass in the LEFT mid abdomen involving the proximal jejunum with soft tissue thickening in this area is unchanged in appearance with mild luminal narrowing. A few prominent periaortic retroperitoneal lymph nodes are unchanged in appearance. Diffuse thickenin g of the appendix is similar in appearance to the prior examination. Portal vein and splenic vein are patent. Normal caliber abdominal aorta. Adrenal glands are normal. N ormal renal parenchymal enhancement. No hydronephrosis. Prior cholecystectomy. Prominent prostate ailyn suring 4.1 cm. Thickening of the seminal vesicles bilaterally. Recommend correlation PSA. Sigmoid div erticulosis. IMPRESSION: 1. No evidence of metastatic disease in the chest. 2. LEFT central mesenteric mass near the umbilicus is increased in size today measuring 6.2 x 3.3 cm consistent with progressed disease. Adjacent involvement of the small bowel is similar to previous. 3. Infiltrative subtle mesenteric mass involving the proximal jejunum with luminal narrowing is unch anged in appearance. 4. Diffuse thickening of the appendix is stable suspicious for lymphomatous involvement. 5. Stable prominent periaortic and retroperitoneal lymph nodes. 6. A few subtle hepatic lesions are unchanged in appearance. 7. Enlarged prostate with thickened seminal vesicles. Recommend correlation PSA.
[2023-08-01] MEDS: iohexol 350 mg/mL 500 mL Btl (per mL) PO (12:13)
[2023-08-01 12:24] LABS: Blood Urea Nitrogen 13 mg/dL (8-23); Glomerular Filtration Rate 60.6 mL/min (90-130)
[2023-08-01] MEDS: iohexol 350 mg/mL 500 mL Btl (per mL) IV (12:30)
== END 2023-08-01 10:47 | disposition home or self-care (01) ==
LOC: RAD 10:46
PROVIDERS: Visit Provider Nurse Practitioner Family
DX: C82.18 Follicular lymphoma grade II, lymph nodes of multiple sites (principal); K76.0 Fatty (change of) liver, not elsewhere classified; K76.9 Liver disease, unspecified; N40.0 Benign prostatic hyperplasia without lower urinary tract symptoms
CPT/HCPCS: 71260; 74177; 82565; 84520; Q9967

== ENCOUNTER 2023-08-10 12:30 | Oncology outpatient (recurring) (ONCR) | payer MEDICARE, OTHER, SELFPAY ==
[2023-08-10 12:40] VITALS: BP 138/80; PULSE 69; RESP 16; TEMP 36.4; O2SAT 98
[2023-08-10 12:45] LABS: Basophils # 0.1 10^3/uL (0.0-0.1); Basophils % 1.2 %; Eosinophils # 0.1 10^3/uL (0.0-0.8); Eosinophils % 1.8 %; Hematocrit 49.6 % (37-53); Lymphocytes # 1.7 10^3/uL (0.8-4.8); Lymphocytes % 22.9 %; Mean Corpuscular HGB Conc 34.1 g/dL (30-55); Mean Corpuscular Hemoglobin 30.5 pg (27-33); Mean Corpuscular Volume 89.5 fl (82-101); Mean Platelet Volume 9.2 fL (7.4-10.4); Monocytes # 0.7 10^3/uL (0.2-0.9); Monocytes % 9.1 %; Neutrophils # 4.77 10^3/uL (1.8-7.7); Neutrophils % 64.5 %; Nucleated Red Blood Cells % 0 %; Platelet Count 239 10^3/cmm (157-399); Red Blood Count 5.54 10^6/uL (3.85-5.65); Red Cell Distribution Width 12.3 % (12.1-15.1); White Blood Count 7.39 10^3/uL (3.29-11.43)
[2023-08-10 13:00] LABS: Alanine Aminotransferase 32 U/L (0-41); Albumin Level 4.5 g/dL (3.5-5.2); Alkaline Phosphatase 77 U/L (40-130); Anion Gap 13.1 (5-19); Aspartate Amino Transferase 22 U/L (0-40); Blood Urea Nitrogen 10 mg/dL (8-23); Calcium 9.8 mg/dL (8.5-10.5); Carbon Dioxide 26 mmol/L (22-29); Chloride 102 mmol/L (98-107); Creatinine Clr Calc Pharmacy 88.8781; Globulin 2.7 g/dL (1.3-4.6); Glomerular Filtration Rate 74.8 mL/min (90-130); Glucose 101 mg/dL (65-115); Lactate Dehydrogenase 173 U/L (135-225); Osmolality Calculated 283 mOsm/kg (285-295); Potassium 4.1 mmol/L (3.5-5.1); Sodium 137 mmol/L (136-145); Total Bilirubin 0.7 mg/dL (0.15-1.2); Total Protein 7.2 g/dL (6.6-8.7)
[2023-08-10 14:51] LABS: Estmated Average Glucose 128; Hemoglobin A1C 6.1 % (4.0-6.0)
== END 2023-08-20 23:59 | disposition home or self-care (01) ==
PROVIDERS: Nurse Practitioner Family; Visit Provider Internal Medicine Medical Oncology
DX: E78.2 Mixed hyperlipidemia (principal); C82.90 Follicular lymphoma, unspecified, unspecified site; C82.18 Follicular lymphoma grade II, lymph nodes of multiple sites; R53.82 Chronic fatigue, unspecified; R50.9 Fever, unspecified; R63.0 Anorexia; Z68.1 Body mass index [BMI] 19.9 or less, adult; E11.9 Type 2 diabetes mellitus without complications; Z79.4 Long term (current) use of insulin; Z79.899 Other long term (current) drug therapy; Z53.9 Procedure and treatment not carried out, unspecified reason
CPT/HCPCS: 36415; 80053; 83036; 83615; 85025; 99214

== ENCOUNTER 2023-08-23 14:37 | Oncology outpatient (recurring) (ONCR) | payer MEDICARE, OTHER, SELFPAY | END 2023-09-20 23:59 | disposition home or self-care (01) | PROVIDERS: Visit Provider Internal Medicine Medical Oncology | DX: Z53.9 Procedure and treatment not carried out, unspecified reason (principal); E78.9 Disorder of lipoprotein metabolism, unspecified; C82.18 Follicular lymphoma grade II, lymph nodes of multiple sites; Z79.899 Other long term (current) drug therapy | CPT/HCPCS: 36415 ==

== ENCOUNTER 2023-11-02 12:22 | Oncology outpatient (recurring) (ONCR) | payer MEDICARE, OTHER, SELFPAY ==
[2023-11-02 12:50] VITALS: BP 142/78; PULSE 64; RESP 18; TEMP 36.6; O2SAT 96
[2023-11-02 13:09] LABS: Basophils # 0.1 10^3/uL (0.0-0.1); Basophils % 1.1 %; Eosinophils # 0.2 10^3/uL (0.0-0.8); Eosinophils % 2.2 %; Hematocrit 47.6 % (37-53); Lymphocytes # 1.8 10^3/uL (0.8-4.8); Lymphocytes % 21.5 %; Mean Corpuscular HGB Conc 33.8 g/dL (30-55); Mean Corpuscular Hemoglobin 29.9 pg (27-33); Mean Corpuscular Volume 88.5 fl (82-101); Mean Platelet Volume 9.5 fL (7.4-10.4); Monocytes # 0.8 10^3/uL (0.2-0.9); Monocytes % 10.1 %; Neutrophils # 5.33 10^3/uL (1.8-7.7); Neutrophils % 64.7 %; Nucleated Red Blood Cells % 0 %; Platelet Count 229 10^3/cmm (157-399); Red Blood Count 5.38 10^6/uL (3.85-5.65); Red Cell Distribution Width 12.2 % (12.1-15.1); White Blood Count 8.23 10^3/uL (3.29-11.43)
[2023-11-02 13:32] LABS: Alanine Aminotransferase 35 U/L (0-41); Albumin Level 4.4 g/dL (3.5-5.2); Alkaline Phosphatase 73 U/L (40-130); Anion Gap 17.3 (5-19); Aspartate Amino Transferase 25 U/L (0-40); Blood Urea Nitrogen 11 mg/dL (8-23); Carbon Dioxide 23 mmol/L (22-29); Chloride 103 mmol/L (98-107); Globulin 2.8 g/dL (1.3-4.6); Glucose 124 mg/dL (65-115); Lactate Dehydrogenase 244 U/L (135-225); Osmolality Calculated 289 mOsm/kg (285-295); Potassium 4.3 mmol/L (3.5-5.1); Sodium 139 mmol/L (136-145); Total Bilirubin 0.7 mg/dL (0.15-1.2); Total Protein 7.2 g/dL (6.6-8.7)
[2023-11-02 14:25] LABS: Estmated Average Glucose 131; Hemoglobin A1C 6.2 % (4.0-6.0)
== END 2023-11-19 23:59 | disposition home or self-care (01) ==
LOC: ONCMED 12:22
PROVIDERS: Visit Provider Internal Medicine Medical Oncology
DX: C82.18 Follicular lymphoma grade II, lymph nodes of multiple sites; E78.9 Disorder of lipoprotein metabolism, unspecified; Z79.899 Other long term (current) drug therapy; E78.2 Mixed hyperlipidemia; C82.90 Follicular lymphoma, unspecified, unspecified site; R53.82 Chronic fatigue, unspecified; R50.9 Fever, unspecified; R63.0 Anorexia; Z68.1 Body mass index [BMI] 19.9 or less, adult; E11.9 Type 2 diabetes mellitus without complications; Z79.4 Long term (current) use of insulin
CPT/HCPCS: 36415; 80053; 83036; 83615; 85025; 99213

== ENCOUNTER 2023-11-21 14:48 | Outpatient (CLI) | payer MEDICARE, OTHER, SELFPAY ==
--- NOTE | 2023-11-21 15:00 | CT_ITS ---
WS: [id number] CT CHEST, ABDOMEN, AND PELVIS TECHNIQUE: Contrast-enhanced CT of the chest, abdomen, and pelvis with coronal and sagittal reformatt ed images. CLINICAL INFORMATION: lymphoma COMPARISON: CT 08/01/2023 DLP: 1110.[address] scans at [facility] use at least one of these dose optimization techniques: automated e xposure control; mA and/or kV adjustment per patient size (includes targeted exams where dose is matc hed to clinical indication); or iterative reconstruction. CT CHEST: Normal caliber thoracic aorta. Mild aortic calcification. Proximal main pulmonary arteries are normal . Coronary calcification. No mediastinal or hilar lymphadenopathy. No axillary lymphadenopathy. Mild thoracic kyphosis. Hypertrophic changes thoracic spine. Calcified granuloma RIGHT lower lobe. No new or suspicious pulmonary parenchymal opacities. No evidence of metastatic disease in the chest. CT ABDOMEN AND PELVIS: Previously described LEFT central mesenteric mass near the umbilicus today measures 6.3 x 4.4 cm slig htly more bulky compared to previous. Similar involvement and narrowing of the adjacent small bowel. Infiltrative central mesenteric mass involving the proximal jejunum with luminal narrowing is unchang ed in appearance. Stable prominent periaortic and retroperitoneal lymph nodes. A few subtle hepatic lesions are stable in appearance. Diffuse thickening of the appendix suspicious for lymphomatous involvement is similar in appearance. Stable enlarged prostate with thickened seminal vesicles. Recommend correlation PSA. Prostate measure s approximately 4.4 cm. Sigmoid diverticulosis. Mild diffuse fatty filtration of the liver. Normal portal vein and splenic vein. Adrenal glands are n ormal. Normal renal parenchymal enhancement. No hydronephrosis. Normal spleen. Normal GE junction. No rmal caliber abdominal aorta. Mild aortic calcification. Prior cholecystectomy. IMPRESSION: 1. No evidence of metastatic disease in the chest. 2. LEFT central mesenteric mass near the umbilicus is slightly more bulky today measuring 6.3 x 4.4 cm compared to 6.2 x 3.3 cm suspicious for progressive disease Adjacent involvement of the small bow el is similar to previous. 3. Infiltrative subtle mesenteric mass involving the proximal jejunum with luminal narrowing is unch anged in appearance. 4. No other significant changes compared to previous. 5. Diffuse thickening of the appendix is stable suspicious for lymphomatous involvement. 6. Stable prominent periaortic and retroperitoneal lymph nodes. 7. A few subtle hepatic lesions are unchanged in appearance. 8. Enlarged prostate with thickened seminal vesicles. Recommend correlation PSA.
[2023-11-21] MEDS: barium sulfate 450 mL Oral Susp PO (15:37)
[2023-11-21] MEDS: iohexol 350 mg/mL 500 mL Btl (per mL) IV (16:04)
== END 2023-11-21 14:49 | disposition home or self-care (01) ==
LOC: RAD 14:48
PROVIDERS: Visit Provider Internal Medicine Medical Oncology
DX: C82.18 Follicular lymphoma grade II, lymph nodes of multiple sites (principal); K76.9 Liver disease, unspecified; N40.0 Benign prostatic hyperplasia without lower urinary tract symptoms
CPT/HCPCS: 71260; 74177; Q9967

== ENCOUNTER 2023-11-23 10:44 | Oncology outpatient (recurring) (ONCR) | payer MEDICARE, OTHER, SELFPAY | END 2023-12-19 23:59 | disposition home or self-care (01) | PROVIDERS: Visit Provider Internal Medicine Medical Oncology | DX: C82.18 Follicular lymphoma grade II, lymph nodes of multiple sites (principal); E78.9 Disorder of lipoprotein metabolism, unspecified; Z79.899 Other long term (current) drug therapy; E78.2 Mixed hyperlipidemia; C82.90 Follicular lymphoma, unspecified, unspecified site; R53.82 Chronic fatigue, unspecified; R50.9 Fever, unspecified; R63.0 Anorexia; Z68.1 Body mass index [BMI] 19.9 or less, adult; E11.9 Type 2 diabetes mellitus without complications; Z79.4 Long term (current) use of insulin; R73.09 Other abnormal glucose | CPT/HCPCS: 99213 ==

== ENCOUNTER 2024-01-18 07:36 | Oncology outpatient (recurring) (ONCR) | payer MEDICARE, OTHER, SELFPAY ==
[2024-01-18] VITALS (11 sets, daily range): BP systolic 126–158; BP diastolic 68–95; PULSE 49–95; RESP 18; TEMP 36–37.7; O2SAT 92–98
[2024-01-18 08:05] LABS: Basophils # 0.1 10^3/uL (0.0-0.1); Basophils % 1.1 %; Eosinophils # 0.2 10^3/uL (0.0-0.8); Eosinophils % 2.7 %; Hematocrit 49.2 % (37-53); Lymphocytes # 1.3 10^3/uL (0.8-4.8); Lymphocytes % 20.1 %; Mean Corpuscular HGB Conc 34.1 g/dL (30-55); Mean Corpuscular Hemoglobin 29.9 pg (27-33); Mean Corpuscular Volume 87.5 fl (82-101); Mean Platelet Volume 9.5 fL (7.4-10.4); Monocytes # 0.6 10^3/uL (0.2-0.9); Monocytes % 8.4 %; Neutrophils # 4.42 10^3/uL (1.8-7.7); Neutrophils % 67.2 %; Nucleated Red Blood Cells % 0 %; Platelet Count 228 10^3/cmm (157-399); Red Blood Count 5.62 10^6/uL (3.85-5.65); Red Cell Distribution Width 12.4 % (12.1-15.1); White Blood Count 6.57 10^3/uL (3.29-11.43)
[2024-01-18 08:37] LABS: Alanine Aminotransferase 28 U/L (0-41); Albumin Level 4.2 g/dL (3.5-5.2); Alkaline Phosphatase 82 U/L (40-130); Anion Gap 14.7 (5-19); Aspartate Amino Transferase 18 U/L (0-40); Blood Urea Nitrogen 12 mg/dL (8-23); Calcium 9.2 mg/dL (8.5-10.5); Carbon Dioxide 22 mmol/L (22-29); Chloride 106 mmol/L (98-107); Globulin 2.9 g/dL (1.3-4.6); Glomerular Filtration Rate 74.8 mL/min (90-130); Glucose 119 mg/dL (65-115); Lactate Dehydrogenase 195 U/L (135-225); Osmolality Calculated 287 mOsm/kg (285-295); Potassium 4.7 mmol/L (3.5-5.1); Sodium 138 mmol/L (136-145); Total Bilirubin 0.6 mg/dL (0.15-1.2); Total Protein 7.1 g/dL (6.6-8.7)
[2024-01-18] MEDS: sodium chloride 0.9% 1,000 ML 250 ML IV (10:52)
[2024-01-18] MEDS: diphenhydrAMINE 50 mg/mL SDV 1mL 25 MG IVP ×2 (10:53→13:21)
[2024-01-18] MEDS: acetaminophen 325 mg Tablet 650 MG PO (10:53)
[2024-01-18] MEDS: rituximab-abbs 500 MG, rituximab-abbs 350 MG in sodium chloride 0.9% 500 ML 35.2999999999999972 MG IV (11:30)
== END 2024-01-19 23:59 | disposition home or self-care (01) ==
PROVIDERS: Visit Provider Internal Medicine Medical Oncology
DX: Z79.899 Other long term (current) drug therapy; Z51.12 Encounter for antineoplastic immunotherapy; C82.18 Follicular lymphoma grade II, lymph nodes of multiple sites
CPT/HCPCS: 36415; 80053; 83615; 85025; 96375; 96376; 96413; 96415; 99215; J1200; J7030; J7040; Q5115

== ENCOUNTER 2024-02-01 07:45 | Oncology outpatient (recurring) (ONCR) | payer MEDICARE, OTHER, SELFPAY ==
[2024-01-25] VITALS (8 sets, daily range): BP systolic 99–122; BP diastolic 58–71; PULSE 55–70; RESP 16; TEMP 35.8–36.8; O2SAT 92–98
[2024-01-25 08:20] LABS: Basophils # 0.1 10^3/uL (0.0-0.1); Basophils % 1.4 %; Eosinophils # 0.4 10^3/uL (0.0-0.8); Hematocrit 50.7 % (37-53); Lymphocytes # 0.9 10^3/uL (0.8-4.8); Lymphocytes % 12.4 %; Mean Corpuscular HGB Conc 34.1 g/dL (30-55); Mean Corpuscular Hemoglobin 30.2 pg (27-33); Mean Corpuscular Volume 88.6 fl (82-101); Mean Platelet Volume 10.3 fL (7.4-10.4); Monocytes # 0.5 10^3/uL (0.2-0.9); Monocytes % 7.6 %; Neutrophils # 4.99 10^3/uL (1.8-7.7); Neutrophils % 71.5 %; Nucleated Red Blood Cells % 0 %; Platelet Count 225 10^3/cmm (157-399); Red Blood Count 5.72 10^6/uL (3.85-5.65); Red Cell Distribution Width 12.8 % (12.1-15.1); White Blood Count 6.99 10^3/uL (3.29-11.43)
[2024-01-25] MEDS: sodium chloride 0.9% 250 ML 75 ML IV (09:12)
[2024-01-25] MEDS: methylPREDNISolone sod succ 40 mg/mL INJ IVP (09:13)
[2024-01-25] MEDS: diphenhydrAMINE 50 mg/mL SDV 1mL 25 MG IVP (09:21)
[2024-01-25] MEDS: acetaminophen 325 mg Tablet 650 MG PO (09:26)
[2024-01-25] MEDS: rituximab-abbs 500 MG, rituximab-abbs 350 MG in sodium chloride 0.9% 500 ML 50 MG IV (09:58)
[2024-01-25 12:44] LABS: Alanine Aminotransferase 38 U/L (0-41); Albumin Level 3.9 g/dL (3.5-5.2); Alkaline Phosphatase 73 U/L (40-130); Anion Gap 16.5 (5-19); Aspartate Amino Transferase 21 U/L (0-40); Blood Urea Nitrogen 14 mg/dL (8-23); Calcium 9.2 mg/dL (8.5-10.5); Carbon Dioxide 21 mmol/L (22-29); Chloride 104 mmol/L (98-107); Creatinine Clr Calc Pharmacy 88.6919; Globulin 2.7 g/dL (1.3-4.6); Glomerular Filtration Rate 74.8 mL/min (90-130); Glucose 130 mg/dL (65-115); Lactate Dehydrogenase 152 U/L (135-225); Osmolality Calculated 286 mOsm/kg (285-295); Potassium 4.5 mmol/L (3.5-5.1); Sodium 137 mmol/L (136-145); Total Bilirubin 0.6 mg/dL (0.15-1.2); Total Protein 6.6 g/dL (6.6-8.7)
[2024-02-01 08:07] LABS: Basophils # 0.1 10^3/uL (0.0-0.1); Basophils % 0.9 %; Eosinophils # 0.4 10^3/uL (0.0-0.8); Eosinophils % 3.7 %; Hematocrit 47.5 % (37-53); Lymphocytes % 9.6 %; Mean Corpuscular HGB Conc 34.3 g/dL (30-55); Mean Corpuscular Hemoglobin 30.4 pg (27-33); Mean Corpuscular Volume 88.6 fl (82-101); Mean Platelet Volume 10.1 fL (7.4-10.4); Monocytes # 1.8 10^3/uL (0.2-0.9); Monocytes % 16.8 %; Neutrophils # 7.29 10^3/uL (1.8-7.7); Nucleated Red Blood Cells % 0 %; Platelet Count 221 10^3/cmm (157-399); Red Blood Count 5.36 10^6/uL (3.85-5.65); White Blood Count 10.73 10^3/uL (3.29-11.43)
[2024-02-01 08:37] LABS: Alanine Aminotransferase 29 U/L (0-41); Albumin Level 4.1 g/dL (3.5-5.2); Alkaline Phosphatase 91 U/L (40-130); Anion Gap 16.4 (5-19); Aspartate Amino Transferase 18 U/L (0-40); Blood Urea Nitrogen 15 mg/dL (8-23); Calcium 9.2 mg/dL (8.5-10.5); Carbon Dioxide 20 mmol/L (22-29); Chloride 102 mmol/L (98-107); Creatinine Clr Calc Pharmacy 88.6919; Globulin 3.2 g/dL (1.3-4.6); Glomerular Filtration Rate 74.8 mL/min (90-130); Glucose 112 mg/dL (65-115); Osmolality Calculated 280 mOsm/kg (285-295); Potassium 4.4 mmol/L (3.5-5.1); Sodium 134 mmol/L (136-145); Total Bilirubin 0.9 mg/dL (0.15-1.2); Total Protein 7.3 g/dL (6.6-8.7)
[2024-02-01] MEDS: acetaminophen 325 mg Tablet 650 MG PO (09:45)
[2024-02-01] MEDS: diphenhydrAMINE 50 mg/mL SDV 1mL 25 MG IVP (09:46)
[2024-02-01] MEDS: sodium chloride 0.9% 250 ML 45 ML IV (09:46)
[2024-02-01 09:51] VITALS: BP 123/72; PULSE 57; RESP 17; TEMP 36.5; O2SAT 97
[2024-02-01] MEDS: rituximab-abbs 500 MG, rituximab-abbs 350 MG in sodium chloride 0.9% 500 ML 44.1000000000000014 MG IV (10:02)
[2024-02-01 10:30] VITALS: BP 117/69; PULSE 58; RESP 16; TEMP 36.6; O2SAT 98
[2024-02-01 11:00] VITALS: BP 111/65; PULSE 59; RESP 17; TEMP 36.1; O2SAT 95
[2024-02-01 11:30] VITALS: BP 114/70; PULSE 62; RESP 16; TEMP 36.4; O2SAT 96
[2024-02-01 12:00] VITALS: BP 116/71; PULSE 55; RESP 16; TEMP 36.4; O2SAT 96
[2024-02-01 13:07] VITALS: BP 117/76; PULSE 56; RESP 17; TEMP 36.5; O2SAT 98
== END 2024-02-01 23:59 | disposition home or self-care (01) ==
PROVIDERS: Nurse Practitioner Family; Visit Provider Internal Medicine Medical Oncology
DX: Z53.9 Procedure and treatment not carried out, unspecified reason; Z51.12 Encounter for antineoplastic immunotherapy; C82.18 Follicular lymphoma grade II, lymph nodes of multiple sites; Z90.49 Acquired absence of other specified parts of digestive tract; Z79.899 Other long term (current) drug therapy
CPT/HCPCS: 36415; 80053; 83615; 85025; 96375; 96413; 96415; 99214; J1200; J2919; J7040; J7050; Q5115

== ENCOUNTER 2024-02-15 07:30 | Oncology outpatient (recurring) (ONCR) | payer MEDICARE, OTHER, SELFPAY ==
[2024-02-08 07:59] LABS: Basophils # 0.2 10^3/uL (0.0-0.1); Basophils % 2.7 %; Eosinophils # 0.4 10^3/uL (0.0-0.8); Eosinophils % 6.3 %; Hematocrit 47.4 % (37-53); Lymphocytes # 0.9 10^3/uL (0.8-4.8); Lymphocytes % 12.4 %; Mean Corpuscular Hemoglobin 29.9 pg (27-33); Mean Corpuscular Volume 88.1 fl (82-101); Mean Platelet Volume 10.4 fL (7.4-10.4); Monocytes % 13.8 %; Neutrophils # 4.46 10^3/uL (1.8-7.7); Neutrophils % 64.1 %; Nucleated Red Blood Cells % 0 %; Platelet Count 272 10^3/cmm (157-399); Red Blood Count 5.38 10^6/uL (3.85-5.65); Red Cell Distribution Width 13.2 % (12.1-15.1); White Blood Count 6.96 10^3/uL (3.29-11.43)
[2024-02-08 08:19] LABS: Alanine Aminotransferase 34 U/L (0-41); Alkaline Phosphatase 81 U/L (40-130); Aspartate Amino Transferase 18 U/L (0-40); Blood Urea Nitrogen 10 mg/dL (8-23); Carbon Dioxide 22 mmol/L (22-29); Chloride 107 mmol/L (98-107); Globulin 3.2 g/dL (1.3-4.6); Glomerular Filtration Rate 74.8 mL/min (90-130); Glucose 109 mg/dL (65-115); Lactate Dehydrogenase 172 U/L (135-225); Osmolality Calculated 288 mOsm/kg (285-295); Sodium 139 mmol/L (136-145); Total Bilirubin 0.4 mg/dL (0.15-1.2); Total Protein 7.2 g/dL (6.6-8.7)
[2024-02-08] MEDS: sodium chloride 0.9% 250 ML 75 ML IV (09:21)
[2024-02-08] MEDS: diphenhydrAMINE 50 mg/mL SDV 1mL 25 MG IVP (09:21)
[2024-02-08] MEDS: acetaminophen 325 mg Tablet 650 MG PO (09:21)
[2024-02-08] MEDS: rituximab-abbs 500 MG, rituximab-abbs 350 MG in sodium chloride 0.9% 500 ML 76.5 MG IV (09:44)
[2024-02-08 09:48] VITALS: BP 114/70; PULSE 59; RESP 16; TEMP 36.3; O2SAT 94
[2024-02-08 10:20] VITALS: BP 110/70; PULSE 59; RESP 16; TEMP 36.2; O2SAT 95
[2024-02-08 10:50] VITALS: BP 114/66; PULSE 60; RESP 16; TEMP 36.3; O2SAT 94
[2024-02-08 11:25] VITALS: BP 108/67; PULSE 69; RESP 16; TEMP 35.9; O2SAT 96
[2024-02-08 12:54] VITALS: BP 112/69; PULSE 51; TEMP 36.3; O2SAT 94
[2024-02-15 07:53] LABS: Basophils # 0.3 10^3/uL (0.0-0.1); Basophils % 4.2 %; Eosinophils # 0.2 10^3/uL (0.0-0.8); Eosinophils % 2.8 %; Hematocrit 47.9 % (37-53); Lymphocytes # 1.1 10^3/uL (0.8-4.8); Lymphocytes % 15.5 %; Mean Corpuscular HGB Conc 33.6 g/dL (30-55); Mean Corpuscular Hemoglobin 29.8 pg (27-33); Mean Corpuscular Volume 88.7 fl (82-101); Mean Platelet Volume 9.4 fL (7.4-10.4); Monocytes # 0.7 10^3/uL (0.2-0.9); Monocytes % 10.3 %; Neutrophils # 4.77 10^3/uL (1.8-7.7); Neutrophils % 66.6 %; Nucleated Red Blood Cells % 0 %; Platelet Count 388 10^3/cmm (157-399); Red Cell Distribution Width 13.7 % (12.1-15.1); White Blood Count 7.16 10^3/uL (3.29-11.43)
[2024-02-15 08:04] LABS: Alanine Aminotransferase 51 U/L (0-41); Alkaline Phosphatase 85 U/L (40-130); Aspartate Amino Transferase 36 U/L (0-40); Blood Urea Nitrogen 11 mg/dL (8-23); Calcium 9.3 mg/dL (8.5-10.5); Carbon Dioxide 19 mmol/L (22-29); Chloride 109 mmol/L (98-107); Glomerular Filtration Rate 74.8 mL/min (90-130); Glucose 112 mg/dL (65-115); Osmolality Calculated 286 mOsm/kg (285-295); Sodium 138 mmol/L (136-145); Total Bilirubin 0.3 mg/dL (0.15-1.2)
[2024-02-15 08:13] LABS: Anion Gap 14.6 (5-19); Potassium 4.6 mmol/L (3.5-5.1)
[2024-02-15 08:43] LABS: Lactate Dehydrogenase 273 U/L (135-225)
[2024-02-15] MEDS: sodium chloride 0.9% 250 ML 75 ML IV (09:49)
[2024-02-15] MEDS: diphenhydrAMINE 50 mg/mL SDV 1mL 25 MG IVP (09:53)
[2024-02-15] MEDS: acetaminophen 325 mg Tablet 650 MG PO (09:55)
[2024-02-15] MEDS: methylPREDNISolone sod succ 125 mg/2 mL INJ 60 MG IV (09:58)
[2024-02-15 10:42] VITALS: BP 115/67; PULSE 53; RESP 16; TEMP 36.8; O2SAT 97
[2024-02-15] MEDS: rituximab-abbs 500 MG, rituximab-abbs 350 MG in sodium chloride 0.9% 500 ML 100 MG IV (10:42)
[2024-02-15 11:20] VITALS: BP 110/63; PULSE 50; RESP 16; TEMP 36.6; O2SAT 95
[2024-02-15 11:50] VITALS: BP 121/71; PULSE 54; RESP 16; TEMP 36.8; O2SAT 97
[2024-02-15 12:20] VITALS: BP 118/68; PULSE 56; RESP 16; TEMP 36.8; O2SAT 97
[2024-02-15 14:07] VITALS: BP 118/71; PULSE 76; RESP 16; TEMP 36.8; O2SAT 96
== END 2024-02-18 23:59 | disposition home or self-care (01) ==
PROVIDERS: Nurse Practitioner Family; Visit Provider Internal Medicine Medical Oncology
DX: C82.18 Follicular lymphoma grade II, lymph nodes of multiple sites (principal); Z51.12 Encounter for antineoplastic immunotherapy
CPT/HCPCS: 80053; 83615; 85025; 96375; 96413; 96415; 99214; J1200; J2919; J7040; J7050; Q5115

== ENCOUNTER → 2024-02-28 09:52 | Outpatient (BNVA) | payer MEDICARE, OTHER, SELFPAY | PROVIDERS: Visit Provider Nurse Practitioner Family | DX: C82.18 Follicular lymphoma grade II, lymph nodes of multiple sites (principal) | CPT/HCPCS: 80053; 83615; 85025 ==

== ENCOUNTER 2024-03-06 11:00 | Oncology outpatient (recurring) (ONCR) | payer MEDICARE, OTHER, SELFPAY ==
[2024-03-06 11:16] LABS: Basophils # 0.2 10^3/uL (0.0-0.1); Basophils % 3.1 %; Eosinophils # 0.7 10^3/uL (0.0-0.8); Eosinophils % 10.9 %; Hematocrit 48.7 % (37-53); Lymphocytes % 15.3 %; Mean Corpuscular HGB Conc 33.3 g/dL (30-55); Mean Corpuscular Hemoglobin 30.3 pg (27-33); Mean Corpuscular Volume 91.2 fl (82-101); Mean Platelet Volume 10.4 fL (7.4-10.4); Monocytes # 1.2 10^3/uL (0.2-0.9); Monocytes % 17.4 %; Neutrophils # 3.54 10^3/uL (1.8-7.7); Neutrophils % 52.7 %; Nucleated Red Blood Cells % 0 %; Platelet Count 156 10^3/cmm (157-399); Red Blood Count 5.34 10^6/uL (3.85-5.65); Red Cell Distribution Width 14.8 % (12.1-15.1); White Blood Count 6.72 10^3/uL (3.29-11.43)
[2024-03-06 11:37] LABS: Alanine Aminotransferase 281 U/L (0-41); Albumin Level 4.3 g/dL (3.5-5.2); Alkaline Phosphatase 84 U/L (40-130); Anion Gap 16.1 (5-19); Aspartate Amino Transferase 100 U/L (0-40); Blood Urea Nitrogen 12 mg/dL (8-23); Calcium 9.1 mg/dL (8.5-10.5); Carbon Dioxide 24 mmol/L (22-29); Chloride 102 mmol/L (98-107); Globulin 2.4 g/dL (1.3-4.6); Glomerular Filtration Rate 74.8 mL/min (90-130); Glucose 104 mg/dL (65-115); Lactate Dehydrogenase 194 U/L (135-225); Osmolality Calculated 286 mOsm/kg (285-295); Potassium 4.1 mmol/L (3.5-5.1); Sodium 138 mmol/L (136-145); Total Bilirubin 0.6 mg/dL (0.15-1.2); Total Protein 6.7 g/dL (6.6-8.7)
== END 2024-03-20 23:59 | disposition home or self-care (01) ==
PROVIDERS: Nurse Practitioner Family; Visit Provider Internal Medicine Medical Oncology
DX: Z51.12 Encounter for antineoplastic immunotherapy (principal); C82.18 Follicular lymphoma grade II, lymph nodes of multiple sites; E78.2 Mixed hyperlipidemia; C82.90 Follicular lymphoma, unspecified, unspecified site; R73.09 Other abnormal glucose; E78.9 Disorder of lipoprotein metabolism, unspecified; Z79.899 Other long term (current) drug therapy; R53.82 Chronic fatigue, unspecified; R50.9 Fever, unspecified; R63.0 Anorexia; Z68.1 Body mass index [BMI] 19.9 or less, adult; E11.9 Type 2 diabetes mellitus without complications; Z79.4 Long term (current) use of insulin; Z53.9 Procedure and treatment not carried out, unspecified reason
CPT/HCPCS: 36415; 80053; 83615; 85025

== ENCOUNTER 2024-03-27 08:30 | Oncology outpatient (recurring) (ONCR) | payer MEDICARE, OTHER, SELFPAY ==
[2024-03-21 08:08] LABS: Basophils # 0.2 10^3/uL (0.0-0.1); Basophils % 3.9 %; Eosinophils # 0.2 10^3/uL (0.0-0.8); Eosinophils % 4.1 %; Hematocrit 49.4 % (37-53); Lymphocytes # 1.2 10^3/uL (0.8-4.8); Lymphocytes % 19.9 %; Mean Corpuscular Hemoglobin 31.3 pg (27-33); Mean Corpuscular Volume 92.2 fl (82-101); Mean Platelet Volume 9.6 fL (7.4-10.4); Monocytes # 0.7 10^3/uL (0.2-0.9); Monocytes % 12.7 %; Neutrophils # 3.45 10^3/uL (1.8-7.7); Neutrophils % 59.1 %; Nucleated Red Blood Cells % 0 %; Platelet Count 231 10^3/cmm (157-399); Red Blood Count 5.36 10^6/uL (3.85-5.65); Red Cell Distribution Width 15.8 % (12.1-15.1); White Blood Count 5.84 10^3/uL (3.29-11.43)
[2024-03-21 08:19] LABS: Alanine Aminotransferase 168 U/L (0-41); Albumin Level 4.3 g/dL (3.5-5.2); Alkaline Phosphatase 85 U/L (40-130); Anion Gap 15.5 (5-19); Aspartate Amino Transferase 59 U/L (0-40); Blood Urea Nitrogen 11 mg/dL (8-23); Calcium 9.4 mg/dL (8.5-10.5); Carbon Dioxide 21 mmol/L (22-29); Chloride 107 mmol/L (98-107); Globulin 2.5 g/dL (1.3-4.6); Glomerular Filtration Rate 74.8 mL/min (90-130); Glucose 114 mg/dL (65-115); Lactate Dehydrogenase 164 U/L (135-225); Osmolality Calculated 288 mOsm/kg (285-295); Potassium 4.5 mmol/L (3.5-5.1); Sodium 139 mmol/L (136-145); Total Bilirubin 0.7 mg/dL (0.15-1.2); Total Protein 6.8 g/dL (6.6-8.7)
[2024-03-27] MEDS: iohexol 350 mg/mL 500 mL Btl (per mL) PO (07:56)
--- NOTE | 2024-03-27 08:30 | CT_ITS ---
WS: [id number] CT CHEST, ABDOMEN AND PELVIS WITH CONTRAST HISTORY: lymphoma TECHNIQUE: Contiguous 5 mm axial imaging performed through the chest, abdomen and pelvis with IV cont rast, oral contrast has been provided. Coronal and sagittal reformats chest. Coronal and sagittal ref ormats through the abdomen and pelvis. All CT scans at [facility] use at least one of these d ose optimization techniques: automated exposure control; mA and/or kV adjustment per patient size (in cludes targeted exams where dose is matched to clinical indication); or iterative reconstruction. CONTRAST: Omnipaque 350; 100 mL IV. DLP: 1099.01 mGy.cm COMPARISON: 11/21/2023, 08/01/2023, PET/CT 09/10/[address]: No pulmonary mass or nodule. There is a tiny micronodule periphery LEFT lower lobe. Benign granuloma RIGHT lung base. Mild atherosclerosis thoracic aorta. Normal size pulmonary artery. Heart s ize is normal. No mediastinal or hilar adenopathy. No axillary lymph nodes. Small hiatal hernia. Abdomen CT: Mild hepatic steatosis. Normal portal vein. Area of mild decreased attenuation in the RIG HT lobe of the liver adjacent to the gallbladder fossa was also present on the prior study and negati ve on a PET/CT from 2022. The changes within the liver have been present on several prior studies wit hout progression. Prior cholecystectomy. Normal size spleen. No change in the pancreas. No adrenal ma ss. Normal size kidneys. Mild atherosclerosis aorta. Stomach is normal. No small bowel obstruction. There is increased density within few of the small bow el loops in the LEFT abdomen but no obstruction. Mbm-[id number]-skox area of increased attenuation in the c entral mesentery near the proximal jejunum measures 1.3 x 3.1 cm similar to prior studies. The centra l mesenteric mass just to the LEFT of midline at the level of the umbilicus has significantly decreas ed in size but still present. This mass measures 5.2 x 3.1 cm. This mass contacts the small bowel but does not appear to be causing an obstruction. No new lymph nodes and no ascites. Reidentified is thi ckening of the appendix but no appendicitis. Pelvic CT: No free fluid and no adenopathy. Prostate with mild enlargement. No destructive bone lesions. CT/CT chest abdpel w/*[id number] IMPRESSION: 1. Moderate decrease in size of the central mesenteric mass near the umbilicus now measuring 5.2 x 3.1 cm. Mild contact on the small bowel but no obstruction . 2. Rrv-mwhv-ccyo mesenteric haziness in the proximal jejunum is unchanged. 3. No interval change in the subtle hepatic lesions near the gallbladder fossa . Also negative on PET/CT. 4. No metastatic disease to the lungs. 5. Continued mild enlargement of the appendix which is probably lymphatic infi ltration. 6. Subtle area of increased attenuation and dilatation of several small bowel loops within the LEFT abdomen. These findings were not present on the prior chano dy. Could potentially be lymphomatous involvement. Consider follow-up PET/CT im aging versus short-term follow-up CT abdomen and pelvis with IV and oral contra st. 7. No ascites.
[2024-03-27] MEDS: iohexol 350 mg/mL 500 mL Btl (per mL) IV (09:04)
== END 2024-04-20 23:55 | disposition home or self-care (01) ==
PROVIDERS: Nurse Practitioner Family; Visit Provider Internal Medicine Medical Oncology
DX: C82.18 Follicular lymphoma grade II, lymph nodes of multiple sites (principal); Z53.9 Procedure and treatment not carried out, unspecified reason
CPT/HCPCS: 71260; 74177; 80053; 83615; 85025; 99214; Q9967

== ENCOUNTER 2024-07-16 14:58 | Oncology outpatient (recurring) (ONCR) | payer MEDICARE, OTHER, SELFPAY ==
[2024-07-04 13:39] LABS: Basophils # 0.1 10^3/uL (0.0-0.1); Eosinophils # 0.2 10^3/uL (0.0-0.8); Hematocrit 47.5 % (37-53); Lymphocytes # 1.3 10^3/uL (0.8-4.8); Lymphocytes % 17.1 %; Mean Corpuscular HGB Conc 34.1 g/dL (30-55); Mean Corpuscular Hemoglobin 30.6 pg (27-33); Mean Corpuscular Volume 89.8 fl (82-101); Mean Platelet Volume 9.2 fL (7.4-10.4); Monocytes # 0.8 10^3/uL (0.2-0.9); Monocytes % 10.2 %; Neutrophils % 68.4 %; Nucleated Red Blood Cells % 0 %; Platelet Count 229 10^3/cmm (157-399); Red Blood Count 5.29 10^6/uL (3.85-5.65); Red Cell Distribution Width 11.9 % (12.1-15.1); White Blood Count 7.74 10^3/uL (3.29-11.43)
[2024-07-04 14:00] LABS: Alanine Aminotransferase 30 U/L (0-41); Albumin Level 4.3 g/dL (3.5-5.2); Alkaline Phosphatase 71 U/L (40-130); Anion Gap 15.5 (5-19); Aspartate Amino Transferase 18 U/L (0-40); Blood Urea Nitrogen 12 mg/dL (8-23); Calcium 8.3 mg/dL (8.5-10.5); Carbon Dioxide 24 mmol/L (22-29); Chloride 106 mmol/L (98-107); Globulin 1.9 g/dL (1.3-4.6); Glomerular Filtration Rate 66.8 mL/min (90-130); Glucose 203 mg/dL (65-115); Lactate Dehydrogenase 163 U/L (135-225); Osmolality Calculated 298 mOsm/kg (285-295); Potassium 4.5 mmol/L (3.5-5.1); Sodium 141 mmol/L (136-145); Total Bilirubin 0.7 mg/dL (0.15-1.2); Total Protein 6.2 g/dL (6.6-8.7)
--- NOTE | 2024-07-12 15:00 | PETR_ITS ---
PROCEDURE INFORMATION: Exam: PET/CT Skull Base to Mid-thigh Exam date and time: 07/12/2024 3:15 PM Age: 69 years old Clinical indication: Condition or disease; Primary cancer: Follicular lymphoma grade ii; Prior surgery; Surgery date: 6+ months; Surgery type: Colon, gb; Additional info: Surveillance LABS AND CLINICAL REPORTS: Glucose: 75 mg/dl Treatment strategy for malignancy (PET staging): Restaging (PS) TECHNIQUE: Imaging protocol: Following at least four-hour fasting and following the injection of radiopharmaceutical, low dose CT images were obtained. Then, PET images were obtained. Attenuation corrected images were constructed using the CT scan. Fused images of PET and CT were reviewed. The standardized uptake values (SUV) reported below are maximum values within a region of interest, expressed in gm/ml. Exam includes orbital meatal line to mid-thigh. SUV normalization method: BodyWeight Radiopharmaceutical: 13.2 mCi F-18 FDG (Fluorodeoxyglucose), IV. Time of imaging post radiopharmaceutical administration: 45 minutes Injection site: RIGHT AC COMPARISON: PT PET skull to thigh SUBS [id number] 09/10/2022, CT chest abdomen pelvis 03/27/2024 and 11/21/2023 FINDINGS: Brain: Normal physiologic uptake. Pharynx: No abnormal uptake. Larynx: Benign physiologic uptake. Lungs, pleura and trachea: No abnormal uptake. Stable 9 mm calcified granuloma in the right lower lobe. Heart: Unremarkable. There is no cardiomegaly. Severe coronary artery calcification is present. There is no pericardial effusion. Mediastinal space: No abnormal uptake. Maximal blood pool uptake is 2.7 SUV. Liver: No abnormal uptake. Maximum uptake is 3.4 SUV. Gallbladder and biliary ducts: No abnormal uptake. Status post cholecystectomy. Pancreas: No abnormal uptake. Spleen: No abnormal uptake. No splenomegaly. Adrenal glands: No abnormal uptake. No nodules. Kidneys and ureters: Normal physiologic uptake. No hydronephrosis. Stomach and bowel: No abnormal uptake. There are typical osis of the left colon. Intraperitoneal and retroperitoneal spaces: No abnormal uptake. No ascites. Bladder: Normal physiologic uptake. Reproductive: No abnormal uptake. Vasculature: No abnormal uptake. Lymph nodes: No FDG avid lymphadenopathy in the neck, chest, abdomen, pelvis, and extremities. About 4.2 x 2.5 cm mesenteric mass to the left of the midline slightly above the level of the umbilicus (series 202, image 161) is not FDG avid (2.5 SUV) stable in size since 03/27/2024 compatible with sequela of treated lymphoma. Skeleton: Increased linear synovial uptake in the left shoulder measuring 12.3 SUV is compatible with benign inflammatory finding. Stable grade 1 degenerative anterolisthesis of L4. Soft tissues: No abnormal uptake in the visualized head, neck, chest, abdomen, pelvis, and extremities. PET/PET skull to thigh SUBS [id number] IMPRESSION: Complete metabolic response to treatment with no abnormal radiotracer uptake. The response score is 2 based on Deauville 5 point scale. Residual non FDG avid mesenteric mass is stable in size since 03/27/2024. Benign inflammatory uptake in the left shoulder.
[2024-07-16 15:35] LABS: Basophils # 0.1 10^3/uL (0.0-0.1); Basophils % 1.8 %; Eosinophils # 0.2 10^3/uL (0.0-0.8); Eosinophils % 3.5 %; Hematocrit 50.2 % (37-53); Lymphocytes # 1.3 10^3/uL (0.8-4.8); Lymphocytes % 19.9 %; Mean Corpuscular HGB Conc 34.1 g/dL (30-55); Mean Corpuscular Volume 91.1 fl (82-101); Mean Platelet Volume 9.3 fL (7.4-10.4); Monocytes # 0.8 10^3/uL (0.2-0.9); Monocytes % 12.1 %; Neutrophils % 62.2 %; Nucleated Red Blood Cells % 0 %; Platelet Count 245 10^3/cmm (157-399); Red Blood Count 5.51 10^6/uL (3.85-5.65); Red Cell Distribution Width 11.8 % (12.1-15.1); White Blood Count 6.27 10^3/uL (3.29-11.43)
== END 2024-07-20 23:59 | disposition home or self-care (01) ==
PROVIDERS: Internal Medicine Medical Oncology; Visit Provider Nurse Practitioner Family
DX: Z53.9 Procedure and treatment not carried out, unspecified reason (principal); C82.18 Follicular lymphoma grade II, lymph nodes of multiple sites
CPT/HCPCS: 36415; 78815; 80053; 83615; 85025; 99213; 99214; A9552

== ENCOUNTER 2024-07-26 18:34 | Emergency (ER) | payer MEDICARE, OTHER, SELFPAY ==
[2024-07-26 18:50] VITALS: BP 148/91; PULSE 78; RESP 17; TEMP 36.8; O2SAT 97; BMI 30.5
--- NOTE | 2024-07-26 21:00 | ED_ITS ---
HPI - Eye Problem General: Chief complaint: Eye Problems Stated complaint: Right eye post surg Packer sent Time Seen by Provider: 07/26/24 20:22 History of Present Illness: 69-year-old male patient who had catarac t surgery on his right eye couple of months ago in [place]. He states that for the last 3 days or so he has had a black thread in the upper outer quadrant of his vision. It does not seem to move, even with eye movement. He has had some occasional flashes of light here and there but nothing constant. Minimal pain, like there is something mild in his eye that has not improved with eye flushes. No aching deep pain. No pain with movement of his eyes. No matting or tearing. Related Data Home Medications Medication Instructions Recorded Confirmed cholecalciferol (vitamin D3) 25 25 mcg PO DAILY 04/19/22 07/16/24 mcg (1,000 unit) capsule ubidecarenone-omega 3-vit E 25 1 cap PO DAILY 01/19/23 07/16/24 mg-150 (90-60) mg-200 unit capsule (Co [id number] E-Fish Oil) Fish Oil 1 cap PO DAILY 03/08/23 07/16/24 Previous Rx's Medication Instructions Recorded blood sugar diagnostic (ReliOn #200 ea 04/28/22 Prime Test Strips) blood-glucose meter (ReliOn #1 ea 04/28/22 All-In-One Meter kit) lancing device with lancets kit #1 ea 04/28/22 (Accu-Chek FastClix Lancing Device kit) amlodipine 5 mg tablet See Rx Instructions .Route 04/26/23 .COMPLEX #90 tabs aspirin 325 mg tablet,delayed 325 mg PO DAILY #30 tabs 12/06/23 release prochlorperazine maleate 10 mg 10 mg PO Q6H PRN nausea and 12/06/23 tablet (Compazine) vomiting #30 tabs allopurinol 300 mg tablet 300 mg PO DAILY #30 tabs 01/10/24 fluconazole 100 mg tablet 100 mg PO DAILY #90 tabs 01/10/24 (Diflucan) lorazepam 1 mg tablet 0.5 - 1 mg (0.5 - 1 x 1 mg) PO Q6H 01/10/24 PRN Severe Nausea #30 tabs ondansetron HCl 4 mg tablet 4 mg PO QID PRN Nausea/vomiting 01/10/24 #30 tabs prochlorperazine maleate 10 mg 10 mg PO Q4H PRN Mild Nausea #30 01/10/24 tablet (Compazine) tabs sulfamethoxazole 800 1 tab PO MOWEFR #24 tabs 01/10/24 mg-trimethoprim 160 mg tablet (Bactrim DS) valacyclovir 500 mg tablet 500 mg PO BID #60 tabs 01/10/24 empagliflozin 25 mg tablet See Rx Instructions .Route 04/23/24 (Jardiance) .COMPLEX #90 tabs Allergies Allergy/AdvReac Type Severity Reaction Status Date / Time No Known Allergies Allergy Verified 07/16/24 15:02 [facility] [place] [facility] PFSH: Medical History Hyperlipemia, mixed Type 2 diabetes mellitus Obstructive sleep apnea Hypertension History of COVID-19 Follicular lymphoma Surgical History Hx of colonoscopy (03/14/23) Hx of tonsillectomy S/P arthroscopic surgery of right knee x 2 History of resection of small bowel (02/2011) Exploratory laparotomy with segmental small bowel resection History of cholecystectomy (09/2019) Family History Sister Lupus Other Cancer Lung disease Denies family history of Diabetes CAD (coronary artery disease) Clotting disorder Dementia Hyperlipidemia Psychiatric illness Chronic kidney disease (CKD) Suicide Anesthesia complication Bleeding disorder Hypertension Stroke Social History Smoking and tobacco/nicotine status: current every day tobacco/nicotine user cigarettes Packs smoked per day: 1 Years cigarettes smoked: 50 Alcohol intake: never Physical Exam Const: COMMON NORMALS: no acute distress GENERAL APPEARANCE: not ill appearing and not frail appearing HENMT: COMMON NORMALS: normocephalic, atraumatic and Normal external nose present HEAD & SCALP: normocephalic and atraumatic FACE & SINUS: normal facial exam and face symmetric NOSE: Normal external nose present Eye: OTHER: Funduscopic exam reveals potentially mildly dilated retinal vein, is otherwise not remarkable. Extraocular muscles are intact. Visual acuity is otherwise normal except for the small visual defect in the upper outer quadrant. Cornea is normal. Sclera is normal. Pupils are equal and reactive. No pain with reactivity. Chest: CHEST: Yes Symmetrical chest wall rise Resp: COMMON NORMALS: normal respiratory effort and No use of accessory muscles Skin: COMMON NORMALS: no rashes or lesions noted GENERAL SKIN EXAM: no rashes or lesions noted Course Vital Signs: Vital signs: Vital Signs Temperature 98.2 F 07/26/24 18:50 Pulse Rate 78 07/26/24 18:50 Respiratory Rate 17 07/26/24 18:50 Blood Pressure 148/91 07/26/24 18:50 Pulse Oximetry 97 07/26/24 18:50 Oxygen Delivery Me thod Room Air 07/26/24 18:50 MDM - Eye Problem Medical Decision Making Spoke with ophthalmology regarding this patient. Bedside ultrasound did not reveal a clear retinal hemorrhage or retinal detachment, although with his story of the black thread is suspicious for a small retinal detachment. Instructions are to report to the local eye clinic here at 10 AM to meet ophthalmology who will conduct a more thorough dilated exam and give recommendations. Until then, no strenuous activity whatsoever. The patient understands and knows to return for worsening problems in the meantime. No radiology studies performed this visit Discharge Plan Discharge Patient Disposition: Home Clinical Impression: Visual field defect Condition: Stable Prescriptions: No Action cholecalciferol (vitamin D3) 25 mcg (1,000 unit) capsule 25 mcg PO DAILY (DME) blood-glucose meter [ReliOn All-In-One Meter] Kit See Rx Instructions .Route Qty: 1 0RF Rx Instructions: As directed (DME) ReliOn Prime Test Strips Strip See Rx Instructions .Route Qty: 200 3RF Rx Instructions: As directed (DME) lancing device with lancets [Accu-Chek FastClix Lancing Dev] Kit See Rx Instructions .Route Qty: 1 0RF Rx Instructions: As directed Co U-47-Xmvdekt E-Fish Oil 25-150-200 mg-mg-unit capsule 1 cap PO DAILY amlodipine 5 mg tablet See Rx Instructions .ROUTE .COMPLEX Qty: 90 0RF Dose Instruction: TAKE 1 TABLET BY MOUTH EVERY DAY Rx Instructions: TAKE 1 TABLET BY MOUTH EVERY DAY prochlorperazine maleate [Compazine] 10 mg tablet 10 mg PO Q6H PRN (Reason: nausea and vomiting) Qty: 30 2RF aspirin 325 mg tablet,delayed release (DR/EC) 325 mg PO DAILY Qty: 30 2RF Jardiance 25 mg tablet See Rx Instructions .ROUTE .COMPLEX Qty: 90 3RF Dose Instruction: TAKE 1 TABLET BY MOUTH EVERY DAY Rx Instructions: TAKE 1 TABLET BY MOUTH EVERY DAY Fish Oil 1 cap PO DAILY Diflucan 100 mg tablet 100 mg PO DAILY Qty: 90 2RF Rx Instructions: For fungal infection prevention. ondansetron HCl 4 mg Tablet 4 mg PO QID PRN (Reason: Nausea/vomiting) Qty: 30 3RF Compazine 10 mg tablet 10 mg PO Q4H PRN (Reason: Mild Nausea) Qty: 30 3RF valacyclovir 500 mg tablet 500 mg PO BID Qty: 60 5RF Rx Instructions: Continue 3 months post treatment for prevention of viral infection. Bactrim DS 800-160 mg tablet 1 tab PO MOWEFR Qty: 24 5RF Rx Instructions: For infection prevention allopurinol 300 mg tablet 300 mg PO DAILY Qty: 30 3RF lorazepam 1 mg tablet 0.5 - 1 mg PO Q6H PRN (Reason: Severe Nausea) Qty: 30 3RF Discharge Orders: Discharge ED (Routine); Ordered 07/26/24 Ordered By: Brennan Knight Referrals: Melissa Berumen FNP [Primary Care Provider] - Jignesh Packer [Physician] - 1-3 days Patient Instructions: Opioid Safety, Pain Management, Vision Problems Activity Restrictions/Additional Instructions: No strenuous activity such as lifting greater than 5 pounds, pushing, pulling, sexual intercourse, etc. Meet Dr. Packer at the eye clinic, address as listed above, at 10:00 in the morning tomorrow morning for a thorough eye exam. Further recommendations will come from him. Return for worsening vision, pain, other problems in the meantime. Coding Level of Care Code ED [employer] for Grace Truong
== END 2024-07-26 21:07 | disposition home or self-care (01) ==
PROVIDERS: Emergency Provider Emergency Medicine; PCP Nurse Practitioner Family
DX: H53.40 Unspecified visual field defects (principal); Z79.82 Long term (current) use of aspirin; F17.210 Nicotine dependence, cigarettes, uncomplicated; E11.9 Type 2 diabetes mellitus without complications; E78.5 Hyperlipidemia, unspecified; I10 Essential (primary) hypertension
CPT/HCPCS: 99281

== ENCOUNTER → 2024-08-07 10:07 | Outpatient (BNVA) | payer MEDICARE, OTHER, SELFPAY | PROVIDERS: PCP Nurse Practitioner Family; Visit Provider Internal Medicine Cardiovascular Disease | DX: R07.9 Chest pain, unspecified (principal) | CPT/HCPCS: 93005; 99204 ==

== ENCOUNTER 2024-08-16 07:00 | Outpatient (CLI) | payer MEDICARE, OTHER, SELFPAY ==
--- NOTE | 2024-08-16 | ECG_ITS ---
[employer]fusion[employer] Test Date: 2024-08-16 Pat Name: Jt Tate Department: Room: Gender: Male Undergraduate Internship: : 1955 Requested By: Flaca Tripathi Order Number: [id number] Tammy MD: Mynor Donaldson M.D. Interpretive Statements LEXISCAN: Procedure: At the baseline, the blood pressure was 133/73mmHg with a heart rate of 62 bpm. The electrocardiogram showed normal sinus rhythm, interventricular conduction delay with normal ST and T's. The Lexiscan was infused over a period of 20 seconds. A total of 0.4 mg of Lexiscan was infused. The stress phase was continued for a total of 5 minutes. Heart rate was at the end of stress phase was 75 bpm and a blood pressure of 135/74 mmHg. The EKG at the peak infusion revealed normal sinus rhythm with no significant ST-T wave changes. Sestamibi was injected 20 seconds after the Lexiscan infusion. Blood pressure at the end of recovery phase was 134/70 mmHg with a heart rate of 70 bpm. Conclusion: 1. Normal EKG response to Lexiscan infusion 2. No Lexiscan induced chest pain or cardiac arrhythmia. 3. Normal blood pressure and heart rate response. 4. Sestamibi/sestamibi perfusion scan pending; see separate report. Electronically Signed On 08-18-2024 21:02:49 [employer] by Mynor Donaldson M.D. [email or web address]
[2024-08-16 07:14] VITALS: BMI 30.5
--- NOTE | 2024-08-16 07:18 | NMCV_ITS ---
NM cynthia perf SPECT r/s* [id number] Jt Tate Age: 69 Gender: M : 1955 Exam Date: 08/16/2024 07:18 Ordering Phys: Flaca Tripathi MD ([email or web address]) Technologist: FACUNDO Swartz Exam Location: [facility] Indications: cp STRESS TEST [facility] IMAGE PROTOCOL Rest/Stress 1 Lexiscan Day Radiopharmaceutical Dose (mCi) Administration Site Administered by Rest: Tc-99m 10.4 IV Jess Badillo [employer] Sestamibi Stress:Tc-99m 32.2 IV Jess Badillo, [employer] Sestamibi Rest: 16-Aug-2024 60 Discovery 630 Stress: 16-Aug-2024 30 Discovery 630 0.4mg Lexiscan. Images obtained in supine and prone position. SPECT RESULTS Technical Quality: Good Raw Data Analysis: Normal Image Corrections: No attenuation or motion correction applied Summed Stress Score: 3 Summed Rest Score: 0 Summed Difference Score: 3 PERFUSION FINDINGS There is a small sized area of reversible perfusion defect seen in the apical lateral and inferolateral velázquez. This is consistent with small area of ischemia in the left circumflex artery territory. FUNCTIONAL RESULTS (calculated via Gated SPECT) Stress Image LV EF (%): 62 Stress EDV (mL):129 TID: 1.12 Stress ESV (mL):49 FUNCTIONAL FINDINGS: There is normal left ventricular systolic function. IMPRESSIONS 1. Small area of ischemia seen in the left circumflex artery territory. 2. LV systolic function is normal Mynor Donaldson MD (Electronically Signed) Final Date: 16 August 2024 11:13 S
[2024-08-16] MEDS: regadenoson 0.4 Mg/5 ml Syringe IVP (08:41)
[2024-08-16 09:47] VITALS: BP 134/70; PULSE 68
== END 2024-08-16 07:01 | disposition home or self-care (01) ==
PROVIDERS: PCP Nurse Practitioner Family; Visit Provider Internal Medicine Cardiovascular Disease
DX: I21.21 ST elevation (STEMI) myocardial infarction involving left circumflex coronary artery (principal); I25.10 Atherosclerotic heart disease of native coronary artery without angina pectoris; R06.02 Shortness of breath
CPT/HCPCS: 36415; 78452; 93017; 96374; A9500; J2785

== ENCOUNTER 2024-10-11 08:13 | Outpatient (CLI) | payer MEDICARE, SELFPAY ==
--- NOTE | 2024-10-11 08:30 | PETR_ITS ---
PROCEDURE INFORMATION: Exam: PET/CT Skull Base to Mid-thigh Exam date and time: 10/11/2024 9:22 AM Age: 69 years old Clinical indication: Condition or disease; Primary cancer: Follicular lymphoma grade ii; Prior surgery; Surgery date: 6+ months; Surgery type: Colon, gb; Additional info: Follicular lymphoma grade ii, Dr. Rodríguez would like this done on 10/04 LABS AND CLINICAL REPORTS: Glucose: 106 mg/dl Treatment strategy for malignancy (PET staging): Restaging (PS) TECHNIQUE: Imaging protocol: Following at least four-hour fasting and following the injection of radiopharmaceutical, low dose CT images were obtained. Then, PET images were obtained. Attenuation corrected images were constructed using the CT scan. Fused images of PET and CT were reviewed. The standardized uptake values (SUV) reported below are maximum values within a region of interest, expressed in gm/ml. Exam includes orbital meatal line to mid-thigh. SUV normalization method: BodyWeight Radiopharmaceutical: 11.57 mCi F-18 FDG (Fluorodeoxyglucose), IV. Time of imaging post radiopharmaceutical administration: 47 minutes Injection site: right hand COMPARISON: PT PET skull to thigh SUBS [id number] 07/12/2024 FINDINGS: Brain: Normal physiologic uptake. Pharynx: No abnormal uptake. Larynx: No abnormal uptake. Lungs, pleura and trachea: No abnormal uptake. No suspicious lung nodules or masses. Stable 6 mm calcified granuloma in the right lower lobe. No pleural effusion. Heart: No abnormal uptake. There is no cardiomegaly. Severe coronary artery calcification is present. There is no pericardial effusion. Mediastinal space: No abnormal uptake. Maximum blood pool uptake is 2.5 SUV. Liver: No abnormal uptake. Maximum uptake is 3.5 SUV. Gallbladder and biliary ducts: No abnormal uptake. Status post cholecystectomy. Pancreas: No abnormal uptake. Stable non development, atrophy or fatty changes in the tail. Spleen: No abnormal uptake. No splenomegaly. Adrenal glands: No abnormal uptake. No nodules. Kidneys and ureters: Normal physiologic uptake. No hydronephrosis. Stomach and bowel: No abnormal uptake. Unremarkable small bowel anastomosis in the left mid abdomen. Stable diverticulosis of the sigmoid colon. Vasculature: No abnormal uptake. Lymph nodes: Stable in size not abnormally enlarged left inguinal lymph node measures 3.2 SUV, previously 2.8 SUV (axial image 277). No FDG avid lymphadenopathy in the neck, chest, abdomen, pelvis, right groin and the axillas. Sequela of treated lymphoma in the mesentery noted as small mass on series 202, image 196 decreased in size from 4.2 x 2.5 cm to 3.6 x 1.5 cm with persistent low-grade uptake not exceeding 2.5 SUV Skeleton: Linear synovial uptake in the left glenohumeral joint is suggestive of benign finding. Stable grade 1 degenerative anterolisthesis of L4. Soft tissues: Persistent increased linear uptake (5.3 SUV) extending from the injection site in the right hand throughout the forearm and arm toward the right axilla is suggestive of lymphatic drainage of injected FDG due to some extravasation. PET/PET skull to thigh SUBS [id number] IMPRESSION: Borderline uptake of 3.2 SUV within normal in size left inguinal lymph node is of indeterminate significance, may be benign reactive in nature. Otherwise there is no FDG avid findings concerning for recurrent lymphoma. Assuming likely benign nature of the left inguinal lymph node, the response score is 2 based on Deauville 5 point scale. Non FDG avid residual mesenteric mass shows further decrease in size in comparison with 07/12/2024. Persistent benign inflammatory uptake in the left shoulder.
== END 2024-10-11 08:14 | disposition home or self-care (01) ==
PROVIDERS: PCP Nurse Practitioner Family; Visit Provider Internal Medicine Medical Oncology
DX: C82.18 Follicular lymphoma grade II, lymph nodes of multiple sites (principal); Z98.890 Other specified postprocedural states; J84.10 Pulmonary fibrosis, unspecified; I25.10 Atherosclerotic heart disease of native coronary artery without angina pectoris; Z90.49 Acquired absence of other specified parts of digestive tract; K57.30 Diverticulosis of large intestine without perforation or abscess without bleeding; R59.0 Localized enlarged lymph nodes; R93.6 Abnormal findings on diagnostic imaging of limbs; R93.7 Abnormal findings on diagnostic imaging of other parts of musculoskeletal system
CPT/HCPCS: 78815; A9552

== ENCOUNTER 2024-10-16 11:16 | Oncology outpatient (recurring) (ONCR) | payer MEDICARE, OTHER, SELFPAY ==
[2024-10-16 11:50] LABS: Basophils # 0.1 10^3/uL (0.0-0.1); Basophils % 1.3 %; Eosinophils # 0.1 10^3/uL (0.0-0.8); Eosinophils % 2.3 %; Hematocrit 46.5 % (37-53); Lymphocytes # 1.3 10^3/uL (0.8-4.8); Lymphocytes % 22.7 %; Mean Corpuscular HGB Conc 34.4 g/dL (30-55); Mean Corpuscular Hemoglobin 31.1 pg (27-33); Mean Corpuscular Volume 90.5 fl (82-101); Mean Platelet Volume 9.2 fL (7.4-10.4); Monocytes # 0.9 10^3/uL (0.2-0.9); Monocytes % 16.4 %; Neutrophils # 3.15 10^3/uL (1.8-7.7); Neutrophils % 56.9 %; Nucleated Red Blood Cells % 0 %; Platelet Count 188 10^3/cmm (157-399); Red Blood Count 5.14 10^6/uL (3.85-5.65); Red Cell Distribution Width 12.2 % (12.1-15.1); White Blood Count 5.54 10^3/uL (3.29-11.43)
[2024-10-16 12:08] LABS: Alanine Aminotransferase 38 U/L (0-41); Albumin Level 4.3 g/dL (3.5-5.2); Alkaline Phosphatase 64 U/L (40-130); Anion Gap 16.8 (5-19); Aspartate Amino Transferase 27 U/L (0-40); Blood Urea Nitrogen 12 mg/dL (8-23); Calcium 8.9 mg/dL (8.5-10.5); Carbon Dioxide 22 mmol/L (22-29); Chloride 106 mmol/L (98-107); Creatinine Clr Calc Pharmacy 89.1488; Globulin 2.4 g/dL (1.3-4.6); Glomerular Filtration Rate 74.5 mL/min (90-130); Glucose 106 mg/dL (65-115); Lactate Dehydrogenase 227 U/L (135-225); Osmolality Calculated 290 mOsm/kg (285-295); Potassium 4.8 mmol/L (3.5-5.1); Sodium 140 mmol/L (136-145); Total Bilirubin 0.8 mg/dL (0.15-1.2); Total Protein 6.7 g/dL (6.6-8.7)
== END 2024-10-18 23:59 | disposition home or self-care (01) ==
PROVIDERS: Internal Medicine Medical Oncology; PCP Nurse Practitioner Family; Visit Provider Nurse Practitioner Family
DX: Z08 Encounter for follow-up examination after completed treatment for malignant neoplasm (principal); Z85.72 Personal history of non-Hodgkin lymphomas; F17.210 Nicotine dependence, cigarettes, uncomplicated; Z92.25 Personal history of immunosuppression therapy; Z92.21 Personal history of antineoplastic chemotherapy
CPT/HCPCS: 36415; 80053; 83615; 85025; 99213

== ENCOUNTER 2025-01-08 11:44 | Oncology outpatient (recurring) (ONCR) | payer MEDICARE, OTHER, SELFPAY ==
[2025-01-08 12:20] LABS: Basophils # 0.1 10^3/uL (0.0-0.1); Basophils % 1.1 %; Eosinophils # 0.2 10^3/uL (0.0-0.8); Eosinophils % 1.8 %; Lymphocytes # 1.8 10^3/uL (0.8-4.8); Lymphocytes % 18.5 %; Mean Corpuscular HGB Conc 33.2 g/dL (30-55); Mean Corpuscular Hemoglobin 29.9 pg (27-33); Mean Corpuscular Volume 90.1 fl (82-101); Mean Platelet Volume 9.4 fL (7.4-10.4); Monocytes # 0.9 10^3/uL (0.2-0.9); Monocytes % 9.2 %; Neutrophils # 6.56 10^3/uL (1.8-7.7); Neutrophils % 69.1 %; Nucleated Red Blood Cells % 0 %; Platelet Count 226 10^3/cmm (157-399); Red Blood Count 5.55 10^6/uL (3.85-5.65); Red Cell Distribution Width 11.9 % (12.1-15.1); White Blood Count 9.48 10^3/uL (3.29-11.43)
[2025-01-08 12:22] LABS: Erythrocyte Sedimentation Rate 4 mm/hr (0-10)
[2025-01-08 12:37] LABS: Alanine Aminotransferase 35 U/L (0-41); Albumin Level 4.2 g/dL (3.5-5.2); Alkaline Phosphatase 58 U/L (40-130); Anion Gap 17.1 (5-19); Aspartate Amino Transferase 23 U/L (0-40); Blood Urea Nitrogen 13 mg/dL (8-23); Calcium 9.2 mg/dL (8.5-10.5); Carbon Dioxide 20 mmol/L (22-29); Chloride 107 mmol/L (98-107); Creatinine Clr Calc Pharmacy 88.9647; Globulin 2.6 g/dL (1.3-4.6); Glomerular Filtration Rate 74.5 mL/min (90-130); Glucose 94 mg/dL (65-115); Lactate Dehydrogenase 182 U/L (135-225); Osmolality Calculated 290 mOsm/kg (285-295); Potassium 4.1 mmol/L (3.5-5.1); Sodium 140 mmol/L (136-145); Total Bilirubin 0.5 mg/dL (0.15-1.2); Total Protein 6.8 g/dL (6.6-8.7); Uric Acid 4.4 mg/dL (3.4-7.0)
== END 2025-01-18 23:59 | disposition home or self-care (01) ==
LOC: ONCMED 11:45
PROVIDERS: PCP Nurse Practitioner Family; Visit Provider Internal Medicine
DX: Z08 Encounter for follow-up examination after completed treatment for malignant neoplasm (principal); Z85.72 Personal history of non-Hodgkin lymphomas; F17.210 Nicotine dependence, cigarettes, uncomplicated; Z92.25 Personal history of immunosuppression therapy; Z92.21 Personal history of antineoplastic chemotherapy
CPT/HCPCS: 36415; 80053; 82232; 83615; 84550; 85025; 85651; 99214

== ENCOUNTER → 2025-04-04 10:39 | Outpatient (BNVA) | payer MEDICARE, OTHER, SELFPAY | PROVIDERS: PCP Nurse Practitioner Family; Visit Provider Internal Medicine Cardiovascular Disease | DX: I25.10 Atherosclerotic heart disease of native coronary artery without angina pectoris (principal); I10 Essential (primary) hypertension; E78.2 Mixed hyperlipidemia; E11.9 Type 2 diabetes mellitus without complications; Z79.84 Long term (current) use of oral hypoglycemic drugs; C82.90 Follicular lymphoma, unspecified, unspecified site; K21.9 Gastro-esophageal reflux disease without esophagitis; Z72.0 Tobacco use | CPT/HCPCS: 99214 ==

== ENCOUNTER 2025-04-16 11:30 | Oncology outpatient (recurring) (ONCR) | payer MEDICARE, OTHER, SELFPAY ==
--- NOTE | 2025-04-09 12:00 | CTR_ITS ---
PROCEDURE INFORMATION: Exam: CT Chest With Contrast; Diagnostic Exam date and time: 04/09/2025 12:44 PM Age: 69 years old Clinical indication: Condition or disease; Other: Follicular lymphoma grade ii; Prior surgery; Surgery date: 6+ months; Surgery type: Colon, gb TECHNIQUE: Imaging protocol: Diagnostic computed tomography of the chest with contrast. Radiation optimization: All CT scans at this facility use at least one of these dose optimization techniques: automated exposure control; mA and/or kV adjustment per patient size (includes targeted exams where dose is matched to clinical indication); or iterative reconstruction. Contrast material: OMNI 350; Contrast volume: 100 ml; Contrast route: INTRAVENOUS (IV); COMPARISON: PT PET skull to thigh SUBS [id number] 10/11/2024 9:22 AM, and CT chest abdomen and pelvis 03/27/2024 RADIATION DOSE METRICS: Total DLP (mGy-cm): 1274.18 FINDINGS: Lungs: Granulomatous changes are present in the lungs and hilum. Pleural spaces: Unremarkable. No pneumothorax. No pleural effusion. Heart: Heart size is normal. Lymph nodes: Unremarkable. No enlarged lymph nodes. Vasculature: There is atherosclerosis of the coronary arteries. Bones/joints: Mild degenerative changes of the bony structures is present. Soft tissues: Unremarkable. PROCEDURE INFORMATION: Exam: CT Abdomen And Pelvis With Contrast Exam date and time: 04/09/2025 12:44 PM Age: 69 years old Clinical indication: Condition or disease; Other: Follicular lymphoma grade ii; Prior surgery; Surgery date: 6+ months; Surgery type: Colon, gb TECHNIQUE: Imaging protocol: Computed tomography of the abdomen and pelvis with contrast. Radiation optimization: All CT scans at this facility use at least one of these dose optimization techniques: automated exposure control; mA and/or kV adjustment per patient size (includes targeted exams where dose is matched to clinical indication); or iterative reconstruction. Contrast material: OMNI 350; Contrast volume: 100 ml; Contrast route: INTRAVENOUS (IV); COMPARISON: PT PET skull to thigh SUBS [id number] 10/11/2024 9:22 AM RADIATION DOSE METRICS: Total DLP (mGy-cm): 1274.18 FINDINGS: Lungs: Visualized portions of the lungs are clear. No effusions. Liver: Unremarkable. No mass. Gallbladder and biliary ducts: The gallbladder is surgically absent. Pancreas: Normal. No ductal dilation. Spleen: Normal. No splenomegaly. Adrenal glands: Normal. No mass. Kidneys and ureters: Normal. No hydronephrosis. Stomach and bowel: There is diverticulosis without evidence of diverticulitis. Appendix: The appendix is thickened and nodular in appearance. It measures up to 1.7 cm in diameter. This however is stable. There are no surrounding inflammatory changes. Intraperitoneal space: Unremarkable. No free air. No significant fluid collection. Vasculature: There is atherosclerosis of the aorta and branch vessels. No aneurysmal dilatation identified. Lymph nodes: Unremarkable. No enlarged lymph nodes. Urinary bladder: Unremarkable as visualized. Reproductive: Unremarkable as visualized. Bones/joints: There are degenerative changes of the spine. Grade 1 anterior spondylolisthesis of L3 on L4 is noted. This is stable compared to prior study. Soft tissues: Mesenteric soft tissue mass is again identified measuring 4.1 x 2.3 cm. It abuts several loops of small bowel. There is no evidence of bowel obstruction. CT/CT chest abdpel w/*[id number] IMPRESSION: 1. No adenopathy or new abnormality. 2. Coronary artery calcifications. IMPRESSION: 1. Mesenteric soft tissue mass has decreased since the prior examination. No new masses are identified. 2. Lobulated thickened appearing appendix which appears stable. 3. Diverticulosis without evidence of diverticulitis. 4. Additional findings as described above.
[2025-04-09 12:38] LABS: Blood Urea Nitrogen 14 mg/dL (8-23)
[2025-04-09] MEDS: iohexol 350 mg/mL 500 mL Btl (per mL) PO (12:46)
[2025-04-09] MEDS: iohexol 350 mg/mL 500 mL Btl (per mL) IV (12:48)
[2025-04-16 11:35] LABS: Hematocrit 48.3 % (37-53); Hemoglobin 16.00 g/dL (11.27-16.99); Mean Corpuscular HGB Conc 33.1 g/dL (30-55); Mean Corpuscular Hemoglobin 29.7 pg (27-33); Mean Corpuscular Volume 89.6 fl (82-101); Nucleated Red Blood Cells % 0 %; Platelet Count 211 10^3/cmm (157-399); Red Blood Count 5.39 10^6/uL (3.85-5.65); White Blood Count 8.62 10^3/uL (3.29-11.43)
[2025-04-16 11:53] LABS: Alanine Aminotransferase 28 U/L (0-41); Albumin Level 4.2 g/dL (3.5-5.2); Alkaline Phosphatase 59 U/L (40-130); Anion Gap 13.2 (5-19); Aspartate Amino Transferase 22 U/L (0-40); Blood Urea Nitrogen 12 mg/dL (8-23); Calcium 9.2 mg/dL (8.5-10.5); Carbon Dioxide 23 mmol/L (22-29); Chloride 103 mmol/L (98-107); Globulin 2.4 g/dL (1.3-4.6); Glucose 188 mg/dL (65-115); Osmolality Calculated 285 mOsm/kg (285-295); Potassium 4.2 mmol/L (3.5-5.1); Sodium 135 mmol/L (136-145); Total Protein 6.6 g/dL (6.6-8.7); Uric Acid 4.8 mg/dL (3.4-7.0)
== END 2025-04-20 23:59 | disposition home or self-care (01) ==
PROVIDERS: PCP Nurse Practitioner Family; Visit Provider Internal Medicine
DX: Z08 Encounter for follow-up examination after completed treatment for malignant neoplasm; Z85.72 Personal history of non-Hodgkin lymphomas; F17.210 Nicotine dependence, cigarettes, uncomplicated; R03.0 Elevated blood-pressure reading, without diagnosis of hypertension; Z92.25 Personal history of immunosuppression therapy; Z92.21 Personal history of antineoplastic chemotherapy; Z53.9 Procedure and treatment not carried out, unspecified reason
CPT/HCPCS: 36415; 71260; 74177; 80053; 82232; 82565; 83615; 84520; 84550; 85025; 85651; 99215